=== PATIENT | female | born 1975 | race Caucasian/White ===

== ENCOUNTER → 2017-12-30 10:28 | Outpatient (CLI) | payer BC, SELFPAY ==
[2018-01-03 03:07] LABS: IgG, Quant 887 mg/dL (700-1600); Immunoglobulin G, Subclass 1 533 mg/dL (248-810); Immunoglobulin G, Subclass 2 212 mg/dL (130-555); Immunoglobulin G, Subclass 3 58 mg/dL (15-102)
[2018-01-03 10:37] LABS: Immunoglobulin G, Subclass 4 4 mg/dL (2-96)
== END ==
LOC: LAB 10:29 → LABSPEC 13:43
PROVIDERS: Visit Provider Otolaryngology Otolaryngic Allergy
DX: J30.1 Allergic rhinitis due to pollen (principal)
CPT/HCPCS: 82784; 82787

== ENCOUNTER → 2018-03-23 10:50 | Outpatient (CLI) | payer BC, SELFPAY ==
[2018-03-23 12:12] LABS: T4 Free Direct 0.91 ng/dL (0.76-1.46); Thyroid Stim Hormone (TSH) 2.04 uIU/mL (0.358-3.74)
== END ==
PROVIDERS: Family Provider Internal Medicine; PCP Internal Medicine; Visit Provider Nurse Practitioner Family
DX: E66.9 Obesity, unspecified (principal); E03.9 Hypothyroidism, unspecified
CPT/HCPCS: 36415; 84439; 84443

== ENCOUNTER → 2018-04-21 13:57 | Outpatient (CLI) | payer BC, SELFPAY ==
[2018-04-21 14:25] LABS: Ferritin 111 ng/mL (8-252); Iron 86 ug/dL (50-170); Iron Binding Capacity,Total 383 ug/dL (250-450)
== END ==
PROVIDERS: Family Provider Internal Medicine; PCP Internal Medicine; Visit Provider Psychiatry & Neurology Neurology
DX: E61.1 Iron deficiency (principal); G25.81 Restless legs syndrome
CPT/HCPCS: 36415; 82728; 83540; 83550

== ENCOUNTER → 2018-05-01 17:56 | Outpatient (CLI) | payer BC, SELFPAY ==
[2018-05-08 06:07] LABS: HPV Genotype 16, Aptima Negative (Negative)
[2018-05-08 11:09] LABS: HPV APTIMA, High Risk Positive (Negative); HPV Genotype 18,45 Aptima Negative (Negative)
== END ==
PROVIDERS: Family Provider Internal Medicine; PCP Internal Medicine; Visit Provider Nurse Practitioner Women's Health
DX: Z12.4 Encounter for screening for malignant neoplasm of cervix (principal)
CPT/HCPCS: 88175; G0145

== ENCOUNTER 2018-06-05 13:00 | Outpatient (RCR) | payer BC, SELFPAY | END 2018-06-11 23:59 | LOC: NS 13:00 | PROVIDERS: Family Provider Internal Medicine; PCP Internal Medicine; Visit Provider Nurse Practitioner Family | DX: E66.9 Obesity, unspecified (principal); Z68.30 Body mass index [BMI] 30.0-30.9, adult; Z71.3 Dietary counseling and surveillance | CPT/HCPCS: 97802; 97803 ==

== ENCOUNTER 2018-08-13 20:33 | Emergency (ER) | payer BC, SELFPAY ==
[2018-08-13 20:36] VITALS: BP 162/80; PULSE 92; RESP 18; TEMP 35.9; O2SAT 98; BMI 29.1
--- NOTE | 2018-08-13 21:18 | ED.VISSUMM ---
- ER Visit Summary Date of Service: 08/13/18 Chief Complaint: Rash History of Present Illness: The patient is a 42 F who had right knee surgery on July 31 with [facility] in [place]. She states the put stem cells into a cartilage defect in her knee. She noted a rash-like spots around the knee 3 days ago. It is not overlying the area of the incision. She initially thought she does have bruising with the lesions seem to be spreading. She has not had fever or chills. She has not had significant drainage from the wound. Physical Examination: Vital signs significant for blood pressure 162/80, otherwise unremarkable. Patient sitting upright in bed no acute distress. Right lower extremity examination reveals a clean incision over the anterior right knee. There are a few areas of ecchymosis noted to both the medial and lateral sides of the patella where the brace is rubbing against her skin. There are a few patchy areas of folliculitis along the medial distal aspect of the right knee. This is the area that the patient describes as spreading towards the back of her knee. There is no significant lower extremity edema and only minimal calf tenderness. She has strong distal pulses. Test Results: [] Emergency Department Course and Treatment: Patient does raise concern about possibility of blood clot as she does have a history of lupus and has had prior clot. Ultrasound is unavailable at this time but should be written for an order to come back tomorrow for a venous ultrasound. My clinical suspicion for clot is low she would not be given a dose of anticoagulants at this time. Patient will be started on doxycycline to help cover skin bacteria with her folliculitis. Treatment Plan: [] Disposition: Discharge Impression: Folliculitis This note was generated with [employer] dictation software. It may contain incorrect words, spelling, and punctuation that were not noted in review of the chart prior to signing ED Disposition - Plan for ED Patient: Disposition: Home or Assisted Living Chief Complaint: Rash Instructions: ED Folliculitis, ED Leg Swelling Unilateral Prescriptions: Doxycycline Monohydrate 100 mg PO BID #20 capsule Referrals: Mojgan Cintron MD [Primary Care Provider] - Additional Instructions: Vascular ultrasound will call you tomorrow to set up a time for ultrasound of your leg.
[2018-08-13] MEDS: Doxycycline 100 MG CAPSULE PO (21:25)
--- OUTSIDE RECORDS SUMMARY | 2018-10-07 01:51 | XMS RPT_ITS ---
:1975 Author Organization [employer] Address [address] [place] [id number] Phone Care Team Providers Name Role Phone Junaid Ortiz MD Unavailable Reason for Visit Reason For Visit Description Start Date Postop - 1st visit Preliminary reason for visit data, not yet signed by the author as of right knee post TOMAS procedure - Autologous Chondrocyte Implantation - Medial femoral condyle 1.5 x 2.5 full-thickness condylar defect medial femoral condyle. on 07/31/2018 Preliminary reason for visit data, not yet signed by the author as of Chief Complaint Chief Complaint Description Start Date right knee post TOMAS procedure - Autologous Chondrocyte Implantation - Medial femoral condyle 1.5 x 2.5 full-thickness condylar defect medial femoral condyle. on 07/31/2018 Preliminary chief complaint data, not yet signed by the author as of Instructions Instruction Description Start Date CompletedPatient advised to follow-up with Primary Care Physician for BMI management. Plan of Care Type Date Detail Appointment 11:00 AM Junaid Ortiz MD, [address] [place], [address], Appointment 09:45 AM Junaid Ortiz MD, [address] [place], [address], Medications Medication Instructions Start Stop Generic Name NDC Provider Date Date NORCO 10-325 MG Take 1 tablet HYDROCODONE-ACETAMIN 02394885203 Junaid Adrian TABS by mouth INDRA Ortiz MD 6 hours as needed for pain SYNTHROID 125 1 tablet daily LEVOTHYROXINE SODIUM 57079607975 Junaid J MCG TABS /07 Angel CHRISTINA PLAQUENIL 200 1 tablet twice HYDROXYCHLOROQUINE 14904823997 Junaid J MG TABS daily / SULFATE Angel CHRISTINA MICROGESTIN 1 tablet daily NORETHINDRONE 56126684642 Junaid J 1.5 1.5- ACET-ETHINYL EST Angel CHRISTINA MG-MCG TABS AUVI-Q 0.3 as directed EPINEPHRINE [id number] Junaid J MG/0.3ML SOAJ Angel CHRISTINA LIDOCAINE 5 % apply 2x day LIDOCAINE [id number] Junaid J CREA Angel CHRISTINA PHENERGAN 25MG Take 1 tablet PHENERGAN 25MG Junaid J by mouth Angel CHRISTINA 6 hours as needed for [place] NABUMETONE 500 twice a day NABUMETONE 31870137796 Junaid J MG TABS / Angel CHRISTINA ELETRIPTAN 1 tablet as ELETRIPTAN 47780719324 Nay HYDROBROMIDE 40 needed / HYDROBROMIDE Martell VISITING PROFESSOR MG TABS TRIAMCINOLONE twice daily as TRIAMCINOLONE 00342156291 Nay ACETONIDE 0.025 directed ACETONIDE Martell VISITING PROFESSOR % CREA CETIRIZINE HCL 1 tablet as CETIRIZINE HCL 02928820745 Nay 10 MG TABS needed / Martell VISITING PROFESSOR GABAPENTIN 400 1 capsule 1-2 GABAPENTIN 64258433846 Nay MG CAPS times daily at Martell VISITING PROFESSOR bedtime DELTASONE 20 MG as directed PREDNISONE 59470679826 Nay TABS /07 Martell VISITING PROFESSOR NASACORT daily as TRIAMCINOLONE 17769565293 Nay ALLERGY 24HR 55 directed ACETONIDE Martell VISITING PROFESSOR MCG/ACT AERO VITAMIN D 1 capsule once ERGOCALCIFEROL 99247179322 Nay (ERGOCALCIFEROL per week /07 Martell VISITING PROFESSOR ) [address] UNIT CAPS ZONISAMIDE 100 1 capsule ZONISAMIDE 39627643153 Nay MG CAPS twice daily /07 Martell VISITING PROFESSOR OMEPRAZOLE 20 1 tablet twice OMEPRAZOLE 14722886915 Nay MG TBEC daily Martell VISITING PROFESSOR Conditions or Problems Problem Name Problem Onset Status Entry Provider Comment Standard Annotate Code Date Date Description Patella, 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 lateral (SNOMED CT) 10/14 Herve CHRISTINA lateral meniscus of cartilage knee, AND/OR meniscus current, of knee unspecified laterality, unspecified tear type, initial encounter Closed 970891582 Active Young Shine Closed fracture fracture of (SNOMED CT) 10/14 Herve CHRISTINA of tibial lateral plateau portion of left tibial plateau, with routine healing, subsequent encounter Allergies, Adverse Reactions, Alerts Allergy Name Reaction Start Date Severity Status Provider Description PLANT POLLENS (HAY Critical Active Nay Martell FEVER) VISITING PROFESSOR MOLD Critical Active Nay Martell VISITING PROFESSOR STINGING INSECTS Critical Active Nay Martell VISITING PROFESSOR DUST MITES Critical Active Nay Martell VISITING PROFESSOR ANIMALS Critical Active Nay Martell VISITING PROFESSOR DAIRY Critical Active Nay Martell VISITING PROFESSOR WHEAT Critical Active Nay Martell VISITING PROFESSOR PERCOCET vomiting Critical Active Nay Martell (OXYCODONE-ACETAMIN VISITING PROFESSOR OPHEN TABS) CEPHALOSPORIN Hives Critical Active Leidy Stratton PT FLAGYL Hives Critical Active Leidy (METRONIDAZOLE) Viral PT DILAUDID Blood Pressure Critical Active Leidy (HYDROMORPHONE HCL) Drops Viral PT CODEINE PHOSPHATE Difficulty Critical Active Leidy breathing, hand Viral PT tingling Social History No information available. Vital Signs Date Name Value Unit Description BMI (Body Mass 30.06 kg/m2 Body Mass Index Index) [Ratio] Preliminary vital sign data, not yet signed by the author as of BP Diastolic 87 mm[Hg] blood pressure, diastolic Preliminary vital sign data, not yet signed by the author as of BP Systolic 124 mm[Hg] blood pressure, systolic Preliminary vital sign data, not yet signed by the author as of Heart Rate 102 /min pulse rate E&M Preliminary vital sign data, not yet signed by the author as of Height 65 [in_us] height E&M Preliminary vital sign data, not yet signed by the author as of Height 165 cm height in centimeters E&M Preliminary vital sign data, not yet signed by the author as of Weight Measured 180 [lb_av] weight E&M Preliminary vital sign data, not yet signed by the author as of Weight Measured 82 kg weight in kilograms E&M Preliminary vital sign data, not yet signed by the author as of Results Date Name Value Unit Range Flag Description Office Visit: Postop - 1st visit, Rm: 12 MEDS REVIEW Done Documentation of current medications (procedure) Preliminary observation data, not yet signed by the author as of Preliminary observation data, not yet signed by the author as of Clinical Summary: HMSPatientID FOP account number Procedures Code Procedure Name Date Entry Date G8732 Pain assessment not documented - reason not given G8427 Current medications documented 1036F Tobacco screening was negative - non user G8417 BMI documented as above normal parameters - follow-up documented G8783 Blood pressure within normal parameters - no follow-up required [facility]-[id number] Patient Encounter Medications Administered No information available. Immunizations No information available. Advance Directives There may be information available, but it has not been provided by the sender. Assessments There may be information available, but it has not been provided by the sender. Review of Systems There may be information available, but it has not been provided by the sender. Family History There may be information available, but it has not been provided by the sender. History of Past Illness There may be information available, but it has not been provided by the sender. History of Present Illness There may be information available, but it has not been provided by the sender.
--- OUTSIDE RECORDS SUMMARY | 2018-10-07 01:52 | XMS RPT_ITS ---
:1975 Author Organization [place] Support Name Relationship Address Phone NATANAEL OLMOS Unavailable [address] + [place] [address] WC Unavailable [address] + [place] [address] NATANAEL OLMOS Unavailable [address] + [place] [address] WC Un[address] + [place] [address] NATANAEL OLMOS Unavailable [address] + [place] [address] WC Un[address] + [place] [address] NATANAEL OLMOS Unavailable [address] + [place] [address] WC Un[address] + [place] [address] NATANAEL OLMOS Unavailable [address] + [place] [address] WC Unavailable [address] + [place] [address] NATANAEL OLMOS Unavailable [address] + [place] [address] WC [address] + [place] [address] WC Unavailable [address] + [place] [address] WC Un[address] + [place] [address] WC Un[address] + [place] [address] [facility] Unavailable [address] + [place] [address] [place] DE [place] Unavailable Unavailable + [facility] Unavailable [address] + [place] [address] [place] Unavailable Unavailable + [facility] Unavailable [address] + [place] [address] [facility] Unavailable [address] + [place] [address] [facility] Unavailable [address] + [place] [address] [facility] Unavailable [address] + [place] [address] BARNES, IRAIDA Unavailable [address] + [place] [address] [facility] Unavailable [address] + [place] [address] BARNES, IRAIDA Unavailable [address] + [place] [address] [facility] Unavailable [address] + [place] [address] BARNES, IRAIDA Unavailable [address] + [place] [address] [facility] Unavailable [address] + [place] [address] BARNES, IRAIDA Unavailable Unavailable + WC Unavailable [address] + [place] [address] BARNES, IRAIDA Unavailable Unavailable + WC Unavailable [address] + [place] [address] BARNES, IRAIDA Unavailable Unavailable + WC Unavailable [address] + [place] [address] Care Team Providers Name Role Phone Young Kirkpatrick Attending Unavailable CANDACE SIMPSON Primary Care Unavailable Alex Soares Attending Unavailable Alex Soares Referring Unavailable CANDACE SIMPSON Primary Care Unavailable CANDACE SIMPSON Primary Care Unavailable Farida Champagne Attending Unavailable Juarez Martin Attending Unavailable DOCTOR, OUT OF TOWN Referring Unavailable CANDACE SIMPSON Primary Care Unavailable MISTY ASHBY Attending Unavailable CANDACE SIMPSON Primary Care Unavailable MISTY ASHBY Referring Unavailable Oleghe, Efewongbe Attending Unavailable DOCTOR, OUT OF TOWN Referring Unavailable Oleghe, Efewongbe Attending Unavailable Oleghe, Efewongbe Referring Unavailable CANDACE SIMPSON Primary Care Unavailable Oleghe, Efewongbe Attending Unavailable Oleghe, Efewongbe Referring Unavailable GutierrezKeven VAULT SERVICE MECHANIC-C Attending Unavailable Oleghe, Efewongbe Referring Unavailable CANDACE SIMPSON Primary Care Unavailable GutierrezKeven VAULT SERVICE MECHANIC-C Attending Unavailable Gutierrez, Keven VAULT SERVICE MECHANIC-C Referring Unavailable Oleghe, Efewongbe Primary Care Unavailable Loi Jerez Attending Unavailable Oleghe, Efewongbe Primary Care Unavailable Loi Jerez Referring Unavailable Gutierrez, Keven VAULT SERVICE MECHANIC-C Attending Unavailable Oleghe, Efewongbe Primary Care Unavailable Munford, Molly Attending Unavailable Oleghe, Efewongbe Referring Unavailable Oleghe, Efewongbe Primary Care Unavailable Lida Womack Attending Unavailable Oleghe, Efewongbe Primary Care Unavailable MunfordLida mckeon Referring Unavailable Gutierrez, Keven VAULT SERVICE MECHANIC-C Attending Unavailable Oleghe, Efewongbe Referring Unavailable Oleghe, Efewongbe Primary Care Unavailable Lida Womack Attending Unavailable Vu Lida Referring Unavailable Oleghe, Efewongbe Primary Care Unavailable Gutierrez, Keven VAULT SERVICE MECHANIC-C Attending Unavailable Oleghe, Efewongbe Primary Care Unavailable Amy Judd Attending Unavailable Oleghe, Efewongbe Referring Unavailable Oleghe, Efewongbe Primary Care Unavailable Champagne, Farida Attending Unavailable Champagne, Farida Attending Unavailable Champagne, Farida Referring Unavailable Oleghe, Efewongbe Primary Care Unavailable CHE GAFFNEY D Attending Unavailable JEANMARIE ORTIZ Referring Unavailable MANZOGarrett, CHE D Referring Unavailable THEO MCNEAL Attending Unavailable IMCA Referring Unavailable PROBLEMS PROBLEMS DATE TYPE CONDITION / CODE ATTENDING STATUS SOURCE 05/02/2018 Unknown Z12.4 - Encounter Lida Womack Active [place] for screening for Community malignant neoplasm [facility] / [facility] Z12.4(ICD-10) 05/01/2018 Unknown Z12.31 - Encounter Lida Womack Active [place] for screening Community mammogram for Hospital malignant neoplasm Repository of breast / Z12.31(ICD-10) 04/24/2018 Unknown E61.1 - Iron Loi Jerez Active [place] deficiency / Community E61.1(ICD-10) Hospital Repository 04/24/2018 Unknown G25.81 - Restless Loi Jerez Active [place] legs syndrome / Community G25.81(ICD-10) Hospital Repository 03/23/2018 Unknown E66.9 - Obesity, Keven Gutierrez Active [place] unspecified / VA[employer] SERVICE MECHANIC-C Community E66.9(ICD-10) Hospital Repository 03/23/2018 Unknown E03.9 - Gutierrez, Keven Active [place] Hypothyroidism, VAULT SERVICE MECHANIC-C Community unspecified / Hospital E03.9(ICD-10) Repository 01/31/2018 Unknown G43.909 - Migraine, Oleghe, Active [place] unspecified, not Efewongbe Community intractable, Hospital without status Repository migrainosus / G43.909(ICD-10) 01/31/2018 Unknown N93.9 - Abnormal Oleghe, Active [place] uterine and vaginal [facility] bleeding, Hospital unspecified / Repository N93.9(ICD-10) 12/30/2017 Unknown J30.1 - Allergic MISTY ASHBY Active [place] rhinitis due to Community pollen / Hospital J30.1(ICD-10) Repository 02/23/2016 Active Raynaud's syndrome CHE GAFFNEY Active [facility] without gangrene / [facility] I73.00(ICD-10) Repository 05/10/2013 Active Other organ or CHE GAFFNEY Active [facility] system involvement [facility] [place] in systemic lupus Repository erythematosus / M32.19(ICD-10) 10/17/2017 Active Other alf CHE GAFFNEY Active [facility] (current) drug [facility] [place] therapy / Repository Z79.899(ICD-10) PROCEDURES PROCEDURES No Procedure Records FoundRESULTS RESULTS VENOUS DUPLEX LOWER Observed: 08/18/2018 Status: F Source: [place] EXTREMITY 7:[address] [facility] REPOSITORY [facility] Cardiovascular Services [address] [place] [address] Venous Duplex US, Unilateral 08/14/18 1553 MR#: [id number] Acct: [id number] Name: ALYSON OLMOS Rep #: [id number] : 1975 42 From: Ko Hamilton MD Attending Dr: Farida Champagne MD Status: REG CLI Ordering Dr: Farida Champagne MD Date: 08/14/18 Location: [facility] Sex: F C Admitted: Reason For Study: RLE Pain RIGHT GSV is normal. CFV is compressible, spontaneous, phasic, competent and demonstrates normal augmentation. FV is compressible, spontaneous, phasic, competent and demonstrates normal augmentation. POP V is compressible, spontaneous, phasic, competent and demonstrates normal augmentation. T/P Trunk is compressible. PTV is compressible. RT PerV is compressible. Procedure Exam performed in department. <> Interpretation Summary Deep veins of the right lower extremity are patent and compressible segmentally. There is no evidence of right lower extremity deep vein thrombosis. Valvular competence appears intact within the proximal deep venous system on the right . The right greater saphenous vein appears patent and compressible segmentally. Ordering Physician: Farida Champagne Referring Physician: Junaid Knight ([facility]) Performed By: Fallon Fernandez RVT and Student 08/18/18 0708 Date Ko Hamilton MD CC: Mojgan Cintron MD; Farida Champagne MD Date Dictated: 08/14/18 1553 Date Transcribed: 08/18/18 0708 Lump Machine Operator: Signed EMERGENCY DEPARTMENT Observed: 08/14/2018 Status: F Source: [place] SUMMARY 12:47 AM [facility] REPOSITORY [facility] Medical Records Department [address] [place] [address] Emergency Department Summary 08/13/18 2118 MR#: [id number] Acct: [id number] Name: ALYSON OLMOS Rep #: [id number] : 1975 42 From: Farida Champagne MD PCP: Mojgan Cintron MD Status: DEP ER - ER Visit Summary Date of Service: 08/13/18 Chief Complaint: Rash History of Present Illness: The patient is a 42 F who had right knee surgery on July 31 with [facility] in [place]. She states the put stem cells into a cartilage defect in her knee. She noted a rash-like spots around the knee 3 days ago. It is not overlying the area of the incision. She initially thought she does have bruising with the lesions seem to be spreading. She has not had fever or chills. She has not had significant drainage from the wound. Physical Examination: Vital signs significant for blood pressure 162/80, otherwise unremarkable. Patient sitting upright in bed no acute distress. Right lower extremity examination reveals a clean incision over the anterior right knee. There are a few areas of ecchymosis noted to both the medial and lateral sides of the patella where the brace is rubbing against her skin. There are a few patchy areas of folliculitis along the medial distal aspect of the right knee. This is the area that the patient describes as spreading towards the back of her knee. There is no significant lower extremity edema and only minimal calf tenderness. She has strong distal pulses. Test Results: [] Emergency Department Course and Treatment: Patient does raise concern about possibility of blood clot as she does have a history of lupus and has had prior clot. Ultrasound is unavailable at this time but should be written for an order to come back tomorrow for a venous ultrasound. My clinical suspicion for clot is low she would not be given a dose of anticoagulants at this time. Patient will be started on doxycycline to help cover skin bacteria with her folliculitis. Treatment Plan: [] Disposition: Discharge Impression: Folliculitis This note was generated with As It Is dictation software. It may contain incorrect words, spelling, and punctuation that were not noted in review of the chart prior to signing ED Disposition - Plan for ED Patient: Disposition: Home or Assisted Living Chief Complaint: Rash Instructions: ED Folliculitis, ED Leg Swelling Unilateral Prescriptions: Doxycycline Monohydrate 100 mg PO BID #20 capsule Referrals: Mojgan Cintron MD [Primary Care Provider] - Additional Instructions: Vascular ultrasound will call you tomorrow to set up a time for ultrasound of your leg. What to do if you have Problems For any increased pain, shortness of breath, bleeding, nausea or vomiting, chest pain, or any unexpected problems, contact your Primary Care Provider. Call [facility] ([phone]) or report to the closest Emergency Room. Call 911 if necessary. 08/14/18 0047 <Electronically signed by Farida Champagne MD> Date Farida Champagne MD Cosigner Signature (If Indicated): Date CC: Mojgan Cintron MD DISCHARGE INSTRUCTION Observed: 08/13/2018 Status: F Source: [place] 9:20 PM [facility] Medical Records Department [address] [place] [address] Discharge Instruction 08/13/189 MR#: [id number] Acct: [id number] Name: ALYSON OLMOS Rep #: [id number] : 1975 42 From: Farida Champagne MD PCP: Mojgan Cintron MD Status: PRE ER ED Disposition - Plan for ED Patient: Disposition: Home or Assisted Living Chief Complaint: Rash Instructions: ED Folliculitis, ED Leg Swelling Unilateral Prescriptions: Doxycycline Monohydrate 100 mg PO BID #20 capsule Referrals: Mojgan Cintron MD [Primary Care Provider] - Additional Instructions: Vascular ultrasound will call you tomorrow to set up a time for ultrasound of your leg. What to do if you have Problems For any increased pain, shortness of breath, bleeding, nausea or vomiting, chest pain, or any unexpected problems, contact your Primary Care Provider. Call [facility] ([phone]) or report to the closest Emergency Room. Call 911 if necessary. 08/13/182119 <Electronically signed by Farida Champagne MD> Date Farida Champagne MD Cosigner Signature (If Indicated): Date CC: Mojgan Cintron MD URGENT CARE VISIT Observed: 06/24/2018 Status: F Source: [place] REPORT 12:48 PM [facility] [address] [place] [address] OFFICE VISIT Date of Service: 06/24/18 MR#: [id number] Acct: [id number] Name: ALYSON OLMOS Rep #: [id number] : 1975 Provider: ANDREW Judd Age/Sex: 42/F Location: [facility] Status: Signed Intake Vital Signs06/24/18 Height 5 ft 5.5 in Intake Visit Reasons: INGROWN TOENAIL Chief Complaint: ingrown toenails Allergies Cephalosporins Allergy (Verified 06/24/18 12:12) Shortness of breath codeine Allergy (Verified 06/24/18 12:12) Shortness of breath metronidazole [From Flagyl] Allergy (Verified 06/24/18 12:12) Swelling Medications hydroxychloroquine 200 mg tablet 200 mg PO QDAY 12/06/17 [History Confirmed 06/24/18] omeprazole 20 mg capsule,delayed release 20 mg PO BID #60 cap 05/12/18 [Rx Confirmed 06/24/18] levothyroxine 125 mcg tablet 125 mcg PO DAILY tab 06/24/18 [History] norethindrone acetate-ethinyl estradiol 1.5 mg-30 mcg tablet 1 tab PO DAILY 06/24/18 [History Confirmed 06/24/18] zonisamide 50 mg capsule PO 30 Days #60 cap 06/24/18 [History Confirmed 06/24/18] PFSH Medical History GERD (gastroesophageal reflux disease) (Chronic) High cholesterol (Chronic) Goiter (Chronic) Chronic bronchitis (Chronic) Back problem (Chronic) Blood clot in vein (Chronic) Thyroid disease (Chronic) Asthma (Chronic) Frequent headaches (Chronic) Shortness of breath (Chronic) Knee pain (Chronic) Fatigue (Chronic) Arthritis (Chronic) Lupus (Chronic) Hay fever (Acute) Vocal cord dysfunction (Acute) Surgical History History of (Chronic) History of knee surgery (Chronic) Status post LASIK surgery (Chronic) Family History Father Asthma High cholesterol Mother Hypertension Arthritis Sister Ovarian cancer Other COPD (chronic obstructive pulmonary disease) Diabetes Thyroid disorder Social History Smoking Status: Never smoker alcohol intake: never substance use type: does not use caffeine: Yes frequency: daily seatbelt use: always do you feel safe at home: Yes 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 She states she had a pedicure and when her toe nail was dug out a bunch of pus came out with it. She is concerned because she has stem cell M.A.C.Y surgery scheduled in 4 days at the [facility]. The lft greatt toe got red and is sore to touch. She has no other health issues. no fever or chills. ROS Const Constitutional: No body ache, chills, fatigue, fever(s), night sweats, change in appetite, weakness, frequent falls, headache(s) or excessive sweating Eyes Eyes: No visual disturbances, light sensitivity, eye pain or change in vision ENT ENT: No ear pain, ear discharge, hearing loss, dizziness/vertigo, nasal discharge, difficulty swallowing, sore throat, neck pain or headache(s) Resp Respiratory: No cough, chest congestion, hemoptysis, shortness of breath or wheezing Cardio Cardiology: No shortness of breath, irregular heart rhythm, lightheadedness, chest pain at rest, chest pain with exertion, generalized swelling, orthopnea, palpitations or excessive sweating Gastro GI: No difficulty swallowing, abdominal pain, bloating, change in bowel habits, diarrhea, blood in stool, Black,tarry stools, nausea/dyspepsia or vomiting Genitourinary-Female: No burning urination, urinary frequency, urinary urgency, blood in urine or Vaginal Itching Musc Musculoskeletal: Positive for joint pain (right knee, h/o fracture); no back pain, numbness, tingling or neck pain Skin Skin: Positive for skin swelling and wounds (left ingrown toenail, infected); no lesions, itching or rash Neuro Neurology: No visual disturbances, numbness, tingling, abnormal speech, confusion, unsteady gait/balance, dizziness, weakness, frequent falls, loss of vision or headache(s) Psych Psychiatric: No change in appetite, No confusion, No anxiety, No depression, No panic attacks, No hallucinations Endo Endocrine: No fatigue, cold intolerance, excessive sweating, flushing, heat intolerance or increased thirst/drinking Aller/Imm Allergy/Immunologic: No wheezing, itchy eyes, food intolerance, seasonal allergy symptoms or hives Tolu/Lymp Hematologic/Lymphatic: No easy bruising Exam Const General: cooperative, no acute distress Nutritional Appearance: overweight (moderately) Orientation: alert, oriented x3 HENMT Head: normal to inspection, normocephalic Ears: hearing grossly normal bilaterally, external ears normal Face and sinus: normal facial exam Mouth: oropharynx normal Throat: posterior oropharynx normal Eyes General: appearance normal, both eyes and all related structures Visual Merlos: normal visual merlos by confrontation Eyelids: eyelids normal Conjunctivae: conjunctivae normal Sclera: sclerae normal Pupils: PERRL EOM: EOM intact bilaterally Neck Neck: normal visual inspection, supple, no lymphadenopathy Lymphatic: no lymphadenopathy noted Chest Chest palpation AND inspection: normal inspection of the chest Resp Effort AND Inspection: normal respiratory effort, able to speak in complete sentences, symmetric chest movement, no audible wheezes, no cough, not labored, no respiratory distress Auscultation: Bilateral: Clear to Auscultation Cardio Rate: regular rate Rhythm: regular rhythm Heart Sounds: S1 normal, S2 normal GI Inspection: normal to inspection Auscultation: normal bowel sounds Palpation: soft, no hepatosplenomegaly, no pulsatile masses Skin General: no rashes or lesions noted, erythema (left great toe paronychia with some erythema, no purulence at this time. ), other (tender to touch) Neuro General: alert, oriented x3, moves all extremities Speech: speech normal Gait: normal gait Motor: muscle tone normal throughout Extrem General: normal exam except as noted (left great toe paronychia), normal gait Psych Appearance: grossly normal, well kempt Mental Status: mental status grossly normal Affect: normal affect Speech and Movement: speech and movement normal Attitude: cooperative Thought Process: normal Thought Content: normal Judgment: judgment good Assessment AND Plan Problems 1. Paronychia of great toe, left L03.032 Plan Augmentin 875 mg bid X 10 days Patient has M.A.C.Y. Stem cell surgery scheduled for this coming Tuesday06/28/2018 on ther left knee at [facility]. She is advised to call her surgeon and let him know she has this infection brewing as he may want to see her Tuesday or postpone her surgery until infection is completely gone. She states she understands. Coding Level of Care Code Off vis,est,level 3 Diagnoses Paronychia of great toe, left L03.032 06/24/18 1248 <Electronically signed by Amy MORALES> Date Amy MORALES Cosigner Signature: Date (if applicable) CC: INTERNAL MEDICINE Observed: 05/02/2018 Status: F Source: [place] OFFICE VISIT 4:19 PM [facility] [address] [place] [address] [place] [address] OFFICE VISIT Date of Service: 05/02/18 MR#: [id number] Acct: [id number] Name: ALYSON OLMOS Rep #: [id number] : 1975 Provider: Keven Gutierrez NP Age/Sex: 42/F Location: [facility] Status: Signed Intake Vital Signs05/02/18 Height 5 ft 5 in Intake Visit Reasons: PT STATES NEEDS 6 WK FU Chief Complaint: f/u on poison rosa and weight loss options Is patient in pain?: No Allergies Cephalosporins Allergy (Verified 05/01/18 13:20) Shortness of breath codeine Allergy (Verified 05/01/18 13:20) Shortness of breath metronidazole [From Flagyl] Allergy (Verified 05/01/18 13:20) Swelling Medications Levothyroxine [Synthroid] 125 mcg PO DAILY 07/30/17 [History Confirmed 05/02/18] benzonatate 100 mg capsule 200 mg PO TID PRN #30 cap 12/06/17 [Rx Confirmed 05/02/18] hydroxychloroquine 200 mg tablet 200 mg PO QDAY 12/06/17 [History Confirmed 05/02/18] bimatoprost 0.03 % drops with applicator, eyelash base 1 applic TOPICAL QHS 01/31/18 [History Confirmed 05/02/18] cetirizine 10 mg tablet 10 mg PO QDAY 01/31/18 [History Confirmed 05/02/18] epinephrine 0.3 mg/0.3 mL injection, auto-injector 0.3 mg IM ONCE 01/31/18 [History Confirmed 05/02/18] frovatriptan 2.5 mg tablet 2.5 mg PO ONCE 01/31/18 [History Confirmed 05/02/18] hydrocortisone 2.5 % topical cream 1 applic TOPICAL BID 01/31/18 [History Confirmed 05/02/18] hydroxyzine HCl 25 mg tablet 25 mg PO TID-QID PRN 01/31/18 [History Confirmed 05/02/18] mometasone 50 mcg/actuation nasal spray 2 spray INTRANASAL QDAY 01/31/18 [History Confirmed 05/02/18] nabumetone 500 mg tablet 500 mg PO BID PRN 01/31/18 [History Confirmed 05/02/18] omeprazole 20 mg capsule,delayed release 20 mg PO BID cap 01/31/18 [History Confirmed 05/02/18] tramadol 50 mg tablet 50 mg PO Q6H 01/31/18 [History Confirmed 05/02/18] pro omega PO 03/23/18 [History Confirmed 05/02/18] ergocalciferol (vitamin D2) 50,000 unit capsule 50,000 unit PO QWEEK #12 cap 04/07/18 [Rx Confirmed 05/02/18] fluocinolone 0.01 % topical body oil 1 applic TOPICAL BID 05/02/18 [History Confirmed 05/02/18] prednisone 10 mg tablet See Label Instructions PO QDAY #30 tab 05/02/18 [Rx Confirmed 05/02/18] Is last menstrual period known: Yes [facility] Medical History GERD (gastroesophageal reflux disease) (Chronic) High cholesterol (Chronic) Goiter (Chronic) Chronic bronchitis (Chronic) Back problem (Chronic) Blood clot in vein (Chronic) Thyroid disease (Chronic) Asthma (Chronic) Frequent headaches (Chronic) Shortness of breath (Chronic) Knee pain (Chronic) Fatigue (Chronic) Arthritis (Chronic) Lupus (Chronic) Surgical History History of (Chronic) History of knee surgery (Chronic) Status post LASIK surgery (Chronic) Family History Father Asthma High cholesterol Mother Hypertension Arthritis Sister Ovarian cancer Social History Smoking Status: Never smoker alcohol intake: never substance use type: does not use caffeine: Yes frequency: daily seatbelt use: always do you feel safe at home: Yes 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 Her past medical history includes migraine, GERD, high cholesterol, [place], thyroid disease, asthma, fatigue, lupus, and arthritis. Patient stated she had poison rosa to her left arm, left side, left-sided breast and rib cage, and back x 2 months. She has tried multiple creams from home including hydrocortisone cream and two doses of prednisone total of 20 mg. per patient her poison rosa is spreading and does not cause pain, but itches. She has not noticed any drainage from the areas. She is concerned about weight gain and wanted to discuss weight loss options. She was previously referred to why weight program at [facility] which her appointment is set for May 17. She was inquiring about medications that could be prescribed for her weight loss. She is concerned because she is going to have right knee surgery and is afraid of not being able to exercise on a regular basis. She is keeping track of her calorie intake and her exercise regimen on a daily basis. The patient otherwise denies any fever, chills, nausea, vomiting, shortness of breath, chest pain or pressure, palpitations, orthopnea, lower extremity edema, syncope or presyncopal episodes. ROS Const Constitutional: Positive for headache(s); no weight change, body ache, chills, fatigue, sleep problems, fever(s), change in appetite, snoring, weakness, frequent falls or excessive sweating Eyes Eyes: No change in vision, eye pain, light sensitivity or blurry vision ENT ENT: Positive for headache(s); no abnormal hearing, ear pain, tinnitus, nasal congestion, sore throat or neck pain Resp Respiratory: No snoring, cough, shortness of breath or wheezing Cardio Cardiology: No excessive sweating, chest pain at rest, chest pain with exertion, shortness of breath, dyspnea on exertion, palpitations, orthopnea or lightheadedness Gastro GI: No abdominal pain, change in bowel habits, constipation, diarrhea, vomiting, nausea/dyspepsia or cramping Genitourinary-Female: No burning urination, painful urination, urinary incontinence, urinary frequency, abnormal vaginal bleeding, pelvic pain or other Musc Musculoskeletal: No neck pain, abnormal walking, joint pain, back pain, limited range of motion, numbness, tingling or muscle weakness Skin Skin: Positive for rash (poision rosa on arms, chest, legs) and other (poison rosa ); no redness, dry skin, itching, lesions or wounds Breast Breast: Positive for other (poison rosa ) Neuro Neurology: Positive for headache(s); no weakness, frequent falls, abnormal hearing, abnormal walking, numbness, tingling, abnormal speech, dizziness or memory loss Psych Psychiatric: No change in appetite, No memory loss, No anxiety, No depression, No Thoughts of harming yourself/Others Endo Endocrine: No fatigue, excessive sweating, cold intolerance, increased thirst/drinking, heat intolerance, flushing or increased hunger Aller/Imm Allergy/Immunologic: No wheezing, itchy eyes, hives or seasonal allergy symptoms Tolu/Lymp Hematologic/Lymphatic: No easy bleeding, easy bruising or enlarged lymph nodes Exam Const General: cooperative, comfortable, no acute distress Nutritional Appearance: obese, well nourished Orientation: alert, oriented x3 Limitations: mental status not altered [facility] Head: normal to inspection Ears: hearing grossly normal bilaterally Nose: external nose normal Eyes General: appearance normal, both eyes and all related structures Resp Effort AND Inspection: normal respiratory effort, able to speak in complete sentences, normal respiratory pattern, symmetric chest movement, no audible wheezes, no cough Auscultation: Bilateral: Clear to Auscultation Cardio Palpation: normal PMI Rate: regular rate Heart Sounds: S1 normal, S2 normal, normal S1 and S2, no click, no gallops, no murmurs, no rubs GI Inspection: normal to inspection Auscultation: normal bowel sounds, no hyperactive bowel sounds, no hypoactive bowel sounds Palpation: soft, no hepatosplenomegaly Musc Musculoskeletal: No joint tenderness, decreased ROM or muscle weakness Skin Rashes: rashes noted maculopapular rash left arm: color (erythema ) maculopapular rash abdomen: color (erythema ) maculopapular rash lower back: color (erythema ) left flank: color (erythema) maculopapular rash left upper leg: color (erythema ) Wounds: no wounds Hair: normal Nails: normal Other: diffuse vesicular like clustered rash consistent with poison rosa dermatitis, B/L arms, legs, and torso Neuro General: alert, awake, oriented x3, CN's II-XI intact bilaterally Speech: speech normal Gait: normal gait Motor: muscle tone normal throughout Extrem General: normal to inspection, normal gait, no edema, no pedal edema Psych Appearance: grossly normal Mental Status: mental status grossly normal Affect: normal affect Attitude: cooperative Thought Process: normal Assessment AND Plan 1. Poison rosa dermatitis L23.7 Plan Patient will be started on a prednisone taper for her poison rosa that she has had for the last 2 months. Patient can continue her hydrocortisone cream as needed. Discussed red flag symptoms and when to seek urgent medical attention. Patient to follow-up as previously scheduled. 2. Obesity (BMI 30.0-34.9) E66.9 Plan BMI 30.1. Patient has concerns of weight gain and exercises daily. He keeps a record of her calorie and exercise regimen. She was previously referred to the why wait program at [facility], which her appointment is scheduled for May 17, 2018. Will discuss further weight management after her appointment with the dietitian. Patient to follow-up as previously scheduled. 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 [place] [address] OFFICE VISIT Date of Service: 05/01/18 MR#: [id number] Acct: [id number] Name: SYDNEEWALIALYSON Rep #: [id number] : 1975 Provider: VIVIANE Womack Age/Sex: 42/F Location: 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 Required: No Is patient in pain?: No Allergies Cephalosporins Allergy (Verified 05/01/18 13:20) Shortness of breath codeine Allergy (Verified 05/01/18 13:20) Shortness of breath metronidazole [From Flagyl] Allergy (Verified 05/01/18 13:20) Swelling Medications Levothyroxine [Synthroid] 125 mcg PO DAILY 07/30/17 [History Confirmed 05/01/18] benzonatate 100 mg capsule 200 mg PO TID PRN #30 cap 12/06/17 [Rx Confirmed 05/01/18] hydroxychloroquine 200 mg tablet 200 mg PO QDAY 12/06/17 [History Confirmed 05/01/18] amitriptyline 25 mg tablet 25 mg PO QHS #30 tab 01/31/18 [Rx Confirmed 05/01/18] bimatoprost 0.03 % drops with applicator, eyelash base 1 applic TOPICAL QHS 01/31/18 [History Confirmed 05/01/18] cetirizine 10 mg tablet 10 mg PO QDAY 01/31/18 [History Confirmed 05/01/18] epinephrine 0.3 mg/0.3 mL injection, auto-injector 0.3 mg IM ONCE 01/31/18 [History Confirmed 05/01/18] frovatriptan 2.5 mg tablet 2.5 mg PO ONCE 01/31/18 [History Confirmed 05/01/18] hydrocortisone 2.5 % topical cream 1 applic TOPICAL BID 01/31/18 [History Confirmed 05/01/18] hydroxyzine HCl 25 mg tablet 25 mg PO TID-QID PRN 01/31/18 [History Confirmed 05/01/18] mometasone 50 mcg/actuation nasal spray 2 spray INTRANASAL QDAY 01/31/18 [History Confirmed 05/01/18] nabumetone 500 mg tablet 500 mg PO BID PRN 01/31/18 [History Confirmed 05/01/18] omeprazole 20 mg capsule,delayed release 20 mg PO BID cap 01/31/18 [History Confirmed 05/01/18] tramadol 50 mg tablet 50 mg PO Q6H 01/31/18 [History Confirmed 05/01/18] pro omega PO 03/23/18 [History Confirmed 05/01/18] ergocalciferol (vitamin D2) 50,000 unit capsule 50,000 unit PO QWEEK #12 cap 04/07/18 [Rx Confirmed 05/01/18] norethindrone (contraceptive) 0.35 mg tablet 0.35 mg PO QDAY #84 tab 05/01/18 [Rx Confirmed 05/01/18] Is last menstrual period known: No Post menopausal: No Patient : No PFSH Medical History GERD (gastroesophageal reflux disease) (Chronic) High cholesterol (Chronic) Goiter (Chronic) Chronic bronchitis (Chronic) Back problem (Chronic) Blood clot in vein (Chronic) Thyroid disease (Chronic) Asthma (Chronic) Frequent headaches (Chronic) Shortness of breath (Chronic) Knee pain (Chronic) Fatigue (Chronic) Arthritis (Chronic) Lupus (Chronic) Surgical History History of (Chronic) History of knee surgery (Chronic) Status post LASIK surgery (Chronic) Family History Father Asthma High cholesterol Mother Hypertension Arthritis Sister Ovarian cancer Social History Smoking Status: Never smoker alcohol intake: never substance use type: does not use caffeine: Yes frequency: daily seatbelt use: always do you feel safe at home: Yes 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 DatName GA/WeeksOutcome [facility] LgAnestheMEel LocaProviderFOB e ht en ia tn Unknown 1999 Jac38 live birC-sectio Male Washingt ob and G th - fuln on arrett l term HPI ANNUAL: Details: ALYSON OLMOS is a 42 year old who presents for new patient annual exam. She has complicated health history. She has past history of infertility and IVF with twins. She is single and not sexually active. She is on oral contraceptives for heavy menses and takes continuous from CYTOLOGY TECHNOLOGIST [place]. Does confirm prior history of DVT in left knee. She has significant struggles with lupus which has caused lung function issues. Last PAP: unsure:3-4 years History of abnormal PAP: LEEP Last mammogram: age 38 History of abnormal mammogram: no ROS Const Constitutional: Reports weight gain; denies fatigue or weight loss Cardio Card: Denies chest pain Resp Resp: Denies cough or shortness of breath with activity GI GI: Denies abdominal pain, constipation, change in stools, vomiting or bloating : Reports as per HPI; denies urinary frequency, pelvic pain, urinary urgency, vaginal discharge, vaginal itching, urinary incontinence or difficulty urinating Exam Const General: cooperative, healthy appearing, no acute distress, well developed Orientation: alert, oriented to person, oriented to place [facility] Head: normal to inspection Neck Neck: normal visual inspection Thyroid: thyroid normal Lymphatic: no lymphadenopathy noted Chest Breast inspection: normal inspection of the breasts, normal inspection of the axillae Breast palpation: normal palpation of the breasts, normal palpation of the axillae, no axillary lymphadenopathy Resp Effort AND Inspection: normal respiratory effort GI Palpation: soft, nontender, no masses Rectal Exam: mass, deferred External Female Exam: normal external appearance, normal appearance of the urethra Urethra: normal appearance of the urethra, normal palpation Speculum Exam - Vagina: normal appearance of the vagina, normal vaginal discharge Speculum Exam - Cervix: normal appearance of the cervix (pap collected) Bimanual Exam- Vagina AND Uterus: normal bimanual exam, uterine size normal, uterine shape normal, uterus non-tender Bimanual Exam- Adnexa, other: normal adnexae, no adnexal masses, adnexae non-tender, pelvic support normal Pelvic Support: normal Neuro General: alert, oriented x3 Psych Affect: normal affect Assessment AND Plan Plan Completed breast and pelvic exam Reviewed diet and exercise Pap thin prep pap with HPV Mammogram ordered Contraception not currently sexually active Stop OCP due to history of DVT. Can consider progesterone only OCP but need to confirm no APL antibodies. She states she is not but she will sign records release for me to confirm. Brief discussion that if can not take progesterone, will consider BTO and then ablation of heavy menses. RTO 1 year, prn with problems Lida Womack CIRCLE BEVELER Orders Orders: Medications New: Discontinued: norethindrone ac-eth estradiol 1.5-30 mg-mcg Discontinued Reason: Orde1 tab PO DAILY r Changed Coding Level of Care Code Off vis,new,prev 40-64yrs 05/01/18 3904 <Electronically signed by Lida Womack VAULT SERVICE MECHANIC-C> Date Lida Womack VAULT SERVICE MECHANIC-C Cosigner Signature: Date (if applicable) CC: PAP IG HPV APTIMA Collected: 05/01/2018 Status: F Source: VI 16/18,45 1:20 PM [facility] REPOSITORY Order Comment: CYTOLOGY INFORMATION: - CLINICAL INFORMATION: ANNUAL - DATE LMP/MENOPAUSE: - COLLECTION VIAL: Thin Prep Vial - CYTOLOGY TECHNOLOGIST SOURCE: CERVICAL - COLLECTION TECHNIQUE: BRUSH/SPATULA Specimen Comment: [id number] Specimen Comment: No. of containers..01 ThinPrep Vial TYPE CODE TESTS RESULT OUT OF RANGE REFERENCE UNITS LAB L7400.0800 . Normal DIAGN Comment Result Comment: NEGATIVE FOR INTRAEPITHELIAL LESION AND MALIGNANCY. LAB L7400.0900 . Normal ADEQ Comment Result Comment: Satisfactory for evaluation. Endocervical and/or squamous metaplastic cells (endocervical component) are present. LAB L7400.1400 . Normal PERFORM Comment Result Comment: Fallon Prater, Title I Assistant (ASCP) LAB L7400.2575 . Normal TEST METHOD Comment Result Comment: This liquid based ThinPrep(R) pap test was screened with the use of an image guided system. LAB L7400.2600 . Normal . COMM LAB L7400.2700 . Normal PAPSMR Comment Result Comment: The Pap smear is a screening test designed to aid in the detection of premalignant and malignant conditions of the uterine cervix. It is not a diagnostic procedure and should not be used as the sole means of detecting cervical cancer. Both false-positive and false-negative reports do occur. LAB L7400.2760 Negative High HPV APTIMA, HR Positive Result Comment: This test detects fourteen high-risk HPV types (16/18/31/33/35/39/45/ 51/52/56/58/59/66/68) without differentiation. LAB L7400.2940 Negative Normal HPV Genotype Negative 16 LAB L7400.2945 Negative Normal HPV Kareen 18,45 Negative Result Comment: Performed at: [address] [id number] Power Plant Inspector: Betsy Villanueva MD, Phone: [phone] Performed at: =[facility] [place], [place] [id number] Power Plant Inspector: Betsy Villanueva MD, Phone: [phone] Performed By: #### L7400.0280 #### [facility] (refer to report for specific site) refer to report for address and phone number IRON BINDING Collected: 04/21/2018 Status: F Source: [facility],TOTAL 1:59 PM [facility] REPOSITORY TYPE CODE TESTS RESULT OUT OF RANGE REFERENCE UNITS LAB L503.6075 250-450 ug/dL Normal TIBC 383 Performed By: #### L503.6075, L503.6150, L503.6550 #### [facility] [address] [place], [place], [id number] IRON Collected: 04/21/2018 Status: F Source: [place] 1:59 PM [facility] REPOSITORY TYPE CODE TESTS RESULT OUT OF RANGE REFERENCE UNITS LAB L503.6150 50-170 ug/dL Normal IRON 86 Performed By: #### L503.6075, L503.6150, L503.6550 #### [facility] [address] [place], [place], [address] FERRITIN Collected: 04/21/2018 Status: F Source: [place] 1:59 PM [facility] REPOSITORY TYPE CODE TESTS RESULT OUT OF RANGE REFERENCE UNITS LAB L503.6550 8-252 ng/mL Normal FERRITIN 111 Performed By: #### L503.6075, L503.6150, L503.6550 #### [facility] [address] [place], [place], [id number] OBSOLETE Observed: 04/20/2018 Status: COMPLETED Source: [place] 12:00 AM [facility] OTHER [place] REPOSITORY Refill (INTBMG) ALYSON OLMOS ([id number]) 1975 F Date Time Provider Department 04/20/18 THEO MCNEAL During your visit today, we recorded the following information about you: Maryanne Narayan CMA 04/21/2018 11:14 AM Signed Pharmacy faxed requesting the following refill. Patient's last appointment: with Theo Mcneal MD was 03/21/2017, no upcoming appointments. Pending Prescriptions Disp Refills TOPIRAMATE 50 MG TABLET 180 tablet 1 Sig: take 2 tablets by mouth twice a day MARIA DEL CARMEN: No Patient Phone numbers: [phone] (home) Request is for script(s) to be escript to pharmacy. Maryanne Narayan CMA Allergies As of Date: 04/20/2018 Noted Allergy Reaction INFLUENZA VIRUS VACCINES 02/06/2014 4 - Hives CEPHALOSPORINS 09/03/2010 10 - Anaphylaxis CODEINE 09/03/2010 10 - Anaphylaxis NITRATES 09/03/2016 14 - Other: See Comments Comments: Migraine LAZO and sick to stomach - SULFATES (SULFATE SALT) 09/03/2016 14 - Other: See Comments Comments: Migraine LAZO and feels horrible, sick to stomach Date Reviewed: 10/17/2017 Reviewed by: Joi Bettencourt Ma - Fully Assessed Reason for Visit: Refill Request [94] Order(s):topiramate (TOPAMAX) 50 mg tablettake 2 tablets by mouth twice a dayDisp: 60 tabletRfl: 2 Prescriptions as of 04/20/2018 Sig: TOPIRAMATE 50 MG TABLET take 2 tablets by mouth twice* MICROGESTIN .02/08 (21) 1.5 M* take 1 tablet by mouth once d* OMEPRAZOLE 20 MG CAPSULE,NACHO* take 1 capsule by mouth twice* SYNTHROID 125 MCG TABLET take 1 tablet by mouth once d* MOMETASONE 50 MCG/ACTUATION N* Use 2 Sprays in each nostril * NABUMETONE 500 MG TABLET take 1 to 2 tablets by mouth * ERGOCALCIFEROL (VITAMIN D2) 5* Take 1 capsule by mouth once * HYDROXYCHLOROQUINE 200 MG TAB* Take 1 tablet by mouth twice * HYDROCORTISONE 2.5 % TOPICAL * Apply 1 application to affect* ALBUTEROL SULFATE HFA 90 MCG/* Inhale 2 Puffs as instructed * FROVATRIPTAN 2.5 MG TABLET Take 1 tablet by mouth as nee* FROVATRIPTAN 2.5 MG TABLET Take one tablet at onset of h* PHENTERMINE 37.5 MG CAPSULE LATANOPROST 0.005 % EYE DROPS PREDNISONE 10 MG TABLET Take 1 tablet by mouth once d* EPINEPHRINE 0.3 MG/0.3 ML INJ* Inject 0.3 mL intramuscularly* HYDROXYZINE HCL 25 MG TABLET Take 1 tablet by mouth every * CETIRIZINE 10 MG TABLET Take 1 tablet by mouth once d* FAMOTIDINE 40 MG TABLET Take 1 tablet by mouth once d* TRAMADOL 50 MG TABLET Take 1 tablet by mouth every * BIMATOPROST 0.03 % DROPS WITH* Place one drop on applicator * AMLODIPINE 2.5 MG TABLET Take 1 tablet by mouth once d* FLUCONAZOLE 150 MG TABLET Take one dose as needed, may * BENZONATATE 100 MG CAPSULE Take 2 capsules by mouth thre* Problem List As Of Date 04/20/2018 Noted Resolved Bronchitis [J40] INVALID FOR*10/17/2014 Lupus [L93.0] INVALID FOR* Hypothyroid [E03.9] INVALID FOR* Depression [F32.9] INVALID FOR* Immune deficiency disorder (HCC) [D84.9] More... Raynaud's disease without gangrene [I73.00] INVALID FOR* Prescriptions ordered this encounter Disp Refills Start End TOPIRAMATE 50 MG TABLET 60 t* 2 04/21/2018 Sig: take 2 tablets by mouth twice a day Medications Discontinued During This Encounter topiramate (TOPAMAX) 50 mg tablet 180 * 3 10/24/2017 04/21/2018 Route: ORAL Sig: Take 2 tablets by mouth twice daily. Disc: Reason for discontinue is not on file. Encounter Status:Closed by THEO MCNEAL MD on 04/21/18 INTERNAL MEDICINE Observed: 03/28/2018 Status: F Source: VI OFFICE VISIT 10:04 AM [facility] [place] [address] [place] [address] OFFICE VISIT Date of Service: 03/23/18 MR#: [id number] Acct: [id number] Name: ALYSON OLMOS Rep #: [id number] : 1975 Provider: Keven Gutierrez NP Age/Sex: 42/F Location[facility] Status: Signed Intake Vital Signs03/23/18 Height 5 ft 5 in Intake Visit Reasons: weight loss recommendations Chief Complaint: weight gain Is patient in pain?: Yes (Rt. knee) Allergies Cephalosporins Allergy (Verified 01/31/18 15:19) Shortness of breath codeine Allergy (Verified 01/31/18 15:19) Shortness of breath metronidazole [From Flagyl] Allergy (Verified 01/31/18 15:19) Swelling Medications Levothyroxine [Synthroid] 125 mcg PO DAILY 07/30/17 [History Confirmed 01/31/18] benzonatate 100 mg capsule 200 mg PO TID PRN #30 cap 12/06/17 [Rx Confirmed 01/31/18] hydroxychloroquine 200 mg tablet 200 mg PO QDAY 12/06/17 [History Confirmed 01/31/18] amitriptyline 25 mg tablet 25 mg PO QHS #30 tab 01/31/18 [Rx Confirmed 01/31/18] bimatoprost 0.03 % drops with applicator, eyelash base 1 applic TOPICAL QHS 01/31/18 [History Confirmed 01/31/18] cetirizine 10 mg tablet 10 mg PO QDAY 01/31/18 [History Confirmed 01/31/18] epinephrine 0.3 mg/0.3 mL injection, auto-injector 0.3 mg IM ONCE 01/31/18 [History Confirmed 01/31/18] ergocalciferol (vitamin D2) 50,000 unit capsule 50,000 unit PO QWEEK 01/31/18 [History Confirmed 01/31/18] frovatriptan 2.5 mg tablet 2.5 mg PO ONCE 01/31/18 [History Confirmed 01/31/18] hydrocortisone 2.5 % topical cream 1 applic TOPICAL BID 01/31/18 [History Confirmed 01/31/18] hydroxyzine HCl 25 mg tablet 25 mg PO TID-QID PRN 01/31/18 [History Confirmed 01/31/18] mometasone 50 mcg/actuation nasal spray 2 spray INTRANASAL QDAY 01/31/18 [History Confirmed 01/31/18] nabumetone 500 mg tablet 500 mg PO BID PRN 01/31/18 [History Confirmed 01/31/18] omeprazole 20 mg capsule,delayed release 20 mg PO BID cap 01/31/18 [History Confirmed 01/31/18] topiramate 50 mg tablet 100 mg PO BID tab 01/31/18 [History Confirmed 01/31/18] tramadol 50 mg tablet 50 mg PO Q6H 01/31/18 [History Confirmed 01/31/18] norethindrone acetate-ethinyl estradiol 1.5 mg-30 mcg tablet 1 tab PO DAILY #63 tab 03/17/18 [Rx] pro omega PO 03/23/18 [History Confirmed 03/23/18] Is last menstrual period known: Yes PFSH Medical History GERD (gastroesophageal reflux disease) (Chronic) High cholesterol (Chronic) Goiter (Chronic) Chronic bronchitis (Chronic) Back problem (Chronic) Blood clot in vein (Chronic) Thyroid disease (Chronic) Asthma (Chronic) Frequent headaches (Chronic) Shortness of breath (Chronic) Knee pain (Chronic) Fatigue (Chronic) Arthritis (Chronic) Lupus (Chronic) Surgical History History of (Chronic) History of knee surgery (Chronic) Status post LASIK surgery (Chronic) Family History Father Asthma High cholesterol Mother Hypertension Arthritis Sister Ovarian cancer Social History Smoking Status: Never smoker alcohol intake: never substance use type: does not use HPI HPI Chief Complaint: weight gain Details: ALYSON OLMOS, is a 42 F who presents to the office today for an acute visit of weight gain. She notes that she has gained 30 pounds over the last year. She has a past medical history as listed above. The patient does state she is concerned for a weight gain of 30 pounds in the last year and is concerned because she has an upcoming right knee surgery by Dr. Watters and is not going to be able to be as active and wonders if there is a pharmacologic treatment that is available for her to utilize for weight loss. She has tried Adipex in the past with good outcomes. She does have a history of hypothyroidism and has not had her thyroid studies done recently. She notes that she tries to be healthy and that she bikes 20 miles per day on average. However she is most concerned because with her upcoming knee surgery she will not be able to be as active. She has not tried a food diary at this time and she denies any other acute concerns at this time as well. The patient otherwise denies any fever, chills, nausea, vomiting, shortness of breath, chest pain or pressure, palpitations, orthopnea, lower extremity edema, syncope or presyncopal episodes. ROS Const Constitutional: Positive for weight change (increase) and change in appetite; no body ache, chills, fatigue, sleep problems, fever(s), snoring, weakness, frequent falls, headache(s) or excessive sweating Eyes Eyes: No change in vision, eye pain, light sensitivity or blurry vision ENT ENT: No headache(s), abnormal hearing, ear pain, tinnitus, nasal congestion, sore throat or neck pain Resp Respiratory: No snoring, cough, shortness of breath or wheezing Cardio Cardiology: Positive for generalized swelling (ankles); no excessive sweating, chest pain at rest, chest pain with exertion, shortness of breath, dyspnea on exertion, palpitations, orthopnea or lightheadedness Gastro GI: No abdominal pain, change in bowel habits, constipation, diarrhea, vomiting, nausea/dyspepsia or cramping Genitourinary-Female: No burning urination, painful urination, urinary incontinence, urinary frequency, abnormal vaginal bleeding, pelvic pain or other Musc Musculoskeletal: No neck pain, abnormal walking, joint pain, back pain, limited range of motion, numbness, tingling or muscle weakness Skin Skin: No redness, dry skin, itching, lesions, wounds or rash Neuro Neurology: No weakness, frequent falls, headache(s), abnormal hearing, abnormal walking, numbness, tingling, abnormal speech, dizziness or memory loss Psych Psychiatric: Positive for change in appetite, No memory loss, No anxiety, No depression, No Thoughts of harming yourself/Others Endo Endocrine: No fatigue, excessive sweating, cold intolerance, increased thirst/drinking, heat intolerance, flushing or increased hunger Aller/Imm Allergy/Immunologic: No wheezing, itchy eyes, hives or seasonal allergy symptoms Tolu/Lymp Hematologic/Lymphatic: No easy bleeding, easy bruising or enlarged lymph nodes Exam Const General: cooperative, comfortable, no acute distress Nutritional Appearance: average body habitus, well nourished, obese Orientation: alert, oriented x3 Limitations: mental status not altered Resp Effort AND Inspection: normal respiratory effort, able to speak in complete sentences, normal respiratory pattern, symmetric chest movement, no audible wheezes, no cough Auscultation: Bilateral: Clear to Auscultation Cardio Palpation: normal PMI Rate: regular rate Heart Sounds: S1 normal, S2 normal, normal S1 and S2, no click, no gallops, no murmurs, no rubs Musc Musculoskeletal: No joint tenderness, decreased ROM or muscle weakness Skin General: no rashes or lesions noted, elasticity normal, turgor normal Lesions: no lesions Rashes: no rashes Neuro General: alert, awake, oriented x3, CN's II-XI intact bilaterally Speech: speech normal Gait: normal gait Motor: muscle tone normal throughout Extrem General: normal to inspection, normal gait, no edema, no pedal edema Psych Appearance: grossly normal Mental Status: mental status grossly normal Affect: normal affect Attitude: cooperative Thought Process: normal Assessment AND Plan Problems 1. Obesity (BMI 30.0-34.9) E66.9 2. Weight gain R63.5 3. Hypothyroidism E03.9 Plan The patient does have complaints of 30 pound weight gain over the last year and is concerned because she will not be able to exercise as much with her upcoming surgery. Did discuss with her that Adipex is not an appropriate option at this time. Given her history of hypothyroidism, will recheck a TSH and T4 and make adjustments if necessary. Will refer her to the why wait program. Discussed keeping a food diary and did discuss that there are better long-term pharmacologic treatments that may need to be considered in the future after she has tried conservative therapy at this time. She denies any acute complaints at this time. She will follow-up in 3 months or sooner if needed. Armani disclaimer Orders Orders: Referrals: Plan Detail Follow Up 3 months or sooner if needed Coding Level of Care Code Off vis,est,level 3 Diagnoses Obesity (BMI 30.0-34.9) E66.9 Weight gain R63.5 Hypothyroidism E03.9 03/28/18 1004 <Electronically signed by Keven GIRON> Date Keven GIRON Cosigner Signature: Date (if applicable) CC: THYROID STIM HORMONE Collected: 03/23/2018 Status: F Source: [place] (TSH) 10:53 AM [facility] REPOSITORY TYPE CODE TESTS RESULT OUT OF RANGE REFERENCE UNITS LAB L501.9520 0.358-3.74 uIU/mL Normal TSH 2.04 Performed By: #### L501.9520, L506.0400 #### [facility] [address] [place], [place], [address] T4 FREE DIRECT Collected: 03/23/2018 Status: F Source: VI 10:53 AM [facility] REPOSITORY TYPE CODE TESTS RESULT OUT OF RANGE REFERENCE UNITS LAB L506.0400 0.76-1.46 ng/dL Normal T4 FREE 0.91 DIRECT Performed By: #### L501.9520, L506.0400 #### [facility] [address] [place], [address] OBSOLETE Observed: 03/15/2018 Status: COMPLETED Source: [place] 12:00 AM [facility] REPOSITORY Refill (INTBMG) ALYSON OLMOS ([id number]) 1975 F Date Time Provider Department 03/15/18 THEO MCNEAL During your visit today, we recorded the following information about you: Candace Spence CMA 03/16/2018 11:49 AM Signed Pharmacy faxed requesting the following refill. Patient's last appointment: with Theo Mcneal MD was 12/28/2016 Pending Prescriptions Disp Refills MICROGESTIN 1.5/30 (21) 1.5 MG-30 MCG TABLET 63 tablet 1 Sig: take 1 tablet by mouth once daily MARIA DEL CARMEN: No Patient Phone numbers: [phone] (home) Request is for script(s) to be escript to pharmacy. Candace Spence, [employer] Allergies As of Date: 03/15/2018 Noted Allergy Reaction INFLUENZA VIRUS VACCINES 02/06/2014 4 - Hives CEPHALOSPORINS 09/03/2010 10 - Anaphylaxis CODEINE 09/03/2010 10 - Anaphylaxis NITRATES 09/03/2016 14 - Other: See Comments Comments: Migraine LAZO and sick to stomach - SULFATES (SULFATE SALT) 09/03/2016 14 - Other: See Comments Comments: Migraine LAZO and feels horrible, sick to stomach Date Reviewed: 10/17/2017 Reviewed by: Joi Bettencourt Ma - Fully Assessed Reason for Visit: Refill Request [94] Order(s):MICROGESTIN 1.5/30 1.5-30 mg-mcg tabtake 1 tablet by mouth once dailyDisp: 63 tabletRfl: 1 Prescriptions as of 03/15/2018 Sig: MICROGESTIN 1.5/30 (21) 1.5 M* take 1 tablet by mouth once d* OMEPRAZOLE 20 MG CAPSULE,NACHO* take 1 capsule by mouth twice* SYNTHROID 125 MCG TABLET take 1 tablet by mouth once d* MOMETASONE 50 MCG/ACTUATION N* Use 2 Sprays in each nostril * NABUMETONE 500 MG TABLET take 1 to 2 tablets by mouth * ERGOCALCIFEROL (VITAMIN D2) 5* Take 1 capsule by mouth once * HYDROXYCHLOROQUINE 200 MG TAB* Take 1 tablet by mouth twice * TOPIRAMATE 50 MG TABLET Take 2 tablets by mouth twice* HYDROCORTISONE 2.5 % TOPICAL * Apply 1 application to affect* ALBUTEROL SULFATE HFA 90 MCG/* Inhale 2 Puffs as instructed * FROVATRIPTAN 2.5 MG TABLET Take 1 tablet by mouth as nee* FROVATRIPTAN 2.5 MG TABLET Take one tablet at onset of h* PHENTERMINE 37.5 MG CAPSULE LATANOPROST 0.005 % EYE DROPS PREDNISONE 10 MG TABLET Take 1 tablet by mouth once d* EPINEPHRINE 0.3 MG/0.3 ML INJ* Inject 0.3 mL intramuscularly* HYDROXYZINE HCL 25 MG TABLET Take 1 tablet by mouth every * CETIRIZINE 10 MG TABLET Take 1 tablet by mouth once d* FAMOTIDINE 40 MG TABLET Take 1 tablet by mouth once d* TRAMADOL 50 MG TABLET Take 1 tablet by mouth every * BIMATOPROST 0.03 % DROPS WITH* Place one drop on applicator * AMLODIPINE 2.5 MG TABLET Take 1 tablet by mouth once d* FLUCONAZOLE 150 MG TABLET Take one dose as needed, january * BENZONATATE 100 MG CAPSULE Take 2 capsules by mouth thre* Problem List As Of Date 03/15/2018 Noted Resolved Bronchitis [J40] INVALID FOR*10/17/2014 Lupus [L93.0] INVALID FOR* Hypothyroid [E03.9] INVALID FOR* Depression [F32.9] INVALID FOR* Immune deficiency disorder (HCC) [D84.9] More... Raynaud's disease without gangrene [I73.00] INVALID FOR* Prescriptions ordered this encounter Disp Refills Start End MICROGESTIN 1.5/30 (21) 1.5 MG-30 MC* 63 t* 1 03/16/2018 Route: ORAL Sig: take 1 tablet by mouth once daily Medications Discontinued During This Encounter Norethindrone Acet-Ethinyl Est (NICO* 63 t* 1 11/21/2017 03/16/2018 Route: ORAL Sig: Take 1 tablet by mouth once daily. Disc: Auto DC at discharge. Encounter Status:Closed by THEO MCNEAL MD on 03/16/18 OBSOLETE Observed: 03/13/2018 Status: COMPLETED Source: [place] 12:00 AM [facility] REPOSITORY Refill (INTBMG) ALYSON OLMOS ([id number]) 1975 F Date Time Provider Department 03/13/18 THEO MCNEAL During your visit today, we recorded the following information about you: Candace Spence CMA 03/13/2018 10:36 AM Signed Pharmacy faxed requesting the following refill. Patient's last appointment: with Theo Mcneal MD was 03/21/2017 Pending Prescriptions Disp Refills OMEPRAZOLE 20 MG CAPSULE,DELAYED RELEASE 30 capsule 0 Sig: take 1 capsule by mouth twice a day MARIA DEL CARMEN: No/patient needs an appointment before any more rerills SYNTHROID 125 MCG TABLET 30 tablet 0 Sig: take 1 tablet by mouth once daily MARIA DEL CARMEN: No/ Patient needs an appointment before any more refills. Patient Phone numbers: [phone] (home) Request is for script(s) to be escript to pharmacy. Candace Spence CMA Allergies As of Date: 03/13/2018 Noted Allergy Reaction INFLUENZA VIRUS VACCINES 02/06/2014 4 - Hives CEPHALOSPORINS 09/03/2010 10 - Anaphylaxis CODEINE 09/03/2010 10 - Anaphylaxis NITRATES 09/03/2016 14 - Other: See Comments Comments: Migraine LAZO and sick to stomach - SULFATES (SULFATE SALT) 09/03/2016 14 - Other: See Comments Comments: Migraine LAZO and feels horrible, sick to stomach Date Reviewed: 10/17/2017 Reviewed by: Joi Bettencourt Ma - Fully Assessed Reason for Visit: Refill Request [94] Order(s):omeprazole (PRILOSEC) 20 mg capsuletake 1 capsule by mouth twice a dayDisp: 180 capsuleRfl: 2 SYNTHROID 125 mcg tablettake 1 tablet by mouth once dailyDisp: 90 tabletRfl: 2 Prescriptions as of 03/13/2018 Sig: OMEPRAZOLE 20 MG CAPSULE,NACHO* take 1 capsule by mouth twice* SYNTHROID 125 MCG TABLET take 1 tablet by mouth once d* MOMETASONE 50 MCG/ACTUATION N* Use 2 Sprays in each nostril * NABUMETONE 500 MG TABLET take 1 to 2 tablets by mouth * ERGOCALCIFEROL (VITAMIN D2) 5* Take 1 capsule by mouth once * NORETHINDRONE ACETATE-ETHINYL* Take 1 tablet by mouth once d* HYDROXYCHLOROQUINE 200 MG TAB* Take 1 tablet by mouth twice * TOPIRAMATE 50 MG TABLET Take 2 tablets by mouth twice* HYDROCORTISONE 2.5 % TOPICAL * Apply 1 application to affect* ALBUTEROL SULFATE HFA 90 MCG/* Inhale 2 Puffs as instructed * FROVATRIPTAN 2.5 MG TABLET Take 1 tablet by mouth as nee* FROVATRIPTAN 2.5 MG TABLET Take one tablet at onset of h* PHENTERMINE 37.5 MG CAPSULE LATANOPROST 0.005 % EYE DROPS PREDNISONE 10 MG TABLET Take 1 tablet by mouth once d* EPINEPHRINE 0.3 MG/0.3 ML INJ* Inject 0.3 mL intramuscularly* HYDROXYZINE HCL 25 MG TABLET Take 1 tablet by mouth every * CETIRIZINE 10 MG TABLET Take 1 tablet by mouth once d* FAMOTIDINE 40 MG TABLET Take 1 tablet by mouth once d* TRAMADOL 50 MG TABLET Take 1 tablet by mouth every * BIMATOPROST 0.03 % DROPS WITH* Place one drop on applicator * AMLODIPINE 2.5 MG TABLET Take 1 tablet by mouth once d* FLUCONAZOLE 150 MG TABLET Take one dose as needed, january * BENZONATATE 100 MG CAPSULE Take 2 capsules by mouth thre* Problem List As Of Date 03/13/2018 Noted Resolved Bronchitis [J40] INVALID FOR*10/17/2014 Lupus [L93.0] INVALID FOR* Hypothyroid [E03.9] INVALID FOR* Depression [F32.9] INVALID FOR* Immune deficiency disorder (HCC) [D84.9] More... Raynaud's disease without gangrene [I73.00] INVALID FOR* Prescriptions ordered this encounter Disp Refills Start End OMEPRAZOLE 20 MG CAPSULE,DELAYED REL* 180 * 2 03/13/2018 Sig: take 1 capsule by mouth twice a day SYNTHROID 125 MCG TABLET 90 t* 2 03/13/2018 Route: ORAL Sig: take 1 tablet by mouth once daily Medications Discontinued During This Encounter omeprazole (PRILOSEC) 20 mg capsule 180 * 2 06/14/2017 03/13/2018 Route: ORAL Sig: Take 1 capsule by mouth twice daily. Disc: Reason for discontinue is not on file. SYNTHROID 125 mcg tablet 90 t* 2 06/14/2017 03/13/2018 Route: ORAL Sig: Take 1 tablet by mouth once daily. Disc: Reason for discontinue is not on file. Encounter Status:Closed by THEO MCNEAL MD on 03/13/18 OBSOLETE Observed: 02/06/2018 Status: COMPLETED Source: [place] 12:00 AM [facility] REPOSITORY Refill (INTBMG) APJARRETTALYSON LU ([id number]) 1975 F Date Time Provider Department 02/06/18 THEO MCNEAL During your visit today, we recorded the following information about you: Dilcia Faria 02/07/2018 11:19 AM Signed Patient faxed requesting the following refill. Patient's last appointment: with Theo Mcneal MD was 03-21-2017. Nothing scheduled Pending Prescriptions Disp Refills NABUMETONE 500 MG TABLET 60 tablet 1 Sig: take 1 to 2 tablets by mouth twice a day if needed for pain with food MARIA DEL CARMEN: Yes Patient Phone numbers: [phone] (home) Request is for script(s) to be escript to pharmacy. Dilcia Faria Allergies As of Date: 02/06/2018 Noted Allergy Reaction INFLUENZA VIRUS VACCINES 02/06/2014 4 - Hives CEPHALOSPORINS 09/03/2010 10 - Anaphylaxis CODEINE 09/03/2010 10 - Anaphylaxis NITRATES 09/03/2016 14 - Other: See Comments Comments: Migraine LAZO and sick to stomach - SULFATES (SULFATE SALT) 09/03/2016 14 - Other: See Comments Comments: Migraine LAZO and feels horrible, sick to stomach Date Reviewed: 10/17/2017 Reviewed by: Joi Bettencourt Ma - Fully Assessed Reason for Visit: Refill Request [94] Cmt: relafen Reason For Visit History Recorded Order(s):nabumetone (RELAFEN) 500 mg tablettake 1 to 2 tablets by mouth twice a day if needed for pain with foodDisp: 60 tabletRfl: 1 Prescriptions as of 02/06/2018 Sig: NABUMETONE 500 MG TABLET take 1 to 2 tablets by mouth * ERGOCALCIFEROL (VITAMIN D2) 5* Take 1 capsule by mouth once * NORETHINDRONE ACETATE-ETHINYL* Take 1 tablet by mouth once d* HYDROXYCHLOROQUINE 200 MG TAB* Take 1 tablet by mouth twice * TOPIRAMATE 50 MG TABLET Take 2 tablets by mouth twice* HYDROCORTISONE 2.5 % TOPICAL * Apply 1 application to affect* ALBUTEROL SULFATE HFA 90 MCG/* Inhale 2 Puffs as instructed * FROVATRIPTAN 2.5 MG TABLET Take 1 tablet by mouth as nee* FROVATRIPTAN 2.5 MG TABLET Take one tablet at onset of h* OMEPRAZOLE 20 MG CAPSULE,NACHO* Take 1 capsule by mouth twice* SYNTHROID 125 MCG TABLET Take 1 tablet by mouth once d* PHENTERMINE 37.5 MG CAPSULE LATANOPROST 0.005 % EYE DROPS PREDNISONE 10 MG TABLET Take 1 tablet by mouth once d* MOMETASONE 50 MCG/ACTUATION N* Use 2 Sprays in each nostril * EPINEPHRINE 0.3 MG/0.3 ML INJ* Inject 0.3 mL intramuscularly* HYDROXYZINE HCL 25 MG TABLET Take 1 tablet by mouth every * CETIRIZINE 10 MG TABLET Take 1 tablet by mouth once d* FAMOTIDINE 40 MG TABLET Take 1 tablet by mouth once d* TRAMADOL 50 MG TABLET Take 1 tablet by mouth every * BIMATOPROST 0.03 % DROPS WITH* Place one drop on applicator * AMLODIPINE 2.5 MG TABLET Take 1 tablet by mouth once d* FLUCONAZOLE 150 MG TABLET Take one dose as needed, may * BENZONATATE 100 MG CAPSULE Take 2 capsules by mouth thre* Problem List As Of Date 02/06/2018 Noted Resolved Bronchitis [J40] INVALID FOR*10/17/2014 Lupus [L93.0] INVALID FOR* Hypothyroid [E03.9] INVALID FOR* Depression [F32.9] INVALID FOR* Immune deficiency disorder (HCC) [D84.9] More... Raynaud's disease without gangrene [I73.00] INVALID FOR* Prescriptions ordered this encounter Disp Refills Start End NABUMETONE 500 MG TABLET 60 t* 1 02/07/2018 Sig: take 1 to 2 tablets by mouth twice a day if needed for pain with food Medications Discontinued During This Encounter nabumetone (RELAFEN) 500 mg tablet 60 t* 1 11/28/2017 02/07/2018 Route: ORAL Sig: Take 1-2 tablets by mouth twice daily as needed for Pain. Take with food Disc: Reason for discontinue is not on file. Encounter Status:Closed by THEO MCNEAL MD on 02/07/18 INTERNAL MEDICINE Observed: 01/31/2018 Status: F Source: VI OFFICE VISIT 4:48 PM [facility] [address] [place] [address] OFFICE VISIT Date of Service: 01/31/18 MR#: [id number] Acct: [id number] Name: LAYSON OLMOS Rep #: [id number] : 1975 Provider: Mojgan Cintron MD Age/Sex: 42/F Location: [facility] Status: Signed Intake Vital Signs01/31/18 Height 5 ft 5 in 01/31/18 Weight: 170 lb 01/31/18 Body Mass Index (BMI) 28.3 01/31/18 Blood Pressure 115/76 Intake Visit Reasons: EST PCP Chief Complaint: Est PCP - Is patient in pain?: Yes (Rt knee) Pain scale (1-10): 5 Allergies Cephalosporins Allergy (Verified 01/31/18 15:19) Shortness of breath codeine Allergy (Verified 01/31/18 15:19) Shortness of breath metronidazole [From Flagyl] Allergy (Verified 01/31/18 15:19) Swelling Medications Levothyroxine [Synthroid] 125 mcg PO DAILY 07/30/17 [History Confirmed 01/31/18] Norethindrone AC-Eth Estradiol [Junel 1.5 mg-30 Mcg Tablet] 1 tab PO DAILY 07/30/17 [History Confirmed 01/31/18] benzonatate 100 mg capsule 200 mg PO TID PRN #30 cap 12/06/17 [Rx Confirmed 01/31/18] hydroxychloroquine 200 mg tablet 200 mg PO QDAY 12/06/17 [History Confirmed 01/31/18] albuterol sulfate HFA 90 mcg/actuation aerosol inhaler 2 puff INHALATION Q4H PRN 01/31/18 [History Confirmed 01/31/18] amitriptyline 25 mg tablet 25 mg PO QHS #30 tab 01/31/18 [Rx Confirmed 01/31/18] bimatoprost 0.03 % drops with applicator, eyelash base 1 applic TOPICAL QHS 01/31/18 [History Confirmed 01/31/18] cetirizine 10 mg tablet 10 mg PO QDAY 01/31/18 [History Confirmed 01/31/18] epinephrine 0.3 mg/0.3 mL injection, auto-injector 0.3 mg IM ONCE 01/31/18 [History Confirmed 01/31/18] ergocalciferol (vitamin D2) 50,000 unit capsule 50,000 unit PO QWEEK 01/31/18 [History Confirmed 01/31/18] frovatriptan 2.5 mg tablet 2.5 mg PO ONCE 01/31/18 [History Confirmed 01/31/18] hydrocortisone 2.5 % topical cream 1 applic TOPICAL BID 01/31/18 [History Confirmed 01/31/18] hydroxyzine HCl 25 mg tablet 25 mg PO TID-QID PRN 01/31/18 [History Confirmed 01/31/18] mometasone 50 mcg/actuation nasal spray 2 spray INTRANASAL QDAY 01/31/18 [History Confirmed 01/31/18] nabumetone 500 mg tablet 500 mg PO BID PRN 01/31/18 [History Confirmed 01/31/18] omeprazole 20 mg capsule,delayed release 20 mg PO BID cap 01/31/18 [History Confirmed 01/31/18] topiramate 50 mg tablet 100 mg PO BID tab 01/31/18 [History Confirmed 01/31/18] tramadol 50 mg tablet 50 mg PO Q6H 01/31/18 [History Confirmed 01/31/18] PFSH Medical History GERD (gastroesophageal reflux disease) (Chronic) High cholesterol (Chronic) Goiter (Chronic) Chronic bronchitis (Chronic) Back problem (Chronic) Blood clot in vein (Chronic) Thyroid disease (Chronic) Asthma (Chronic) Frequent headaches (Chronic) Shortness of breath (Chronic) Knee pain (Chronic) Fatigue (Chronic) Arthritis (Chronic) Lupus (Chronic) Surgical History History of (Chronic) History of knee surgery (Chronic) Status post LASIK surgery (Chronic) Family History Father Asthma High cholesterol Mother Hypertension Arthritis Sister Ovarian cancer Social History Smoking Status: Never smoker alcohol intake: never substance use type: does not use HPI HPI Chief Complaint: Est PCP - Details: ALYSON OLMOS, is a 42yo F who presents to the office today to establish care. She has a complex PMH. She however is most concerned about her chronic migraine and states that she has noted some worsening lately with almost daily headaches. She is currently on Topiramate for prophylaxis and takes a triptan as needed. She also reports recent onset of vaginal bleeding after being amenorrheic for 6 years. ROS Const Constitutional: Positive for headache(s); no chills, fatigue, fever(s), frequent falls, malaise, weakness, sleep problems or change in appetite Eyes Eyes: No blurry vision, change in vision, double vision, discharge or visual disturbances ENT ENT: Positive for headache(s); no abnormal hearing, ear pain, ear pressure, tinnitus or dizziness/vertigo Resp Respiratory: No cough, shortness of breath or wheezing Cardio Cardiology: No chest pain at rest, chest pain with exertion, shortness of breath, dyspnea on exertion, generalized swelling, irregular heart rhythm, lightheadedness, orthopnea, fast heart rate or palpitations Gastro GI: No abdominal pain, change in bowel habits, constipation, diarrhea, nausea/dyspepsia or vomiting Genitourinary-Female: Positive for other (Spotting x 3 weeks); no difficulty urinating, burning urination, painful urination, urinary incontinence, urinary frequency, urinary urgency, urinary hesitancy, urinary retention, Frequent nighttime urination/ nocturia, sexual problems, genital lesions, abnormal vaginal bleeding, pelvic pain, vaginal dryness, vaginal odor or Vaginal Itching Musc Musculoskeletal: Positive for joint pain (Rt Knee); no numbness or tingling Skin Skin: No change in skin color, itching, rash or wounds Breast Breast: No breast lump or breast pain Neuro Neurology: Positive for headache(s); no frequent falls, weakness, abnormal hearing, unsteady gait/balance, dizziness, loss of vision, memory loss, numbness, tingling or visual disturbances Psych Psychiatric: No memory loss, No anxiety, No change in appetite, No depression, No Thoughts of harming yourself/Others Endo Endocrine: No fatigue, heat intolerance, increased thirst/drinking, increased hunger or increased urination Aller/Imm Allergy/Immunologic: No wheezing, itchy eyes or seasonal allergy symptoms Tolu/Lymp Hematologic/Lymphatic: No easy bleeding, easy bruising or enlarged lymph nodes Exam Const General: cooperative, no acute distress, well developed Orientation: alert, awake, oriented x3 HENMT Head: atraumatic, normocephalic Ears: hearing grossly normal bilaterally Resp Effort AND Inspection: normal respiratory effort, able to speak in complete sentences Auscultation: Bilateral: Clear to Auscultation Cardio Rate: regular rate Rhythm: regular rhythm Heart Sounds: S1 normal, S2 normal GI Palpation: soft (Non tender), no hepatosplenomegaly Neuro General: alert, awake, oriented x3, moves all extremities, CN's II-XI intact bilaterally Extrem General: no clubbing, cyanosis or edema Psych Appearance: grossly normal Mood: congruent mood Affect: normal affect Assessment AND Plan 1. Migraine G43.909 Plan Chronic and not optimally controlled. She reports an almost daily episode. Will start on Amitriptyline for prophylaxis. Continue topiramate. NSAIDs and only use triptan as absolutely needed. Also referred to Meri Fuentes. Follow up in 1 month. Orders Referrals: 2. Abnormal uterine bleeding N93.9 Plan Acute. Has been amenorrheic for 6 years until recent episode. Otherwise feels well. Referred to gynecology. Orders Referrals: Plan Detail Other Medications New: Follow Up 1 Month Coding Level of Care Code Off vis,new,level 3 Diagnoses Migraine G43.909 Abnormal uterine bleeding N93.9 01/31/18 1648 <Electronically signed by Mojgan Cintron MD> Date Mojgan Cintron MD Cosigner Signature: Date (if applicable) CC: IGG SUBCLASSES Collected: 12/30/2017 Status: F Source: [place] 10:36 AM [facility] REPOSITORY TYPE CODE TESTS RESULT OUT OF RANGE REFERENCE UNITS LAB L3200.0600 700-1600 mg/dL Normal IGG, QUANT 887 LAB L3200.0700 248-810 mg/dL Normal IgG, SUBCLASS 533 1 LAB L3200.0800 130-555 mg/dL Normal IgG, SUBCLASS 212 2 LAB L3200.0900 15-102 mg/dL Normal IgG, SUBCLASS 58 3 LAB L3200.1000 2-96 mg/dL Normal IgG, SUBCLASS 4 4 Result Comment: Performed at: - [facility] [address] [id number] Power Plant Inspector: Kenan Dai PhD, Phone: [phone] Performed at: - [facility] [address] [id number] Power Plant Inspector: Hayes Salcedo MD, Phone: [phone] Performed By: #### L3200.0500 #### [facility] (refer to report for specific site) refer to report for address and phone number URGENT CARE VISIT Observed: 12/06/2017 Status: F Source: [place] REPORT 5:40 PM [facility] [facility] [address] [place] [address] OFFICE VISIT Date of Service: 12/06/17 MR#: [id number] Acct: [id number] Name: ALYSON OLMOS Rep #: [id number] : 1975 Provider: Juarez MORALES Age/Sex: 42/F Location[place] [facility] Status: Signed Intake Vital Signs12/06/17 Height 5 ft 5 in 12/06/17 Weight: 170 lb 12/06/17 Body Mass Index (BMI) 28.3 12/06/17 Blood Pressure 124/82 Intake Visit Reasons: COUGH, HEAD CONGESTION Net Mvc Developer Required: No Is patient in pain?: No Allergies Cephalosporins Allergy (Verified 12/06/17 16:16) Shortness of breath codeine Allergy (Verified 12/06/17 16:16) Shortness of breath metronidazole [From Flagyl] Allergy (Verified 12/06/17 16:16) Swelling Medications Levothyroxine [Synthroid] 125 mcg PO DAILY 07/30/17 [History Confirmed 12/06/17] Norethindrone AC-Eth Estradiol [Junel 1.5 mg-30 Mcg Tablet] 1 tab PO DAILY 07/30/17 [History Confirmed 12/06/17] amoxicillin 875 mg-potassium clavulanate 125 mg tablet 1 tab PO Q12H 10 Days #20 tab 12/06/17 [Rx Confirmed 12/06/17] benzonatate 100 mg capsule 200 mg PO TID PRN #30 cap 12/06/17 [Rx Confirmed 12/06/17] cholecalciferol (vitamin D3) 1,000 unit capsule 1,000 unit PO ONCE 12/06/17 [History Confirmed 12/06/17] hydroxychloroquine 200 mg tablet 200 mg PO QDAY 12/06/17 [History Confirmed 12/06/17] PFSH Medical History Arthritis (Acute) Asthma (Acute) Fatigue (Acute) Frequent headaches (Acute) Knee pain (Acute) Lupus (Acute) Shortness of breath (Acute) Thyroid disease (Acute) Surgical History History of (Acute) History of knee surgery (Acute) Status post LASIK surgery (Acute) Social History Smoking Status: Never smoker alcohol intake: never HPI HPI Details: ALYSON OLMOS, is a 42 F who has a pertinent past medical history of multiple sclerosis presents to the office today for sinus congestion and pressure as well as persistent cough for the past 12 days. Patient states that she started with nasal congestion that began a 12 days which has increased and caused pain and sinus headache. She does report that the headache is made slightly better with ibuprofen. She also reports that the cough has been productive of green/yellow sputum however denies any hemoptysis, shortness of breath or difficulty breathing. She reports feeling as if the cough is mostly productive of nasal drainage. She denies fever, chills, sweats. No nausea, vomiting, diarrhea. No other associated symptoms or alleviating/aggravating factors. ROS Const Constitutional: Positive for headache(s); no fever(s), chills, night sweats or abnormal sleep pattern ENT ENT: Positive for headache(s), nasal congestion, sinus pressure, sinus pain and nasal discharge; no ear pain Resp Respiratory: Positive for cough Cough: Yes productive; no shortness of breath, hemoptysis, wheezing, pain with cough or chest congestion Cardio Cardiology: No shortness of breath, irregular heart rhythm or fast heart rate Neuro Neurology: Positive for headache(s); no confusion Psych Psychiatric: No abnormal sleep pattern, No confusion Aller/Imm Allergy/Immunologic: No wheezing Exam Const General: cooperative, healthy appearing [facility] Head: normal to inspection Ears: hearing grossly normal bilaterally, TM's normal bilaterally, EAC's normal Nose: nasal discharge purulent Face and sinus: sinus tenderness frontal and maxillary Mouth: oral mucosae normal Throat: abnormal tonsil bilaterally, postnasal drainage Resp Effort AND Inspection: normal respiratory effort Auscultation: Bilateral: Clear to Auscultation Cardio Palpation: normal PMI Rate: regular rate Rhythm: regular rhythm Neuro General: alert, CN's II-XI intact bilaterally Psych Appearance: grossly normal Mental Status: mental status grossly normal Assessment AND Plan Problems 1. Acute non-recurrent maxillary sinusitis J01. Status Acute Plan Augmentin as prescribed today. Patient has reported taking Augmentin previously without negative side effects. Encouraged to get plenty of rest, drink lots of clear liquids, and use Tylenol or Ibuprofen (unless contraindicated) for fever and comfort. Patient also educated on other symptomatic management techniques. To be seen in 7-10 days if no improvement; sooner if worsening of symptoms. Patient advised of potential red flags when appropriate report to the ED. Patient verbalized understanding of all the above. This note was generated with THEMAation software. It may contain incorrect words, spelling, and punctuation that were not noted in checking the note before signing. Medications New: amoxicillin-pot clavulanate 875-121 tab PO Q12H 10 days J01.90 ANDREW Garcia 5 mg (Augmentin) benzonatate 200 mg (2 x 100 mg) PO TID PRN cou ANDREW Garcia gh Discontinued: prednisone With food Discontinued Rea40 mg (2 x 20 mg) PO DAILY 7 days Cristy Enriquez son: Pt no longer taking Coding Level of Care Code Off vis,est,level 3 Diagnoses Acute non-recurrent maxillary sinusitis J01. Sinusitis location: maxillary Recurrence: non-recurrent 12/06/17 1740 <Electronically signed by Juarez MORALES> Date Juarez MORALES Cosigner Signature: Date (if applicable) CC: HOSP Observed: 10/23/2017 Status: COMPLETED Source: [place] 12:00 AM [facility]US REPOSITORY REFILL - MYCHART (INTBMG) NICKOLASALYSON ([id number]) 1975 F Date Time Provider Department 10/23/17 THEO MCNEAL During your visit today, we recorded the following information about you: Candace Spence CMA 10/24/2017 9:22 AM Signed Message from [employer]: Original authorizing provider: Theo Mcneal MD Alyson HauserRobyn Olmos would like a refill of the following medications: hydroxychloroquine (PLAQUENIL) 200 mg tablet [Theo Mcneal MD] Preferred pharmacy: [facility] [place] [place] [address] [id number] [facility] [phone] PORTAL TO [facility] SITES Comment: Candace Spence CMA 10/24/2017 9:23 AM Signed Patient faxed requesting the following refill. Patient's last appointment: with Theo Mcneal MD was 03/21/2017 Pending Prescriptions Disp Refills HYDROXYCHLOROQUINE 200 MG TABLET 180 tablet 3 Sig: Take 1 tablet by mouth twice daily. MARIA DEL CARMEN: No Patient Phone numbers: [phone] (home) Request is for script(s) to be escript to pharmacy. ALEJANDRO Pereira MD 10/24/2017 1:04 PM Signed Needs to be filled by her turbine mechanic. June Soler 10/26/2017 11:16 AM Signed Pt notified and verbalized understanding. She will contact her turbine mechanic for refill. June Soler Allergies As of Date: 10/23/2017 Noted Allergy Reaction INFLUENZA VIRUS VACCINES 02/06/2014 4 - Hives CEPHALOSPORINS 09/03/2010 10 - Anaphylaxis CODEINE 09/03/2010 10 - Anaphylaxis NITRATES 09/03/2016 14 - Other: See Comments Comments: Migraine LAZO and sick to stomach - SULFATES (SULFATE SALT) 09/03/2016 14 - Other: See Comments Comments: Migraine LAZO and feels horrible, sick to stomach Date Reviewed: 10/17/2017 Reviewed by: Joi Bettencourt Ma - Fully Assessed Reason for Visit: Refill Request [94] Prescriptions as of 10/23/2017 Sig: HYDROCORTISONE 2.5 % TOPICAL * Apply 1 application to affect* ALBUTEROL SULFATE HFA 90 MCG/* Inhale 2 Puffs as instructed * FROVATRIPTAN 2.5 MG TABLET Take 1 tablet by mouth as nee* FROVATRIPTAN 2.5 MG TABLET Take one tablet at onset of h* NORETHINDRONE ACETATE-ETHINYL* Take 1 tablet by mouth once d* OMEPRAZOLE 20 MG CAPSULE,NACHO* Take 1 capsule by mouth twice* SYNTHROID 125 MCG TABLET Take 1 tablet by mouth once d* ERGOCALCIFEROL (VITAMIN D2) 5* Take 1 capsule by mouth once * NABUMETONE 500 MG TABLET Take 1-2 tablets by mouth twi* X TOPIRAMATE 50 MG TABLET Take 2 tablets by mouth twice* PHENTERMINE 37.5 MG CAPSULE LATANOPROST 0.005 % EYE DROPS X HYDROXYCHLOROQUINE 200 MG TAB* TAKE 1 TABLET TWICE A DAY PREDNISONE 10 MG TABLET Take 1 tablet by mouth once d* MOMETASONE 50 MCG/ACTUATION N* Use 2 Sprays in each nostril * EPINEPHRINE 0.3 MG/0.3 ML INJ* Inject 0.3 mL intramuscularly* HYDROXYZINE HCL 25 MG TABLET Take 1 tablet by mouth every * CETIRIZINE 10 MG TABLET Take 1 tablet by mouth once d* FAMOTIDINE 40 MG TABLET Take 1 tablet by mouth once d* TRAMADOL 50 MG TABLET Take 1 tablet by mouth every * BIMATOPROST 0.03 % DROPS WITH* Place one drop on applicator * AMLODIPINE 2.5 MG TABLET Take 1 tablet by mouth once d* FLUCONAZOLE 150 MG TABLET Take one dose as needed, may * BENZONATATE 100 MG CAPSULE Take 2 capsules by mouth thre* Problem List As Of Date 10/23/2017 Noted Resolved Bronchitis [J40] INVALID FOR*10/17/2014 Lupus [L93.0] INVALID FOR* Hypothyroid [E03.9] INVALID FOR* Depression [F32.9] INVALID FOR* Immune deficiency disorder (HCC) [D84.9] More... Raynaud's disease without gangrene [I73.00] INVALID FOR* Encounter Status:Closed by THEO MCNEAL MD on 10/24/17 CBC AND DIFFERENTIAL Collected: 10/17/2017 Status: F Source: [place] 12:25 PM [facility] REPOSITORY TYPE CODE TESTS RESULT OUT OF REFERENCE UNITS RANGE LAB WBC 3.70-11.00 k/uL Low WBC 3.52 LAB RBC 3.90-5.20 m/uL RBC 4.63 LAB HGB 11.5-15.5 g/dL Hemoglobin 13.9 LAB HCT 36.0-46.0 % Hematocrit 44.0 LAB MCV 80.0-100.0 fL MCV 95.0 LAB MCH 26.0-34.0 pG MCH 30.0 LAB MCHC 30.5-36.0 g/dL MCHC 31.6 LAB RDWCV 11.5-15.0 % RDW-CV 12.9 LAB PLTCT 150-400 k/uL Platelet Count 190 LAB MPV 9.0-12.7 fL MPV High 12.8 LAB ANEUT % Neut% 46.9 LAB AANEUT 1.45-7.50 k/uL Abs Neut 1.64 LAB ALYMP % Lymph% 39.8 LAB AALYMP 1.00-4.00 k/uL Abs Lymph 1.40 LAB AMONO % [place]% 8.5 LAB AAMONO <0.87 k/uL Abs [place] 0.30 LAB AEOS % Eosin% 3.7 LAB AAEOS <0.46 k/uL Abs Eosin 0.13 LAB ABASO % Baso% 1.1 LAB AABASO <0.11 k/uL Abs Baso 0.04 LAB AUNRBC 0 /100 WBC NRBCs 0.0 LAB ABNRBC <0.01 k/uL Absolute nRBC <0.01 LAB DTYP DTYPE Auto Diff Performed By: #### CBCDIF, WSR, C3COMP, C4COMP, CRET1, CRP, DNAAB #### [facility] [address] [place], [place] [address] SED RATE WESTERGREN Collected: 10/17/2017 Status: F Source: [place] 12:25 PM [facility] REPOSITORY TYPE CODE TESTS RESULT OUT OF REFERENCE UNITS RANGE LAB WSR 0-20 mm/hr Sed Rate Westergren 2 Performed By: #### CBCDIF, WSR, C3COMP, C4COMP, CRET1, CRP, DNAAB #### [facility] [employer] [address] [place] [address] C3 COMPLEMENT Collected: 10/17/2017 Status: F Source: [place] 12:25 PM [facility] REPOSITORY TYPE CODE TESTS RESULT OUT OF REFERENCE UNITS RANGE LAB C3COMP 86-166 mg/dL C3 Complement 146 Performed By: #### CBCDIF, WSR, C3COMP, C4COMP, CRET1, CRP, DNAAB #### [facility] [employer] [address] [place] [address] C4 COMPLEMENT Collected: 10/17/2017 Status: F Source: [place] 12:25 PM [facility] REPOSITORY TYPE CODE TESTS RESULT OUT OF REFERENCE UNITS RANGE LAB C4COMP 13-46 mg/dL C4 Complement 19 Performed By: #### CBCDIF, WSR, C3COMP, C4COMP, CRET1, CRP, DNAAB #### [place] [address] CREATININE Collected: 10/17/2017 Status: F Source: [place] 12:25 PM [facility] REPOSITORY TYPE CODE TESTS RESULT OUT OF REFERENCE UNITS RANGE LAB CRET 0.58-0.96 mg/dL Creatinine 0.96 LAB GFRAA eGFR- >60 Amer. LAB GFRNAA . eGFR-All Other Races >60 Result Comment: eGFR (Estimated GFR) Units of measure: mL/min/1.73 meters squared eGFR is derived from the reexpressed MDRD Study equation using the following parameters: serum creatinine, age, gender and race. The creatinine assay has been calibrated to be traceable to IDMS. An eGFR <60 mL/min/1.73m2 for >3 months is consistent with chronic kidney disease. Refer to KDOQI guidelines for clinical interpretation. In patients with unstable renal function, e.g. those with acute kidney injury, the eGFR may not accurately reflect actual GFR. Performed By: #### CBCDIF, WSR, C3COMP, C4COMP, CRET1, CRP, DNAAB #### [facility] [employer] [address] [place] [id number] C-REACTIVE PROTEIN Collected: 10/17/2017 Status: F Source: [place] 12:25 PM [facility] REPOSITORY TYPE CODE TESTS RESULT OUT OF REFERENCE UNITS RANGE LAB CRP <0.9 mg/dL C-Reactive 0.5 Protein Performed By: #### CBCDIF, WSR, C3COMP, C4COMP, CRET1, CRP, DNAAB #### [place] [address] DNA ANTIBODY Collected: 10/17/2017 Status: F Source: [place] 12:25 PM [facility] REPOSITORY TYPE CODE TESTS RESULT OUT OF REFERENCE UNITS RANGE LAB DNAAB1 <30 IU/mL DNA Antibody <12 Result Comment: Negative for ds DNA Antibodies Negative: <30 IU/mL Equivocal: 30-74 IU/mL Positive: >74 IU/mL Performed By: #### CBCDIF, WSR, C3COMP, C4COMP, CRET1, CRP, DNAAB #### [place] [id number] HEMOGLOBIN/BLOOD,UR Collected: Status: F Source: [place] 10/17/2017 12:25 PM [facility] REPOSITORY TYPE CODE TESTS RESULT OUT OF REFERENCE UNITS RANGE LAB UHGB Negative Negative Hemoglobin/B lood,Ur Performed By: #### UHGB #### [place] [address] VITAMIN B12 Collected: 10/17/2017 Status: F Source: [place] 12:25 PM [facility] REPOSITORY TYPE CODE TESTS RESULT OUT OF REFERENCE UNITS RANGE LAB B12 232-1245 pg/mL Vitamin B12 308 Performed By: #### B12 #### [place] [address] PROTEIN/CREATININE RATIO Collected: Status: F Source: [place] 10/17/2017 12:25 PM [facility] REPOSITORY TYPE CODE TESTS RESULT OUT OF REFERENCE UNITS RANGE LAB UTPR 0-20 mg/dL Protein Urine 8 Random LAB UCRR 20-300 mg/dL Creatinine,Ur 159.8 ine,Ran LAB PCRAT <0.2 Protein/Creat 0.1 inine Ratio Performed By: #### LUZ #### [facility] [address] [place], [place] [address] PROGRESS Observed: 10/15/2017 Status: COMPLETED Source: [place] 6:34 AM [facility] REPOSITORY HNO ID: [id number] Author: Che Gaffney Service: (none) Author Type: Physician Type: Progress Notes Filed: 10/17/2017 7:39 PM Note Text: Dx: lupus BRIEF RHEUM HISTORY Developed SOB, diffuse hives, facial and tongue swelling, swelling and numbness of the distal arms after finishing a race January 2009. Given EpiPen injection, IV steroids and monitored in the ED for several hours. Had another episode while running March 2009 that required EpiPen injection, IV steroids and ED visit. Since that time she has been on prednisone 10-20 mg daily. Around the time of her first race she developed rash over right shoulder. No improvement despite oral and topical antifungals and topical hydrocortisone. She saw tablet tester Dr. Esteves and told that her shoulder rash was consistent with a fungal infection. She has skin biopsy of the left lateral thigh that showed findings of superficial and deep perivascular dermatitis with focal spongiosis and inflammatory crust that could be seen with an insect bite or drug reaction. She was told that she has a lupus malar rash. She saw turbine mechanic Dr. Hassan in 2010 and started on hydroxychloroquine. She is not sure if hydroxychloroquine has helped with her symptoms because she improved after several medications were started around the same time as the hydroxychloroquine. She still has allergic reactions when she runs and continues to have sporadic papules that can appear anywhere on her body. She usually has at least one or two spots on her body at all times and she attributes it to her lupus. No improvement in these eruptions with HCQ. Later switched care to turbine mechanic Dr. Valerio. Dr. Valerio referred to urology for abdominal pain, recurrent UTI and history of proteinuria. Repeat uinalysis done in April 2014 negative for proteinuria and hematuria. She saw urologist and workup nondiagnostic. Treated with several rounds of antibiotics. 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 IgG infusions were discussed but she is reluctant to proceed with infusions. She has chronic abdominal pain. Had gynecologic workup including pelvic US and CT. She was told that imaging normal except for ovarian cysts and scar tissue. Has dyspareunia. No diarrhea/constipation Longstanding intermittent sob and cp. She saw veterinarian poultry Dr. Soares in the past for SOB. Told that she had vocal cord dysfunction. Workup including PFTs and sleep study. Dr. Valerio ordered chest CT angiogram, EKG and cardiac enzymes during one of her episodes of SOB and chest pain (May 2013) - no PE, normal enzymes and EKG. Referred to ENT Dr Ashby who performed a laryngoscopy. According to patient, it showed mild evidence of reflux and vocal cords did not open all the way. Dr Ashby suggested referral to speech therapy but did not order a formal consult. She instead did exercises that were shown to her at [place] She also has photosensitive rash, morning stiffness lasting a couple of hours, occasional swelling of the hand knuckles (no swelling elsewhere), chronic back pain, hair thinning, recurrent UTIs and pain in the hands and low back at night. HARIKA 1:640 homogeneous, Thyro. Peroxidase Ab 1530.6. (-)RF/CCP/ds DNA/centromere/ALEXUS panel, normal C3,C4 and crp, normal immunoglobulin levels THERAPIES/MEDICATIONS TRIED NSAIDs: Motrin, Aleve, Celebrex DMARDs: PLQ Others: Tramadol, Flexeril (for back), chiropractic manipulations Oral glucocorticosteroids: prednisone Others: chiropractic treatments, amlodipine (for Raynaud's) Injections in joints?: none Injections in spine?: none For her Raynauds: amlodipine (helps) INTERVAL HISTORY: -MICHELLE 08/2016 -was feeling poorly for 4 months due productive cough (yellow sputum), SOB, fatigue and generalized achiness. [place] like it was the flu. Symptoms persisted despite 2 courses of steroids and antibiotics for sinus infection/brochitis. No improvement with steroids. -was seen in ED twice (last visit 08/2017) d/t acute on chronic cough. She was told that she had restrictive airway disease. Given prednisone 40 mg qd x 10 days in ED. Also given inhaler. Inhaler helped -saw her veterinarian poultry who ordered CT chest and sinus and PFTs. CT negative. Told her sinus CT showed hardening and scarring of the maxillary sinus - veterinarian poultry told her to see ENT. PFT results worse with compared to prior - it will be repeated in 2 months. Treated with Tessalon Pearls. -she feels better now - cough not as bad (no a dry cough) but still with generalized achiness and fatigue Sites of pain: generalized achiness. Most bothersome is her low back. Pain most prominent in the mornings and at night. Swollen joints: none EMS: lasting 30 min Tolerating PLQ without evident toxicities: yes Last eye exam: 2016, no PLQ toxicity according to patient. She was also told that she had dry eyes - she discontinued Reclast b/c it caused her eye to twitch (Dr Constantino in [facility]) REVIEW OF SYSTEMS (Positive symptoms in bold-21 positive responses recorded): CONSTITUTIONAL: Fever, fatigue, unintentional weight loss EYES: Pain (due to dryness), redness, loss of vision, dryness EAR, NOSE, MOUTH, THROAT: nose bleeds, hearing loss, sores in mouth, swallowing problems, dry mouth CARDIOVASCULAR: chest pain, swelling in the feet or legs RESPIRATORY: Shortness of breath (see above), Pain with breathing (denies pleuritic chest pain), Chronic cough (see above), coughing up blood GASTROINTESTINAL: heartburn, nausea, Diarrhea (intermittent), blood in the stool or black stool, Abdominal pain (chronic) GENITOURINARY: blood in urine, pain or burning on urination MUSCULOSKELETAL: joint pain, joint swelling, morning stiffness in joints, muscle weakness (sporadic subjective weakness in elbows, wrists), back pain SKIN: Rashes (intermittently on chest ,face or inner arms - no rash presently), sun sensitive rashes, color changes of hands or feet in the cold, hair loss, nail changes NEUROLOGICAL: Headaches, dizziness, numbness or tingling (intermittently in fingers and toes), memory loss, seizures HEMATOLOGIC/LYMPHATIC: Swollen glands, anemia ALLERGIES/IMMUNOLOGIC: allergies (other than medications), increased susceptibility to infection KNOWN MEDICAL CONDITIONS: Diabetes, thyroid disease, high blood pressure PAST MEDICAL HISTORY Scoliosis Lumbar DDD Migraine Hashmoto's thyroiditis Hyperlipidemia Sinusitis (recurrent ) Pneumonia (recurrent) Asthma Lupus (Hcc) Raynaud's phenomenon Immune Deficiency Disorder (Hcc) (IgG deficency Dr Mandujano) Vocal cord dysfunction Questionable celiac disease (she reports gluten free diet improved headaches and burning discomfort in her mouth). 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 albuterol HFA (PROAIR HFA) 90 mcg/actuation inhaler Inhale 2 Puffs as instructed every 4 hours as needed. frovatriptan (FROVA) 2.5 mg tablet Take 1 tablet by mouth as needed. If headache recurs, may repeat after 2 hours. Max of 3 tablets in 24 hours. frovatriptan (FROVA) 2.5 mg tablet Take one tablet at onset of headache, may repeat in 2 hours Norethindrone Acet-Ethinyl Est (JUNE,) 1.5-30 mg-mcg tab Take 1 tablet by mouth once daily. omeprazole (PRILOSEC) 20 mg capsule Take 1 capsule by mouth twice daily. SYNTHROID 125 mcg tablet Take 1 tablet by mouth once daily. ergocalciferol, vitamin D2, (VITAMIN D) 50,000 unit capsule Take 1 capsule by mouth once each week. nabumetone (RELAFEN) 500 mg tablet Take 1-2 tablets by mouth twice daily as needed for Pain. Take with food topiramate (TOPAMAX) 50 mg tablet Take 2 tablets by mouth twice daily. Phentermine HCl 37.5 mg capsule latanoprost (XALATAN) 0.005 % ophthalmic solution hydroxychloroquine (PLAQUENIL) 200 mg tablet TAKE 1 TABLET TWICE A DAY predniSONE (DELTASONE) 10 mg tablet Take 1 tablet by mouth once daily. mometasone (NASONEX) 50 mcg/actuation nasal spray Use 2 Sprays in each nostril once daily. EPINEPHrine (EPIPEN) 0.3 mg/0.3 mL auto-injector Inject 0.3 mL intramuscularly as needed. hydrOXYzine HCl (ATARAX) 25 mg tablet Take 1 tablet by mouth every 8 hours as needed for Itching/Rash. cetirizine (ALL DAY ALLERGY RELIEF,CETIR,) 10 mg tablet Take 1 tablet by mouth once daily. famotidine (PEPCID) 40 mg tablet Take 1 tablet by mouth once daily. traMADol (ULTRAM) 50 mg tablet Take 1 tablet by mouth every 6 hours as needed. bimatoprost 0.03% (LATISSE) 0.03 % ophthalmic solution Place one drop on applicator and apply evenly along the skin of the upper eyelid at base of eyelashes once daily amLODIPine (NORVASC) 2.5 mg tablet Take 1 tablet by mouth once daily. fluconazole (DIFLUCAN) 150 mg tablet Take one dose as needed, may repeat every 3 days benzonatate 100 mg capsule Take 2 capsules by mouth three times daily as needed. No current facility-administered medications for this visit. PE: BP 111/73 Pulse 82 Temp 36.9 ?C (98.4 ?F) (Oral) Ht 165.1 cm (5' 5) Wt 78 kg (172 lb) BMI 28.62 kg/m2 GEN WD/WN, in nad, AANDOx3, normal gait SKIN no rash HEENT no oral or nasal ulcers , moist mouth, no hair loss/thinning HEART rrr, no mgr LUNGS ctab ABDOM +bs, soft, nontender abdomen, nondistended EXT no e/e/c TENDER POINTS: 2/18 MS Swollen joints: none Tender joints: left wrist, right 1st MTP No synovitis. She has Heberden's and Valdez's nodes bilaterally. She has bony overgrowth of both 1st MTPJ. No subcutaneous nodules. +tenderness to palpation of the trapezius bilaterally No tenderness to palpation of the chest wall or lateral hips No tenderness to palpation the muscles of the extremities EXCEPT distal arms bilaterally (which she attributes to recent mountain biking) No tenderness to percussion of the lumbar spine IMAGING (per Dr. Valerio's notes) 06/23 LEFT HIP XRAYS tiny osteophyte off superior acetabulum, otherwise normal 06/23 LUMBAR SPINE XRAYS transitional vertebral body with partially lumbarized S1, otherwise normal PRIOR EVALUATION (see scanned documents) Abnormal/Positive: [facility] 02/2010 HARIKA 1:640 homogeneous, Thyro. Peroxidase Ab 1530.6, thyroglobulin Ab 137.5, Per Dr. Valerio's note 05/24 left lateral thigh skin biopsy: superficial and deep perivascular dermatitis with focal spongiosis and inflammatory crust. DDx: insect bite, drug reaction (no DIF reported) Normal/Negative: [facility] 05/2010 Christy-1, Scl-70, SSA, SSB, Sm/GROUND [address], sedimentation rate, Ig E, Per Dr. Valerio's notes: negative RF/CCP/ds DNA/centromere, neg Hep BsAg/Hep C (HBs Ab+), normal C3,C4 and crp, normal immunoglobulin levels [facility] on July 25, 2014 (see scanned document in EMR): complete blood count, urine tests, complement levels, chemistry profile, liver panel, kidney function and markers of inflammation are all normal or within acceptable range. RECENT LABS Component Latest Ref Rng AND Units 01/16/2015 07/21/2015 02/23/2016 08/19/2016 C4 12 - 46 mg/dL 20 26 DNA Antibody <30 IU/mL <12 <12 Sed Rate, Westergren 0 - 20 mm/hr 3 C3 68 - 260 mg/dL 141 139 CRP <0.9 mg/dL <0.29 0.1 0.3 0.3 WSR 0 - 20 mm/hr 4 5 2 Component Latest Ref Rng AND Units 07/21/2015 08/19/2016 Protein, Urine Random 0 - 20 mg/dL 9 10 Creatinine, Ur Random (UCRR) 20 - 300 mg/dL 191.6 184.4 Protein/Creat Ratio <0.2 0.0 0.1 Hemoglobin/Blood,Ur Negative Negative Negative Component Latest Ref Rng AND Units 03/21/2017 WBC 3.98 - 10.04 thou/cmm 7.54 RBC 3.93 - 5.22 mil/cmm 4.26 HGB 11.2 - 15.7 g/dL 13.1 Hematocrit 34.1 - 44.9 % 38.7 MCV 79.4 - 94.8 fl 90.8 MCH 25.6 - 32.2 pg 30.8 MCHC 31.6 - 34.8 % 33.9 RDW 11.7 - 14.4 % 12.7 RDW-SD 36.4 - 46.3 fl 41.3 Platelet Count 182 - 369 thou/cmm 204 MPV 9.4 - 12.3 fl 12.5 (H) Seg Neutrophil % 53.2 Immature Grans % 0.40 Lymphocyte % 32.9 Monocyte % 10.7 Eosinophil % 1.9 Basophil % 0.9 Seg. Neut. # 1.56 - 6.13 thou/cmm 4.01 Immature Grans # 0.00 - 0.05 thou/cmm 0.03 Lymphocyte # 1.18 - 3.74 thou/cmm 2.48 Monocyte # 0.27 - 0.70 thou/cmm 0.81 (H) Eosinophil # 0.00 - 0.31 thou/cmm 0.14 Basophil # 0.01 - 0.08 thou/cmm 0.07 Component Latest Ref Rng AND Units 08/19/2016 Creatinine 0.58 - 0.96 mg/dL 0.93 eGFR- >60 eGFR-All Other Races . >60 RAPID 3: DISEASE ACTIVITY: Weighed Score Levels: 0 - 1: Near Remission 1.3 - 2.0: Low Severity 2.3 - 4.0: Moderate Severity 4.3 - 10.0: High Severity RAPID-3 Weighed Score 10/17/2017 RAPID 3 Weighed Score 4.1 ASSESSMENT: Lupus. Other PMH: migraine, Olu's thyroiditis, lumbar DDD and asthma. Currently on hydroxychloroquine 200 mg BID +prednisone 10 mg prn. 1. LUPUS ? Involvement: cutaneous, joints, Raynaud's. No visceral involvement. -no objective findings of active autoimmune process -continue PLQ at present dose. -request for 2017 PLQ eye exam result sent to her provider. -reminded to schedule an eye exam this year to monitor for Plaquenil toxicity -check following today and a few days prior to next visit: -CBC + DIFF -C-REACTIVE PROTEIN (CRP) -CREATININE BLD -SED RATE WESTERGREN -DNA ANTIBODY DS BLD -HEMOGLOBIN/BLOOD UR -PROTEIN CREATININE RATIO -C4 COMPLEMENT BLD -C3 COMPLEMENT BLD 2. RAYNAUD'S -stable -no digital ulcers -continue amlodipine 3. VOCAL CORD DYSKINESIA ? 01/28/15 clinic note: Dr. Soares noted: lungs clear so lupus pneumonitis is less likely... some of this dyspnea may be vocal cord dyskinesia. This patient has had VCD in the past and describes inspiratory stridor with heavy exertion while cycling. This may also be the cause for the chest pain as well... Plan: reviewed metered breathing technique. ? 08/27/11 PFTS: normal, no evidence to support exercise induced bronchospasm, FEF/FIF50> 1.00 suggestive of VCD ? 07/12/2013 clinic note from ENT Dr. Misty Ashby: laryngoscopy normal except for slight adduction of true vocal folds with deep breath. Per Dr. Ashby's note: Alyson looks OK except for some sign of GERD/LPR [laryngopharyngeal reflux]. She may have developed some paradoxical movement with her cords and speech therapy may be worthwhile. 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 -f/u with ENT as needed 4. CHRONIC ABDOMINAL PAIN OF UNDETERMINED ETIOLOGY ? had gynecologic evaluation. ? She had pelvic US and CT done - reportedly normal except for ovarian cysts and scar tissue. ? she has not noticed any improvement in her abdominal pain despite taking prednisone 20 mg daily back in Jun 2014. I am hard pressed to attribute her abdominal pain to active lupus without more convincing evidence. ? Referral to a supply cataloguer was recommended but she declined -stable 6. GENERAL HEALTH MAINTENANCE -she will follow up with her PCP for her general health issues RTC in 7 months or sooner if needed SINUS/FACIAL BONE Observed: 09/27/2017 Status: F Source: [place] 4:18 PM [facility] REPOSITORY [facility] Imaging Services [address] [place] [address] Sinus/Facial Bone MR#: [id number] Acct: [id number] Name: ALYSON OLMOS Rep #: [id number] : 1975 F 42 From: Bruce Giang MD PCP: OUT OF TOWN DOCTOR Status: REG CLI Study: Sinus/Facial Bone Date of Exam: 09/27/17 Exam# [id number] Ordering Dr: Alex Soares MD STUDY: CT MAXILLOFACIAL SINUSES REASON FOR EXAM: Female, 42 years old. Maxillary pain for months. RADIATION DOSAGE (If Supplied By Facility): CTDIvol = ( 29.38 ) mGy, DLP = ( 466.65 ) mGycm TECHNIQUE: The patient was scanned in a multi detector CT scanner. High resolution axial imaging was performed without the administration of intravenous contrast material. Sagittal and coronal images were reconstructed. Individualized dose optimization techniques were used for this CT. COMPARISON: None. FINDINGS: FRONTAL SINUSES: Normal aeration, without mucosal inflammatory disease. ETHMOIDAL SINUSES: There is minimal mucosal thickening of the ethmoid sinuses. MAXILLARY SINUSES: There is mild mucosal thickening of the maxillary sinuses bilaterally worse on the right side. SPHENOIDAL SINUSES: Normal aeration, without mucosal inflammatory disease. There is patency of the bilateral maxillary infundibuli with normal uncinate processes, ethmoid bullae, and hiatus semilunaris. Normal bilateral middle turbinates. Normal bilateral inferior turbinates. Normal midline nasal septum. There is patency of the bilateral nasal airways. The visualized osseous structures are normal. The visualized bilateral orbital contents are normal. Small pocket of air are seen anterior to the globes likely representing trapped air. CT/Sinus/Facial Bone IMPRESSION: Mucosal thickening of the maxillary and to a lesser extent ethmoid sinuses consistent with chronic sinusitis. No air-fluid levels are seen. Electronically Signed: Bruce Giang MD at 23:59 EST Tel , Service support , CC: OUT OF TOWN DOCTOR; Alex Soares MD Lump Machine Operator: Signed CHEST WITHOUT Observed: 09/27/2017 Status: F Source: [place] CONTRAST 4:18 PM [facility] REPOSITORY [facility] Imaging Services [address] [place] [address] Chest without Contrast MR#: [id number] Acct: [id number] Name: ALYSON OLMOS Rep #: [id number] : 1975 F 42 From: Bruce Giang MD PCP: OUT OF TOWN DOCTOR Status: REG CLI Study: Chest without Contrast Date of Exam: 09/27/17 Exam# [id number] Ordering Dr: Alex Soares MD STUDY: CT CHEST WITHOUT CONTRAST REASON FOR EXAM: Female, 42 years old. Dyspnea and cough. RADIATION DOSAGE (If Supplied By Facility): CTDIvol = ( 14.37 ) mGy, DLP = ( 490.27 ) mGycm TECHNIQUE: Transaxial imaging was performed without the administration of intravenous contrast material. Individualized dose optimization techniques were used for this CT. COMPARISON: None. FINDINGS: The lungs are normal. There is no demonstrated pleural abnormality. Normal heart and pericardium. There are few small normal sized mediastinal nodes in the aortopulmonic window. There is no evidence of adenopathy. Few small normal sized axillary lymph nodes are seen. Normal hilar regions. Normal unenhanced pulmonary arteries. Normal aorta arch and descending thoracic aorta. There is mild increased kyphosis of the thoracic spine. The visualized portions of the upper abdomen demonstrate fatty infiltration of the liver. The liver may be prominent in size. CT/Chest without Contrast IMPRESSION: No infiltrate is seen. No evidence of pleural effusions. Fatty infiltration of the liver. Electronically Signed: Bruce Giang MD at 0:02 EST Tel , Service support , CC: OUT OF TOWN DOCTOR; Alex Soares MD Lump Machine Operator: Signed EMERGENCY DEPARTMENT Observed: 09/24/2017 Status: F Source: [place] SUMMARY 5:24 PM [facility] REPOSITORY [facility] Medical Records Department [address] [place] [address] Emergency Department Summary 09/24/17 1242 MR#: [id number] Acct: [id number] Name: ALYSON OLMOS Rep #: [id number] : 1975 42 From: Farida Champagne MD PCP: OUT OF [facility] DOCTOR Status: DEP ER - ER Visit Summary Date of Service: 09/24/17 Chief Complaint: Shortness of breath and chronic cough History of Present Illness: The patient is a 42 F who reports several week history of dry, hacking cough. She had recent nausea vomiting and diarrhea that is now improving. 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 Hospital noted some discoloration to her urine a couple days ago. She noted bilirubin when it was checked. She was sent in by her lupus doctor at this [facility] Patient does complain of mild right upper quadrant epigastric tenderness. No fever has been noted. Patient is currently undergoing pulmonary workup with Dr. Soares and is scheduled to have CT scans performed in the next couple days. Physical Examination: Vital signs are unremarkable. Patient is in no acute distress and nontoxic appearing. Head and neck examination is normal. Heart is regular rate and rhythm. Lung sounds are clear with good air movement throughout. Abdomen is soft with mild epigastric and right upper quadrant tenderness. There is no guarding or rebound. Hypoactive bowel sounds are noted throughout. Test Results: CBC significant only for a white count of 3.9. Chemistry studies normal. LFTs are significant only for an AST of 38, otherwise all values are normal. Lipase is normal. Urinalysis today is normal with no bilirubin noted in the urine. Two-view chest x-ray is normal. Emergency Department Course and Treatment: Patient was given IV fluids and Zofran here. On repeat evaluation she is resting comfortably. She is reassured that her labs have normalized. She will follow-up with her lupus specialist at [facility] Treatment Plan: [] Disposition: Discharge Impression: Right upper quadrant pain This note was generated with As It Is dictation software. It may contain incorrect words, spelling, and punctuation that were not noted in review of the chart prior to signing ED Disposition - Plan for ED Patient: Chief Complaint: Shortness of Breath Referrals: [facility] Doctor,Out of [Primary Care Provider] - What to do if you have Problems For any increased pain, shortness of breath, bleeding, nausea or vomiting, chest pain, or any unexpected problems, contact your Primary Care Provider. Call [facility] ([phone]) or report to the closest Emergency Room. Call 911 if necessary. 09/24/17 1724 <Electronically signed by Farida Champagne MD> Date Farida Champagne MD Cosigner Signature (If Indicated): Date CC: OUT OF TOWN DOCTOR DISCHARGE INSTRUCTION Observed: 09/24/2017 Status: F Source: [place] 12:45 PM [facility] REPOSITORY [facility] Medical Records Department [address] [place] [address] Discharge Instruction 09/24/17 1244 MR#: [id number] Acct: [id number] Name: MYKEAnalisaALYSON Rep #: [id number] : 1975 42 From: Farida Champagne MD PCP: OUT OF TOWN DOCTOR Status: REG ER ED Disposition - Plan for ED Patient: Disposition: Home or Assisted Living Chief Complaint: Shortness of Breath Instructions: ED Abdominal Pain Unkn Cause Referrals: [facility] Doctor,Out of [Primary Care Provider] - Additional Instructions: Follow-up with your lupus specialist as discussed. What to do if you have Problems For any increased pain, shortness of breath, bleeding, nausea or vomiting, chest pain, or any unexpected problems, contact your Primary Care Provider. Call [facility] ([phone]) or report to the closest Emergency Room. Call 911 if necessary. 09/24/17 1245 <Electronically signed by Farida Champagne MD> Date Farida Champagne MD Cosigner Signature (If Indicated): Date CC: OUT OF TOWN DOCTOR CBC W/DIFF, AUTOMATED Collected: 09/24/2017 Status: F Source: [place] 11:45 AM [facility] REPOSITORY TYPE CODE TESTS RESULT OUT OF RANGE REFERENCE UNITS LAB L100.1000 4.4-11.0 K/mm3 Low WBC 3.9 LAB L100.1200 4.2-5.4 M/mm3 Normal RBC 4.48 LAB L100.1300 12.0-15.0 g/dl Normal HGB 13.5 LAB L100.1400 37-47 % Normal HCT 39.7 LAB L100.1500 81-99 fL Normal MCV 88.6 LAB L100.1600 27.0-32.0 pg Normal MCH 30.1 LAB L100.1700 32-36 g/gl Normal MCHC 34.0 LAB L100.1810 11.6-14.6 % Normal RDW CV 12.3 LAB L100.1820 35.1-43.9 fl Normal RDW SD 39.6 LAB L100.1900 150-450 K/mm3 Normal PLT 165 LAB L100.2000 6.2-12.0 fl Normal MPV 10.8 LAB L100.2100 47-70 % Normal NEUT% 48.7 LAB L100.2200 19-41 % Normal LY% 33.2 LAB L100.2300 0-10 % High MONO% 13.4 LAB L100.2400 0-5 % Normal EO% 3.6 LAB L100.2500 0-1 % Normal BASO% 0.8 LAB L100.2550 0.0-0.9 % Normal IM GRAN % 0.300 Result Comment: IG% - Immature Granulocytes (promyelocytes, myelocytes and metamyelocytes) > 1% indicates that a LEFT SHIFT is Present. LAB L100.2620 2.0-7.7 X10 3/uL Low Absolute Neut 1.9 LAB L100.2720 0.83-4.51 X10 3/ul Normal Absolute Lymph 1.29 Performed By: #### L100.0100 #### [facility] [place], [address] BASIC METABOLIC Collected: 09/24/2017 Status: F Source: [place] PROFILE (BMP) 11:45 AM [facility] REPOSITORY TYPE CODE TESTS RESULT OUT OF RANGE REFERENCE UNITS LAB L501.0100 70-110 mg/dL Normal GLU 91 LAB L501.1000 7-18 mg/dL Normal BUN 9 LAB L501.1100 0.55-1.02 mg/dL Normal 0.84 CREAT,SERUM Result Comment: The validity of the calculated GFR AND GFRAA in patients over 70 years has not been determined. Clinical correlation is essential. LAB L501.1110 >60 mL/min Normal EST GFR 78 Result Comment: Non- GFR Calc LAB L501.1115 >60 mL/min Normal EST GFR - AA 94 Result Comment: GFR Calc LAB L501.1255 ml/min Normal Estimated CRCL 73.80 LAB L501.1300 10-20 RATIO Normal BUN/CRE 10.7 LAB L501.2200 8.5-10 mg/dL Low .1 CA 8.1 LAB L501.5300 136-14 mmol/L Normal 5 NA 141 LAB L501.5600 3.5-5. mmol/L Normal 1 K 3.6 LAB L501.5900 98-107 mmol/L High CL 108 LAB L501.6100 21.0-3 mmol/L Normal 2.0 CO2 24.0 LAB L501.6200 5-15 Normal GAP 9 Performed By: #### L500.2500, L500.3400, L501.2450 #### [facility] [address] [place], [address] LIVER PROFILE Collected: 09/24/2017 Status: F Source: VI 11:45 AM [facility] REPOSITORY TYPE CODE TESTS RESULT OUT OF RANGE REFERENCE UNITS LAB L501.1500 6.4-8.2 g/dL Normal T PROT 6.7 LAB L501.1800 3.4-5.0 g/dL Normal ALB 3.4 Result Comment: Please note revised Albumin AND Globulin reference range effective 2017. LAB L501.1950 2.2-4.2 g/dL Normal GLOB 3.3 LAB L501.4100 15-37 U/L High AST 38 LAB L501.4305 45-117 U/L Normal ALK P 49 LAB L501.4405 12-78 U/L Normal ALT 62 LAB L501.4600 0.20-1.00 mg/dL Normal T BILI 0.40 LAB L501.4700 0.00-0.30 mg/dL Normal D BILI 0.13 Performed By: #### L500.2500, L500.3400, L501.2450 #### [facility] [address] [place], [address] LIPASE Collected: 09/24/2017 Status: F Source: [place] 11:45 AM [facility] REPOSITORY TYPE CODE TESTS RESULT OUT OF RANGE REFERENCE UNITS LAB L501.2450 73-393 U/L Normal LIPASE 146 Performed By: #### L500.2500, L500.3400, L501.2450 #### [facility] [address] [facility] [place], [address] URINALYSIS, COMPLETE Collected: 09/24/2017 Status: F Source: [place] 11:40 AM [facility] REPOSITORY Order Comment: Order Date: 09/24/17 Has pt arrived? Y How was Urine Obtained? CLEAN CATCH TYPE CODE TESTS RESULT OUT OF RANGE REFERENCE UNITS LAB L400.3000 Yellow COLOR Normal Straw LAB L400.3050 Clear Normal CLARITY Clear LAB L400.3200 Normal mg/dl Normal GLUCOSE, UR Normal LAB L400.3300 Negative mg/dL Normal BILIRUBIN URINE Negative LAB L400.3400 Negative mg/dl Normal KETONE UR Negative LAB L400.3465 1.002-1.030 Normal SP.GR. DIPSTX 1.010 LAB L400.3550 5.0 - 8.0 pH UR Normal 7.0 LAB L400.3600 Negative mg/dl PROT Normal DIPSTX Negative LAB L400.3700 Normal mg/dl Normal UROBILI Normal LAB L400.3750 Negative Normal NITRITE UR Negative LAB L400.3780 Negative /ul Normal OCCULT BLOOD-UR Negative LAB L400.3800 Negative /ul LEUK Normal ESTERASE Negative LAB L400.4050 0-5 /hpf WBC 0 Normal SEEN LAB L400.4100 0-5 /hpf 0 Normal RBC-UA SEEN LAB L400.4150 5-10 /hpf SQUAM Normal EPI 0-5 SEEN LAB L400.4300 None Seen /hpf Normal BACTERIA RARE LAB L400.4350 <or=2+ /hpf 0 Normal MUCUS, URINE SEEN Performed By: #### L400.0001 #### [facility] [address] [place], [address] CHEST PA AND LATERAL Observed: 09/24/2017 Status: F Source: [place] 11:27 AM [facility] REPOSITORY [facility] Imaging Services [address] [place] [address] Chest PA and Lateral MR#: [id number] Acct: [id number] Name: ALYSON OLMOS Rep #: [id number] : 1975 F 42 From: Michel Davidson MD PCP: OUT OF TOWN DOCTOR Status: REG ER Study: Chest PA and Lateral Date of Exam: 09/24/17 Exam# [id number] Ordering Dr: Farida Champagne MD STUDY: X-RAY CHEST REASON FOR EXAM: Female, 42 years old. Cough for 4 months TECHNIQUE: PA and lateral views of the chest. COMPARISON: Chest x-rays on July 30, 2017. FINDINGS: The lungs are clear and expanded. There is no demonstrated pleural abnormality. Normal size heart. Normal mediastinum and meghan. Normal visualized pulmonary arteries. Normal visualized aortic arch and descending thoracic aorta. Normal visualized thoracic spine. Normal visualized ribs, clavicles, and shoulders. There is no demonstrated abnormality of the visualized soft tissue structures of the upper abdomen. RAD/Chest PA and Lateral IMPRESSION: Normal x-ray examination of the chest. Stable since the prior examination Electronically Signed: Michel Davidson MD, FACR at 12:30 EST , Service support , CC: Farida Champagne MD; OUT OF TOWN DOCTOR Lump Machine Operator: Signed OBSOLETE Observed: 09/19/2017 Status: COMPLETED Source: [place] 12:00 AM [facility] REPOSITORY Refill ([facility]) SAVANNAALYSON LU ([id number]) 1975 F Date Time Provider Department 09/19/17 THEO MCNEAL [facility] During your visit today, we recorded the following information about you: Allergies As of Date: 09/19/2017 Noted Allergy Reaction INFLUENZA VIRUS VACCINES 02/06/2014 4 - Hives CEPHALOSPORINS 09/03/2010 10 - Anaphylaxis CODEINE 09/03/2010 10 - Anaphylaxis NITRATES 09/03/2016 14 - Other: See Comments Comments: Migraine LAZO and sick to stomach - SULFATES (SULFATE SALT) 09/03/2016 14 - Other: See Comments Comments: Migraine LAZO and feels horrible, sick to stomach Date Reviewed: 03/21/2017 Reviewed by: Theo Mcneal - Fully Assessed Reason for Visit: Refill Request [94] Prescriptions as of 09/19/2017 Sig: PHENTERMINE 37.5 MG TABLET take 1 tablet by mouth once d* HYDROCORTISONE 2.5 % TOPICAL * Apply 1 application to affect* ALBUTEROL SULFATE HFA 90 MCG/* Inhale 2 Puffs as instructed * FROVATRIPTAN 2.5 MG TABLET Take 1 tablet by mouth as nee* FROVATRIPTAN 2.5 MG TABLET Take one tablet at onset of h* NORETHINDRONE ACETATE-ETHINYL* Take 1 tablet by mouth once d* OMEPRAZOLE 20 MG CAPSULE,NACHO* Take 1 capsule by mouth twice* SYNTHROID 125 MCG TABLET Take 1 tablet by mouth once d* ERGOCALCIFEROL (VITAMIN D2) 5* Take 1 capsule by mouth once * NABUMETONE 500 MG TABLET Take 1-2 tablets by mouth twi* TOPIRAMATE 50 MG TABLET Take 2 tablets by mouth twice* PHENTERMINE 37.5 MG CAPSULE LATANOPROST 0.005 % EYE DROPS HYDROXYCHLOROQUINE 200 MG TAB* TAKE 1 TABLET TWICE A DAY PREDNISONE 10 MG TABLET Take 1 tablet by mouth once d* MOMETASONE 50 MCG/ACTUATION N* Use 2 Sprays in each nostril * EPINEPHRINE 0.3 MG/0.3 ML INJ* Inject 0.3 mL intramuscularly* HYDROXYZINE HCL 25 MG TABLET Take 1 tablet by mouth every * CETIRIZINE 10 MG TABLET Take 1 tablet by mouth once d* FAMOTIDINE 40 MG TABLET Take 1 tablet by mouth once d* TRAMADOL 50 MG TABLET Take 1 tablet by mouth every * BIMATOPROST 0.03 % DROPS WITH* Place one drop on applicator * AMLODIPINE 2.5 MG TABLET Take 1 tablet by mouth once d* FLUCONAZOLE 150 MG TABLET Take one dose as needed, january * BENZONATATE 100 MG CAPSULE Take 2 capsules by mouth thre* Problem List As Of Date 09/19/2017 Noted Resolved Bronchitis [J40] INVALID FOR*10/17/2014 Lupus [L93.0] INVALID FOR* Hypothyroid [E03.9] INVALID FOR* Depression [F32.9] INVALID FOR* Immune deficiency disorder (HCC) [D84.9] More... Raynaud's disease without gangrene [I73.00] INVALID FOR* Encounter Status:Closed by CLAUDINE GONZALEZ on 09/19/17 OBSOLETE Observed: 09/16/2017 Status: COMPLETED Source: [place] 12:00 AM [facility] REPOSITORY Refill ([facility]) ALYSON OLMOS ([id number]) 1975 F Date Time Provider Department 09/16/17 THEO MCNEAL During your visit today, we recorded the following information about you: Candace Spence CMA 09/16/2017 3:58 PM Signed Pharmacy faxed requesting the following refill. Patient's last appointment: with Theo Mcneal MD was 09/08/2017 Patient's last appointment in the department was: 09/08/2017 Please print so we can fax the medication in. Pending Prescriptions Disp Refills PHENTERMINE 37.5 MG TABLET 30 tablet 0 Sig: take 1 tablet by mouth once daily HARIKA Class: C-IV MARIA DEL CARMEN: No Patient Phone numbers: [phone] (home) [phone] (work) Request is for script(s) to be escript to pharmacy. Candace Spence CMA Claudine Kory 09/19/2017 5:30 PM Signed RX was called in to [facility]. Allergies As of Date: 09/16/2017 Noted Allergy Reaction INFLUENZA VIRUS VACCINES 02/06/2014 4 - Hives CEPHALOSPORINS 09/03/2010 10 - Anaphylaxis CODEINE 09/03/2010 10 - Anaphylaxis NITRATES 09/03/2016 14 - Other: See Comments Comments: Migraine LAZO and sick to stomach - SULFATES (SULFATE SALT) 09/03/2016 14 - Other: See Comments Comments: Migraine LAZO and feels horrible, sick to stomach Date Reviewed: 03/21/2017 Reviewed by: Theo Mcneal - Fully Assessed Reason for Visit: Refill Request [94] Primary Visit Diagnosis:Migraine without aura, intractable, without status migrainosus [G43.019] Order(s):Phentermine HCl 37.5 mg tablettake 1 tablet by mouth once dailyDisp: 30 tabletRfl: 0 Prescriptions as of 09/16/2017 Sig: PHENTERMINE 37.5 MG TABLET take 1 tablet by mouth once d* HYDROCORTISONE 2.5 % TOPICAL * Apply 1 application to affect* ALBUTEROL SULFATE HFA 90 MCG/* Inhale 2 Puffs as instructed * FROVATRIPTAN 2.5 MG TABLET Take 1 tablet by mouth as nee* FROVATRIPTAN 2.5 MG TABLET Take one tablet at onset of h* NORETHINDRONE ACETATE-ETHINYL* Take 1 tablet by mouth once d* OMEPRAZOLE 20 MG CAPSULE,NACHO* Take 1 capsule by mouth twice* SYNTHROID 125 MCG TABLET Take 1 tablet by mouth once d* ERGOCALCIFEROL (VITAMIN D2) 5* Take 1 capsule by mouth once * NABUMETONE 500 MG TABLET Take 1-2 tablets by mouth twi* TOPIRAMATE 50 MG TABLET Take 2 tablets by mouth twice* PHENTERMINE 37.5 MG CAPSULE LATANOPROST 0.005 % EYE DROPS HYDROXYCHLOROQUINE 200 MG TAB* TAKE 1 TABLET TWICE A DAY PREDNISONE 10 MG TABLET Take 1 tablet by mouth once d* MOMETASONE 50 MCG/ACTUATION N* Use 2 Sprays in each nostril * EPINEPHRINE 0.3 MG/0.3 ML INJ* Inject 0.3 mL intramuscularly* HYDROXYZINE HCL 25 MG TABLET Take 1 tablet by mouth every * CETIRIZINE 10 MG TABLET Take 1 tablet by mouth once d* FAMOTIDINE 40 MG TABLET Take 1 tablet by mouth once d* TRAMADOL 50 MG TABLET Take 1 tablet by mouth every * BIMATOPROST 0.03 % DROPS WITH* Place one drop on applicator * AMLODIPINE 2.5 MG TABLET Take 1 tablet by mouth once d* FLUCONAZOLE 150 MG TABLET Take one dose as needed, january * BENZONATATE 100 MG CAPSULE Take 2 capsules by mouth thre* Problem List As Of Date 09/16/2017 Noted Resolved Bronchitis [J40] INVALID FOR*10/17/2014 Lupus [L93.0] INVALID FOR* Hypothyroid [E03.9] INVALID FOR* Depression [F32.9] INVALID FOR* Immune deficiency disorder (HCC) [D84.9] More... Raynaud's disease without gangrene [I73.00] INVALID FOR* Prescriptions ordered this encounter Disp Refills Start End PHENTERMINE 37.5 MG TABLET 30 t* 0 09/16/2017 10/16/2017 Class: Print RX Sig: take 1 tablet by mouth once daily Medications Discontinued During This Encounter Phentermine HCl 37.5 mg tablet 30 t* 1 09/01/2017 09/16/2017 Class: Call Rx Route: ORAL Sig: Take 1 tablet by mouth once daily for 90 days. Disc: Reason for discontinue is not on file. Encounter Status:Closed by CLAUDINE GONZALEZ on 09/19/17 EMERGENCY DEPARTMENT Observed: 09/07/2017 Status: F Source: [place] SUMMARY 12:14 AM [facility] REPOSITORY [facility] Medical Records Department [address] [place] [address] Emergency Department Summary 09/06/17 2317 MR#: [id number] Acct: [id number] Name: ALYSON OLMOSNA Rep #: [id number] : 1975 41 From: Young Kirkpatrick MD PCP: OUT OF TOWN DOCTOR Status: [facility] ER - ER Visit Summary Date of Service: 09/06/17 Chief Complaint: Acute on chronic cough History of Present Illness: The patient is a 41 F past medical history of lupus and prior lupus pneumonitis. Also hypothyroidism. Patient states she has had a chronic cough for approximately 2 months. She was initially treated with steroids and Zithromax 2 different prescriptions. Initially was somewhat better now is gotten worse again. Especially in the last 2 weeks. She denies any hemoptysis. She has had some loose stools from antibiotic. She denies any chest pain. No hemoptysis. Physical Examination: Well-appearing middle-age female. No acute distress. Vital signs are stable afebrile. Pulse ox is 9 9% room air no signs of hypoxia. HEENT exam is unremarkable. Neck nontender no JVD no lymphadenopathy. Lungs clear to auscultation bilaterally. With dry hacking cough. Heart regular rate and rhythm no murmur. Abdomen soft nontender. She is moving all 4 extremities. Calves are nontender without edema. Back exam normal. Skin exam normal. Neurologic exam normal Test Results: The patient's nature of her chronic cough I did send a pertussis culture. This will not return tonight. Emergency Department Course and Treatment: Due to the history of lupus and lupus pneumonitis. She placed on prednisone 40 mg a day for 10 days. 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 Also on emergency department the patient developed a headache behind her left eye typical to her migraines. Was treated with IV fluids, Toradol and Zofran. Treatment Plan: Patient's veterinarian poultry to follow-up the pertussis culture. Placed on prednisone 40 mg a day for 1 week. Disposition: Discharged Impression: Acute on chronic cough of uncertain etiology. Rule out pertussis versus lupus pneumonitis Acute cephalgia with a history of migraines This note was generated with As It Is dictation software. It may contain incorrect words, spelling, and punctuation that were not noted in review of the chart prior to signing ED Disposition - Plan for ED Patient: Chief Complaint: Cough Referrals: [facility] Doctor,Out of [Primary Care Provider] - What to do if you have Problems For any increased pain, shortness of breath, bleeding, nausea or vomiting, chest pain, or any unexpected problems, contact your Primary Care Provider. Call [facility] ([phone]) or report to the closest Emergency Room. Call 911 if necessary. 09/07/1713 <Electronically signed by Young Kirkpatrick MD> Date Young Kirkpatrick MD Cosigner Signature (If Indicated): Date CC: OUT OF TOWN DOCTOR DISCHARGE INSTRUCTION Observed: 09/07/2017 Status: F Source: VI 12:14 AM [facility] REPOSITORY [facility] Medical Records Department [address] [place] [address] Discharge Instruction 09/06/17 232 MR#: [id number] Acct: [id number] Name: NICKOLASANGELITO Rep #: [id number] : 1975 41 From: Young Kirkpatrick MD PCP: OUT OF TOWN DOCTOR Status: DEP ER ED Disposition - Plan for ED Patient: Disposition: Home or Assisted Living Chief Complaint: Cough Prescriptions: Prednisone [Deltasone] 40 mg PO DAILY 7 Days tab Referrals: Alex Soares MD [STAFF PHYSICIAN] - As soon as possible Additional Instructions: Prednisone 40 mg a day for 1 week. Call follow-up with Dr. Soares. He can follow-up your pertussis culture. What to do if you have Problems For any increased pain, shortness of breath, bleeding, nausea or vomiting, chest pain, or any unexpected problems, contact your Primary Care Provider. Call [facility] ([phone]) or report to the closest Emergency Room. Call 911 if necessary. 09/07/1713 <Electronically signed by Young Kirkpatrick MD> Date Young Kirkpatrick MD Cosigner Signature (If Indicated): Date CC: OUT OF TOWN DOCTOR Observed: 09/06/2017 Status: F Source: VI BORDATELLA PANEL 9:30 PM [facility] MOLECULAR REPOSITORY BORDATELL PANEL B PERTUSSIS Not Detected B PARAPERTUSSIS BRONCHISE Not Detected B HOLMESII Not Detected NAAT METHOD Testing was performed using nucleic acid amplification Performed By: #### M100.629 #### [facility] [address] [place], [address] ALLERGIES ALLERGIES DATE TYPE / NAME / CODE REACTION SEVERITY SOURCE CODE 08/13/2018 Drug Cephalosporins/F0010 Shortness of Unknown Vi Allergy/41 08394(RXNORM) breath Community 8845702([facility]) Repository 08/13/2018 Drug codeine/[id number](R Shortness of Unknown [place] Allergy/41 XNORM) breath Community 6370742([facility]) Repository 08/13/2018 Drug metronidazole/M71666 Swelling Unknown Vi Allergy/41 2958(RXNORM) Community 3153106([facility]) Repository 08/13/2018 Drug fentanyl/S091388255( Other Unknown Vi Allergy/41 RXNORM) Community 1128645([facility]) Repository 09/03/2016 Food/19780 NITRATES OTHER: SEE C Henning 1000([facility] Main D CT) [place] Repository 09/03/2016 DRUG SULFATE SALT OTHER: SEE C Henning INGREDI/41 Clinic Main 6680609([facility] OMED CT) Repository 02/06/2014 Drug INFLUENZA VIRUS HIVES High [place] Class/4195 VACCINES Clinic Main 76891([facility] [place] ED CT) Repository 09/03/2010 Drug CEPHALOSPORINS ANAPHYLAXIS [place] Class/4195 Clinic Main 99966([facility] [place] [facility]) Repository 09/03/2010 DRUG CODEINE ANAPHYLAXIS [place] INGREDI/41 Clinic Main 6444533([facility] CT) Repository NG/0365107 INFLUENZA VIRUS [facility] Repository NG/0320100 CEPHALOSPORINS [facility] 06[facility] [employer] System CT) Repository NG/0429857 CODEINE [facility] 06([employer] [facility] CT) Repository NG/2245406 NITRATES [facility] 06([employer] [facility] CT) Repository NG/0448785 SULFATE SALT [facility] 06([employer] [facility] CT) Repository ENCOUNTERS ENCOUNTERS ADMIT/DISCHARGE ACCOUNT NUMBER ADMITTING ENCOUNTER LOCATION SOURCE CLASS 08/22/2018 [id number] Ambulatory [facility] ding:NS Repository 08/14/2018 [id number] Ambulatory [facility] ding:[facility] Repository 08/13/2018/08/13/20 [id number] Emergency [address] ding:ED Repository 06/24/2018/06/24/20 [id number] Ambulatory BMSBuilding: [place] 18 BMS.[facility] Repository 06/05/2018/06/11/20 [id number] Ambulatory [address] ding:NS Repository 05/22/2018 [id number] Ambulatory [facility] ding:OPBI Repository 05/02/2018/05/02/20 [id number] Ambulatory BMSBuilding: [place] 18 BMS.[facility] Repository 05/01/2018 [id number] Ambulatory [facility] ding:LABSPEC Repository 05/01/2018/05/01/20 [id number] Ambulatory BMSBuilding: [place] 18 BMS.[facility] Repository 04/21/2018 [id number] Ambulatory [facility] ding:LABSPEC Repository 03/23/2018 [id number] Ambulatory [facility] ding:LAB Repository 03/23/2018/03/23/20 [id number] Ambulatory BMSBuilding: [place] 18 BMS.[facility] Repository 02/27/2018 [id number] Ambulatory BMSBuilding: [place] BMS.[facility] Repository 01/31/2018/02/01/20 [id number] Ambulatory BMSBuilding: [place] 18 BMS.[facility] Repository 01/27/2018 [id number] Ambulatory BMSBuilding: [place] BMS.[facility] Repository 12/30/2017 [id number] Ambulatory [facility] ding:LABSPEC Repository 12/06/2017/12/07/19 [id number] Ambulatory BMSBuilding: [place] 18 [facility] Repository 10/17/2017 [id number] Ambulatory [facility] Repository 10/17/2017/10/17/19 [id number] Ambulatory [address] Repository 09/27/2017 [id number] Ambulatory [facility] ding:CT Repository 09/24/2017/09/24/19 [id number] Emergency [place] [address] ding:ED Repository 09/09/[id number] [facility] MEDICAL Repository CENTERBuildi ng:IBMG 09/06/2017/09/06/20 [id number] Emergency [place] ding:ED Repository PAYERS PAYERS ENCOUNTER GUARANTOR PAYER SUBSCRIBER SOURCE 08/22/2018 GWEN Primary ALYSON Kemposter [id number] [address] Insurance:ANTHEMPolic [place]LAKESSLE[place]OB: [place] Number: [id number] Hospital 65996Hvv: ([phone]) [id number] Repository [phone] () Date:1944-70-23DN [address] [place] [address] 19811DR: 08/22/2018 Secondary NOT GIVENUNK [place] Insurance:SELF PAY [facility] Number: Effective Repository Date:2018-06-12 08/14/2018 GWEN Primary ALYSON [address] [id number] [address] Insurance:ANTHEMPolic BLAKESSLEEDOB: [place] Number: [id number] Hospital 36655Zoo: ([phone]) [id number] Repository [phone] () Date:6668-12-27RU [address] [place] [address] 69758SN: 08/14/2018 Secondary NOT GIVENUNK [place] Insurance:SELF PAY [facility] Number: Effective Repository Date:2018-08-14 08/13/2018 GWEN Primary ALYSON Kemposter [id number] [address] Insurance:ANTHEMPolic BLAKESSLEEDOB: [place] [address] Number: [id number] Hospital 17551Hwn: ([phone]) [id number] Repository [phone] () Date:2269-98-16YO [address] [place] [address] 69892QH: 08/13/2018 Secondary NOT GIVENUNK [place] Insurance:SELF PAY [facility] Number: Effective Repository Date:2018-08-13 06/24/2018 GWEN Primary ALYSON Kemposter [id number] [address] Insurance:ANTHEMPolic [place]LAKESSLEEDOB: [place] [address] Number: [id number] Hospital 90033Eyl: [phone]) [id number] Repository [phone] () Date:6246-46-44WA [address] [place] [address] 55190LE: 06/24/2018 Secondary NOT GIVENUNK Vi Insurance:SELF PAY [facility] Number: Effective Repository Date:2018-06-24 06/05/2018 GWEN Primary ALYSON Kemposter [id number] [address] Insurance:ANTHEMPolic [place]LAKESSLEEDOB: [place] [address] Number: [id number] Hospital 49254Yhb: (419) [id number] Repository [phone] () Date:8958-68-03NP [address] [place] [address] 25549EW: 06/05/2018 Secondary NOT GIVENUNK Vi Insurance:SELF PAY [facility] Number: Effective Repository Date:2018-04-24 05/22/2018 GWEN Primary ALYSON Kemposter [id number] [address] Insurance:ANTHEMPolic BLAKESSLEEDOB: [place] [address] Number: [id number] Hospital 71899Gby: ([phone]) [id number] Repository [phone] () Date:9833-07-39MG [address] [place] [address] 34389EA: 05/22/2018 Secondary NOT GIVENUNK Vi Insurance:SELF PAY Community [facility] Number: Effective Repository Date:2018-05-02 05/02/2018 GWEN Primary ALYSON Hauser [place] [id number] [address] Insurance:ANTHEMPolic BLAKESSLEEDOB: [place] [address] Number: [id number] Hospital 64228Wis: [phone]) [id number] Repository [phone] () Date:4003-88-54CP [address], [place] [address]IX: 05/02/2018 Secondary NOT GIVENUNK [place] Insurance:SELF PAY [facility] Number: Effective Repository Date:2018-05-02 05/01/2018 GWEN Primary GWEN Vi [id number] [address] Insurance:ANTHEMPolic BLAKESSLEEDOB: [place] [address] Number: [id number] Hospital 19571Bln: ([phone]) [id number] Repository [phone] () Date:2595-03-89QZ [address], [place] [address]NC: 05/01/2018 Secondary NOT GIVENUNK Vi Insurance:SELF PAY [facility] Number: Effective Repository Date:2018-05-01 05/01/2018 GWEN Primary GWEN Vi [id number] [address] Insurance:ANTHEMPolic BLAKESSLEEDOB: [place] [address] Number: [id number] Hospital 78846Yco: (419) [id number] Repository [phone] () Date:7085-35-19KP [address]YBD[address], [place] [address]CH: 05/01/2018 Secondary NOT GIVENUNK Vi Insurance:SELF PAY [facility] Number: Effective Repository Date:2018-05-01 04/21/2018 GWEN Primary ALYSON Hauser Vi [id number] [address] Insurance:ANTHEMPolic BLAKESSLEEDOB: [place] [address] Number: [id number] Hospital 23801Zaq: ([phone]) [id number] Repository [phone] () Date:4107-09-53MO [address]FLNJ[address], [place] [address]LO: 04/21/2018 Secondary NOT GIVENUNK [place] Insurance:SELF PAY [facility] Number: Effective Repository Date:2018-04-21 03/23/2018 GWEN Primary ALYSON Hauser [place] [id number] CR Insurance:ANTHEMPolic [place]LAKESSLEEDOB: [place] [address] Number: [id number] Hospital 44191Itt: [phone]) [id number] Repository [phone] () Date:0144-15-74BL [address] [place] [address] 764[address]WU: 03/23/2018 Secondary NOT GIVENUNK [place] Insurance:SELF PAY [facility] Number: Effective Repository Date:2018-03-23 03/23/2018 GWEN Primary GWEN [place] [id number] CR Insurance:ANTHEMPolic BLAKESSLEEDOB: [place] [address] Number: [id number] Hospital 36131Wxy: (002) [id number] Repository [phone] () Date:3726-70-80IR[address] [address]OY: 03/23/2018 Secondary NOT GIVENUNK Vi Insurance:SELF PAY [facility] Number: Effective Repository Date:2018-03-23 02/27/2018 GWEN Primary ALYSON [address] [id number] [address] Insurance:ANTHEMPolic [place]LAKESSLE[place]OB: [place] [address] Number: [id number] Hospital 94971Itk: ([phone]) [id number] Repository [phone] () Date:1450-40-02PI [address] [place] [address] 083[address]FX: 02/27/2018 Secondary NOT GIVENUNK Vi Insurance:SELF PAY [facility] Number: Effective Repository Date:2018-01-31 01/31/2018 GWEN Primary GWEN [place] [id number] CR Insurance:ANTHEMPolic BLAKESSLEEDOB: [place] [address] Number: [id number] Hospital 40836Wqs: ([phone]) [id number] Repository [phone] (HP) Date:7515-71-05BV [address]ESGQIZJ, [place] [address]ZM: 01/31/2018 Secondary NOT GIVENUNK Vi Insurance:SELF PAY [facility] Number: Effective Repository Date:2018-01-24 01/27/2018 ALYSON [address]bron [id number] [address] Insurance:ANTHEMPolic [place]LAKESSLE[place]OB: [place] [address] Number: [id number] Hospital 15982Daq: ([phone]) [id number] Repository [phone] () Date:7451-33-23CZ [address]MSBSZ[address], [place] [address]GA: 01/27/2018 Secondary NOT GIVENUNK [place] Insurance:SELF PAY [facility] Number: Effective Repository Date:2017-12-23 12/30/2017 ALYSON [address] [id number] [address] Insurance:ANTHEMPolic [place]LAKESSLE[place]OB: [place] [address] Number: [id number] Hospital 812[address]Gir: ([phone]) [id number] Repository [phone] () Date:1410-58-22XH [address]KDPCLGC, [place] [address]UC: 12/30/2017 Secondary NOT GIVENUNK [place] Insurance:SELF PAY [facility] Number: Effective Repository Date:2017-12-30 12/06/2017 ALYSON [address] [id number] [address] Insurance:ANTHEMPolic [place]LAKESSLE[place]OB: [place] [address] Number: [id number] Hospital 47287Kgv: ([phone]) [id number] Repository [phone] () Date:3708-70-15GK [address] [address]JG: 12/06/2017 Secondary NOT GIVENUNK [place] Insurance:SELF PAY [facility] Number: Effective Repository Date:2017-12-06 09/27/2017 Alyson [address]bron [id number] [address] Insurance:ANTHEMPolic [place]akessleeDOB: [place] [address] Number: [id number] Hospital 14020Xer: (692) [id number] Repository [phone] (HP) Date:0299-53-40LW [address]VQAXHGZ, [place] [address]IP: 09/27/2017 Secondary NOT GIVENUNK [place] Insurance:SELF PAY [facility] Number: Effective Repository Date:2017-09-19 09/24/2017 Alyson Hernandez Primary Alyson [address] [id number] [address] Insurance:ANTHEMPolic [place]akessleeDOB: [place] [address] Number: [id number] Hospital 882[address]Fxr: ([phone]) [id number] Repository [phone] (HP) Date:0034-56-87ZX [address]NZFQPHP [place] [address]WB: 09/24/2017 Secondary NOT GIVENUNK Vi Insurance:SELF PAY [facility] Number: Effective Repository Date:2017-09-24 09/09/2017 GWEN Primary ALYSON [employer] BLAKESSLEEDOB: Insurance:ANTHEM [place] [facility]LAKESS[facility]EDOB: [facility] Number: [id number] Repository [facility] [address] [id number] [address] Date: [address]Zgn: (HP) 09/06/2017 Alyson Hernandez Primary Alyson [address] [id number] [address] Insurance:ANTHEMPolic [place]akessleeDOB: [place] [address] Number: [id number] [facility] [address]Skf: ([id number]) [id number] Repository [phone] (HP) Date:5516-74-79QE [address]DEPWYL, [place] [address]FW: 09/06/2017 Secondary NOT GIVENUNK [place] Insurance:SELF PAY [facility] Number: Effective Repository Date:2017-09-06
== END 2018-08-13 21:32 | disposition home or self-care (01) ==
PROVIDERS: Emergency Provider Emergency Medicine; Family Provider Internal Medicine; PCP Internal Medicine
DX: L73.9 Follicular disorder, unspecified (principal); E78.00 Pure hypercholesterolemia, unspecified; J45.909 Unspecified asthma, uncomplicated; K21.9 Gastro-esophageal reflux disease without esophagitis
CPT/HCPCS: 99283

== ENCOUNTER → 2018-08-14 15:44 | Outpatient (CLI) | payer BC, SELFPAY ==
[2018-08-13 20:36] VITALS: BMI 29.1
--- NOTE | 2018-08-14 15:49 | VDLE_ITS ---
Reason For Study: RLE Pain RIGHT GSV is normal. CFV is compressible, spontaneous, phasic, competent and demonstrates normal augmentation. FV is compressible, spontaneous, phasic, competent and demonstrates normal augmentation. POP V is compressible, spontaneous, phasic, competent and demonstrates normal augmentation. T/P Trunk is compressible. PTV is compressible. RT PerV is compressible. Procedure Exam performed in department. <> Interpretation Summary Deep veins of the right lower extremity are patent and compressible segmentally. There is no evidence of right lower extremity deep vein thrombosis. Valvular competence appears intact within the proximal deep venous system on the right . The right greater saphenous vein appears patent and compressible segmentally. Ordering Physician: Farida Champagne Referring Physician: Junaid Knight ([facility]) Performed By: Fallon Fernandez RVT and Student
== END ==
PROVIDERS: Family Provider Internal Medicine; PCP Internal Medicine; Referring Provider Emergency Medicine; Visit Provider Emergency Medicine
DX: M79.604 Pain in right leg (principal)
CPT/HCPCS: 93971

== ENCOUNTER 2018-11-28 10:37 | Outpatient (RCR) | payer BC, SELFPAY | END 2018-12-10 23:59 | LOC: NS 10:37 | PROVIDERS: Family Provider Internal Medicine; PCP Internal Medicine; Visit Provider Nurse Practitioner Family | DX: E66.9 Obesity, unspecified (principal); Z68.30 Body mass index [BMI] 30.0-30.9, adult; Z71.3 Dietary counseling and surveillance | CPT/HCPCS: 97803 ==

== ENCOUNTER 2018-11-29 11:30 | Outpatient (RCR) | payer BC, SELFPAY ==
--- NOTE | 2018-09-20 06:30 | HP.PTEVAL ---
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 Date of Evaluation: 09/18/18 Physical Therapist: Zafar Keita DPT - Visit Plan Frequency: 2x /Week Duration: 8-10 weeks Plan: Start with x2 per week, 1 day in aquatics and 1day on land focus on ROM and strenght. Progress per protocol. - Subjective Findings: Pt. is here today for her initial evaluation S/P TOMAS stem cell cartiladge rectonstruction of tibial femoral joint or R knee. Pt. is S/P surgery 7 weeks prior. Pt. reports being in TROM brace locked in ext since. Pt. reprots having progressed to a cane 2 weeks ago, but continues to have increased pain with walking and sensitivity to touch. She has trialed riding a stationary bike, but reports increasd pain. Pt. has been doing exercises per her prescribed protocol, working on ROM and using her CPM. Pt. has had 4 previous knee surgeries on this same knee. Pt. is hopeful to reduce pain and get back to all recreational activities without limitations. - Pain R knee Pain Intensity (Out of 10): 4 Pain Intensity Range: 2, 7 - Objective POSTURE: Pt. has normal posture in stance with slight L lateral wt.shift off R knee. Pt. has normal iliac crest heights. Lacks TKE in stance on RLE. PALPATION: PT. has well healed incision, no signs of infection. Pt. has negative homans sign. Pt. does have increased tightness of incision during knee flexion (band like). NEURO: Pt. has normal reflexes, she does have hyper sensitivity of R knee near incision to light and moderate touch. No pitting edema. ROM: R knee 0-6-118deg. Pain with slight over pressure. Pt. has tight R HS and calf. MMT: RLE- ankle 5/5 throughout; knee- ext SLR with minimal qiad lag, flexion- 4/5; hip- flexion 4/5, abd 4/5, ext 4/5. GAIT: Pt. ambulates with TROM brace with increased L lateral lean with use of crutch. Pt. has increased pain during WBing phase of gait. - Goals Goal 1:: Pt. to be I with HEP. Goal Time Frame: 4-6 Weeks Goal 2:: Pt. to have have full ROM knee ROM. Goal Time Frame: 4-6 Weeks Goal 3:: Pt. to ambulate without AD with normal gait pattern without increase in symptoms. Goal Time Frame: 6-8 Weeks Goal 4:: Pt. to have increased strength of RLE by 1/2 grade of all effected musculature. Goal Time Frame: 4-6 Weeks Goal 5:: Pt. to sleep throughout the night wihtout increase in symptoms. Goal Time Frame: 4-6 Weeks - Rehabilitation Potential Physical Therapy Diagnosis: Pt. has signs and symptoms consistent with TOMAS stem cell replacement of R tibial femoral cartiledge. Pt. has subsequent hypombility and weakness resulting in difficulty with walking. Pt. would benefit from on both land an aquatics to increase ROM, strength and proress ambulation in order to get back to all recreational and work activities without limitations. Rehabilitation Potential: Good - Anticipated Interventions Patient/Client Instruction: Educate patient on: Condition, Plan of Care, Risk Factors, Benefits of Fitness Program For the Purpose of:: To facilitate caregiver knowledge, To improve self management, To prevent re-injury, To improve ability to perform tasks related to life management, To improve tolerance to ADL's Therapeutic Exercise to Include: Strength training, Power training, Balance training, Coordination, Agility training, Body mechanics, Postural training, Flexibilty training, Gait and locomotor training, In an aquatic setting, Passive ROM, Active ROM, Dynamic Lumbar Stabilization For the Purpose of:: To decrease pain, To increase ROM, To improve nutrient delivery to tissue, To increase oxygenation perfusion, To improve muscle performance and motor function, To improve ability to perform ADL's, To increase tolerance to activity/condition/position, To improve performance and independence with ADL's, To improve gait and locomotor functions, To improve health of tissue, To decrease soft tissue restriction, To increase flexibility/ROM, To improve endurance, To improve balance, To improve safety with gait IF ES: Yes Cryotherapy (ice pack, ice massage): Yes Vasopneumatic device: Yes For the Purpose of:: To decrease pain, To decrease swelling/inflammation, To increase ROM Thank you for the opportunity to evaluate your patient. For Medicare and Medicare HMO plans, please review the plan of care and approve it. It will need to be FAXED BACK to us at [phone] for Medicare purposes. For Medicare only, by signing this I certify the plan of care. Please let me know if there are questions or concerns regarding this plan of care. Physician Signature: Date:
--- NOTE | 2019-01-10 12:27 | HP.PT.NRP ---
HP - Discharge Summary (1) - Patient Information SUSHIL OLMOS was seen in my office for initial evaluation on 09/18/18. The following Plan of Care was established for this patient: Initial Frequency: 2x /Week Initial Duration: 8-10 weeks - Anticipated Interventions Patient/Client Instruction: Educate patient on: Condition, Plan of Care, Risk Factors, Benefits of Fitness Program For the Purpose of:: To facilitate caregiver knowledge, To improve self management, To prevent re-injury, To improve ability to perform tasks related to life management, To improve tolerance to ADL's Therapeutic Exercise to Include: Strength training, Power training, Balance training, Coordination, Agility training, Body mechanics, Postural training, Flexibilty training, Gait and locomotor training, In an aquatic setting, Passive ROM, Active ROM, Dynamic Lumbar Stabilization For the Purpose of:: To decrease pain, To increase ROM, To improve nutrient delivery to tissue, To increase oxygenation perfusion, To improve muscle performance and motor function, To improve ability to perform ADL's, To increase tolerance to activity/condition/position, To improve performance and independence with ADL's, To improve gait and locomotor functions, To improve health of tissue, To decrease soft tissue restriction, To increase flexibility/ROM, To improve endurance, To improve balance, To improve safety with gait IF ES: Yes Cryotherapy (ice pack, ice massage): Yes Vasopneumatic device: Yes For the Purpose of:: To decrease pain, To decrease swelling/inflammation, To increase ROM This patient was last seen in our office 11/29/18. Pertinent comments regarding their Physical therapy will appear below: Pt. was seen her her TOMAS procedure with land and aquatic exercises. Pt. was progress as expected, but was having some difficulty with walking. Pt. was back to work. Pt. has not been seen in 6 weeks and will be DC from PT at this point in time. At this point I will be discontinuing this patient from physical therapy. I would be happy to see this patient again in the future if found appropriate by the physician. Thank you! Zafar Keita, ANAID
== END 2018-11-29 19:00 | disposition home or self-care (01) ==
LOC: PT 11:30
PROVIDERS: Family Provider Internal Medicine; PCP Internal Medicine
DX: M22.41 Chondromalacia patellae, right knee (principal)
CPT/HCPCS: 97016; 97110; 97113; 97162

== ENCOUNTER → 2018-12-13 07:45 | Outpatient (CLI) | payer BC, SELFPAY ==
--- NOTE | 2018-12-13 07:47 | BI_ITS ---
MAMMOGRAPHY - BILATERAL SCREENING REASON FOR EXAM: Female, 43 years old. Routine annual screening examination. PERTINENT HISTORY: Non-contributory. TECHNIQUE: Digital bilateral breast jared (3D mammographic acquisition) in the CC and MLO projections. 2-D mediolateral oblique (MLO) and craniocaudad (CC) views of both breasts were obtained. CAD: Full Field Digital Mammography with Computer Added Detection was performed. COMPARISON: Comparison is made with prior examination dated October 02, 2013. FINDINGS: Breast Composition: There are scattered areas of fibroglandular density. There are no dominant masses or suspicious calcifications. No other significant abnormalities are identified. There has been no significant change since the prior study. BI/SCREENING MAMM (CAD), BILAT IMPRESSION: Stable bilateral screening mammogram. Yearly follow-up mammogram recommended. (A) ASSESSMENT CATEGORY: BIRADS Category 1: Negative. A letter regarding these results will be sent to the patient by the facility within 30 days. Approximately 10% of breast cancers are not detected by mammography. A normal mammogram should not delay biopsy of a clinically suspicious abnormality. [id number] Electronically Signed: Tito Sanchez, at 13:44 EDT , Service support ,
== END ==
PROVIDERS: Family Provider Internal Medicine; PCP Internal Medicine; Referring Provider Obstetrics & Gynecology; Visit Provider Obstetrics & Gynecology
DX: Z12.31 Encounter for screening mammogram for malignant neoplasm of breast (principal)
CPT/HCPCS: 77063; 77067

== ENCOUNTER 2019-01-19 09:03 | Outpatient (RCR) | payer BC, SELFPAY | END 2019-02-09 23:59 | LOC: NS 09:03 | PROVIDERS: Family Provider Internal Medicine; PCP Internal Medicine; Visit Provider Nurse Practitioner Family | DX: E66.9 Obesity, unspecified (principal); Z68.30 Body mass index [BMI] 30.0-30.9, adult; Z71.3 Dietary counseling and surveillance | CPT/HCPCS: 97803 ==

== ENCOUNTER → 2019-01-24 13:48 | Outpatient (CLI) | payer BC, SELFPAY ==
--- NOTE | 2019-01-24 14:00 | MRI_ITS ---
STUDY: MRI BRAIN WITHOUT CONTRAST REASON FOR EXAM: Female, 43 years old. Memory loss and left frontal migraine TECHNIQUE: Standardized multiplanar fat and water weighted pulse sequences were obtained. COMPARISON: CT of paranasal sinuses on September 27, 2017 FINDINGS: Normal size of the ventricles and extra-axial spaces for the patient's age. Normal white matter tracts of the supratentorial brain. Normal bilateral basal ganglia. Normal thalami. There is no extra-axial fluid accumulation. Normal flow voids within the major intracranial circulation suggesting patency by spin echo criteria. Normal sella turcica, pituitary gland, infundibular stalk, optic chiasm and hypothalamus. Normal tectal plate and pineal gland. Normal midbrain, heidy and medulla. Normal cerebellum. Normal basal cisterns. Normal bilateral temporal bones. Normal bilateral internal auditory canals. No demonstrated orbital abnormality, within the constraints of a routine brain study. Mild polypoid mucosal thickening of the maxillary sinuses and minor mucosal thickening of the ethmoid air cells. Normal calvarium and skull base. Normal visualized soft tissue structures. Normal visualized upper cervical spine. MRI/Brain without Contrast IMPRESSION: Normal unenhanced MRI of the brain. Bilateral maxillary and ethmoid sinusitis Electronically Signed: Young Winkler MD at 15:57 EDT , Service support ,
== END ==
PROVIDERS: Family Provider Internal Medicine; PCP Internal Medicine; Referring Provider Psychiatry & Neurology Neurology; Visit Provider Psychiatry & Neurology Neurology
DX: R41.3 Other amnesia (principal)
CPT/HCPCS: 70551

== ENCOUNTER 2019-03-01 17:22 | Outpatient (RCR) | payer BC, SELFPAY | END 2019-03-01 23:59 | disposition home or self-care (01) | LOC: NS 17:22 | PROVIDERS: Family Provider Internal Medicine; PCP Internal Medicine; Visit Provider Nurse Practitioner Family | DX: E66.9 Obesity, unspecified (principal); Z68.30 Body mass index [BMI] 30.0-30.9, adult; Z71.3 Dietary counseling and surveillance | CPT/HCPCS: 97803 ==

== ENCOUNTER 2019-03-31 21:56 | Emergency (ER) | payer BC, SELFPAY ==
[2019-03-31 21:57] VITALS: BP 129/80; PULSE 80; RESP 16; TEMP 36.7; O2SAT 100; BMI 33.0
[2019-03-31] MEDS: 0.9% Normal Saline 1,000 ML 999 ML IV (22:45)
--- NOTE | 2019-03-31 22:46 | ED.DCSUM_ITS ---
History of Present Illness Chief Complaint: Headache Informant: Patient Onset: Today - all day, about 15 hrs Context: Gradual Timing: Continuous Quality: Similar Prior Headaches, Throbbing Location: left retroorbital Current Severity: Moderate Maximum Severity: Moderate Worsened by: light Relieved by: dark Associated Symptoms: Nausea, Visual Changes - disturbance/spots, no vision loss or diplopia, Photophobia. Negative for: Vomiting Narrative: Patient has a history of migraines and lupus. 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 She did take her maintenance medication. His headache is not unlike others she has had in the past. She has been switched back and forth from and to migraine medications many times in the past. Same with her lupus. She has paresthesias in the left lower extremity, neuropathy, and memory problems that are all thought to be related to her lupus. She is following up with her specialist again with regards to these, and has seen her neurologist about the symptoms. 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 She states she noticed a little discomfort in her perineum earlier, however she has not had foul-smelling urine and dysuria like she has in the past with urine infections. However, she did urinate 3 times relatively frequently tonight, so she is presenting for evaluation of that and for treatment of her migraine, she is no longer working and has a ride home. Prior similar symptoms: Yes Past Medical History - Allergies and Home Meds Allergies/Adverse Reactions: Allergies Cephalosporins Allergy (Verified 03/31/19 21:58) Shortness of breath codeine Allergy (Verified 03/31/19 21:58) Shortness of breath fentanyl Allergy (Verified 03/31/19 21:58) Other metronidazole [From Flagyl] Allergy (Verified 03/31/19 21:58) Swelling Primary Care Physician: Mojgan Cintron MD [Primary Care Provider] - Smoking Status: Never smoker Review of Systems General: Reports: Malaise. Denies: Chills, Fever Eyes: Reports: Visual changes - bilaterally. Denies: Blurred Vision - bilaterally, Diplopia ENT: Denies: Rhinorrhea, Sore throat Cardiovascular: Denies: Chest pain, Palpitations Respiratory: Denies: Dyspnea, Cough, Dyspnea on exertion Gastrointestinal: Reports: Nausea. Denies: Abdominal pain, Vomiting Genitourinary: Reports: Frequency - today. Denies: Hematuria Musculoskeletal: Reports: Extremity Pain - LLE chronic. Denies: Back pain Skin: Denies: Rash, Abscess, Wounds Neurological: Reports: Headache, Parasthesia - LLE chronic. Denies: Weakness Physical Exam Vital Signs/Narrative: Vital Signs Temp Pulse Resp BP Pulse Ox 03/31/19 21:57 98.1 F 80 16 129/80 H 100 Inital Vital Signs reviewed: Yes General: Well nourished, Well developed Head: NC, AT Eyes: Perrl, EOMI, - - +photophobia ENT: Moist mucous membranes, No rhinorrhea. Negative for: Nasal congestion Neck: Supple, No Meningismus Respiratory: No distress Skin: Normal color, No rash, No Trauma Neuro: Alert, Oriented x3, Cranial nerves II-XII grossly intact, Normal Strength , Normal Sensation, Normal Gait Psychological: Normal affect, Normal Mood Diagnostic/Tx/Re-eval Laboratory Tests 03/31/19 Range/Units 22:05 Urine Color Yellow (Yellow) Urine Clarity Clear (Clear) Urine pH 6.0 (5.0 - 8.0) Ur Specific [place] 1.020 (1.002-1.030) Urine Protein 15 H (Negative) mg/dl Urine Glucose (UA) Normal (Normal) mg/dl Urine Ketones 5 H (Negative) mg/dl Urine Occult Blood 150 H (Negative) /ul Urine Nitrite Negative (Negative) Urine Bilirubin Negative (Negative) mg/dL Urine Urobilinogen 1 H (Normal) mg/dl Ur Leukocyte Esterase 25 H (Negative) /ul Urine RBC 0-5 SEEN (0-5) /hpf Urine WBC 0-5 SEEN (0-5) /hpf Ur Squamous Epith Cells 0-5 SEEN (5-10) /hpf Urine Bacteria 1+ (None Seen) /hpf Urine Mucus 0 SEEN (<or=2+) /hpf - Medical Decision Making Patient was given IV fluids along with Toradol and Reglan for her migraine. She did have some improvement, her headache did not resolve, and she developed mild akathisia with that. I offered her other medications, she is not sleepy and does not want to drive home, we discussed using Benadryl for side effects, and she is comfortable with this plan. With regards to her urine, urinalysis does not show acute infection, so I do not think a culture is warranted there, which I discussed with her as well. ED Disposition - Plan for ED Patient: Disposition: Home or Assisted Living Diagnosis: Migraine headache Instructions: ED, Migraine (Classical) Referrals: Mojgan Cintron MD [Primary Care Provider] - As Needed
[2019-03-31 22:52] LABS: Mucous, Urine 0 SEEN /hpf (<or=2+)
[2019-03-31 22:53] LABS: Color, Urine Yellow (Yellow); Glucose, Dipstick Normal (Normal); Ketone-Dipstick 5 mg/dl (Negative); Leukocyte Esterase-Dipstick 25 /ul (Negative); Nitrite-Dipstick Negative (Negative); Occult Blood-Urine 150 /ul (Negative); Protein-Dipstick 15 mg/dl (Negative); Urine Bilirubin Dipstick Negative (Negative); Urine Clarity Clear (Clear); Urine Urobilinogen 1 mg/dl (Normal)
[2019-03-31 23:05] LABS: Red Blood Cells-Urine 0-5 SEEN /hpf (0-5); Squamous Epithelial Cells - UA 0-5 SEEN /hpf (5-10); White Blood Cells 0-5 SEEN /hpf (0-5)
[2019-03-31 23:06] LABS: Bacteria 1+ /hpf (None Seen)
[2019-03-31] MEDS: Ketorolac 30 MG/ML Syringe IV (23:17)
[2019-03-31] MEDS: Metoclopramide 10 MG/2 ML Vial IV (23:17)
== END 2019-04-01 00:04 | disposition home or self-care (01) ==
PROVIDERS: Emergency Provider Emergency Medicine; Family Provider Internal Medicine; PCP Internal Medicine
DX: G43.909 Migraine, unspecified, not intractable, without status migrainosus (principal); M32.9 Systemic lupus erythematosus, unspecified; Z88.1 Allergy status to other antibiotic agents
CPT/HCPCS: 81001; 96361; 96374; 96375; 99283; J7030; A4216

== ENCOUNTER 2019-05-23 11:00 | Outpatient (RCR) | payer BC, SELFPAY ==
--- NOTE | 2019-03-09 12:39 | HP.PTEVAL_ITS ---
Patient's Visit Information SUSHIL OLMOS is a 43 year old F referred to Physical Therapy by Cruz Watters MD with a diagnosis of R knee pain, chondramalasis, TOMAS procedure. Date of Evaluation: 02/20/19 Physical Therapist: Zafar Keita DPT - Visit Plan Frequency: 1-2x /Week Duration: 4-6 Weeks Plan: Start with TKE ROM, quad, hip,core strengthening. Both on land and in aquatic setting. Progress HEP and stress to ensure compliance. - [facility]ive [facility]: [facility]glute [facility] after having TOMAS procedure on her R knee (R chondramalasia). Pt. had surgery several months prior and has been slowly returning back to work and recreational activities. Pt. has been biking upto 15 miles at a time,but reports having increased pain after. 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 Pt's physician did recommend that she not work back to back days and reduce milage with bike, but to allso continue with HEP, which she has not been doing much off. Pt. reports continud soreness with walking, standing for longer periods of time. Pt. is hopeful to reduce symptoms in order to get back to all recreational and work activities without limitations. - Pain R knee Pain Intensity (Out of 10): 2 Pain Intensity Range: 0, 4 - Objective POSTURE: PT. has normal posture in stance. Slight lack of TKE of RLE in stnace, but is able to achieve with VCing. SLight wt. shift to L side. PALPATION: Pt. has mild tenderness with palpation of medial joint line. NEURO: Pt. has normal sensation, but does report some numbness near incision. ROM: R knee 0-2-128deg AROM, PROM 0-0-133deg. Normal HS and hip flexor length. MMT: RLE- ankle 5/5 throughout; knee- ext 5-/5, flexion 5/5; hip- flexion 5-/5, abd 4+/5, add 5/5, ext 4+/5. Core strength- fair-. GAIT: Pt. ambulates without AD. Pt. has improved stride length, but lacks slight TKE during R stance phase. Pt. reports mild increase NW during stance phase as well. - Goals Goal 1:: Pt. to be I with HEP. Goal Time Frame: 4-6 Weeks Goal 2:: Pt. to have icnreased R knee ROM to 0-0-130deg without increase in symptoms. Goal Time Frame: 4-6 Weeks Goal 3:: Pt. to have increased RLE and core strength by 1/2 grade. Goal Time Frame: 4-6 Weeks Goal 4:: Pt. to ambulate with normal pattern unlimited distances without increase in symptoms. Goal Time Frame: 4-6 Weeks - Rehabilitation Potential Physical Therapy Diagnosis: Pt. has signs and symptoms consistent with R knee pain, chondramalasis, TOMAS procedure. Pt. has subsequent hypombility, weakness of core and hip and difficulty with work related activities. Rehabilitation Potential: Excellent - Anticipated Interventions Patient/Client Instruction: Educate patient on: Condition, Plan of Care, Risk Factors, Benefits of Fitness Program For the Purpose of:: To foster healthy habits, To improve decision making, To facilitate caregiver knowledge, To improve self management, To prevent re- injury, To improve ability to perform tasks related to life management Therapeutic Exercise to Include: Strength training, Power training, Balance training, Coordination, Postural training, Flexibilty training, Gait and locomotor training, In an aquatic setting, Passive ROM, Active ROM, Dynamic Lumbar Stabilization For the Purpose of:: To decrease pain, To decrease swelling/inflammation, To increase ROM, To improve nutrient delivery to tissue, To improve muscle performance and motor function, To improve gait and locomotor functions, To improve health of tissue, To increase flexibility/ROM, To improve endurance, To improve balance IF ES: Yes Cryotherapy (ice pack, ice massage): Yes Vasopneumatic device: Yes For the Purpose of:: To decrease pain, To decrease swelling/inflammation, To increase ROM Thank you for the opportunity to evaluate your patient. For Medicare and Medicare HMO plans, please review the plan of care and approve it. It will need to be FAXED BACK to us at [phone] for Medicare purposes. For Medicare only, by signing this I certify the plan of care. Please let me know if there are questions or concerns regarding this plan of care. Physician Signature: Date:
--- NOTE | 2019-09-06 07:18 | HP.PTDCNRP_ITS ---
HP - Discharge Summary (1) - Patient Information SUSHIL OLMOS was seen in my office for initial evaluation on 02/20/19. The following Plan of Care was established for this patient: Initial Frequency: 1-2x /Week Initial Duration: 4-6 Weeks - Anticipated Interventions Patient/Client Instruction: Educate patient on: Condition, Plan of Care, Risk Factors, Benefits of Fitness Program For the Purpose of:: To foster healthy habits, To improve decision making, To facilitate caregiver knowledge, To improve self management, To prevent re- injury, To improve ability to perform tasks related to life management Therapeutic Exercise to Include: Strength training, Power training, Balance training, Coordination, Postural training, Flexibilty training, Gait and locomotor training, In an aquatic setting, Passive ROM, Active ROM, Dynamic Lumbar Stabilization For the Purpose of:: To decrease pain, To decrease swelling/inflammation, To increase ROM, To improve nutrient delivery to tissue, To improve muscle performance and motor function, To improve gait and locomotor functions, To improve health of tissue, To increase flexibility/ROM, To improve endurance, To improve balance IF ES: Yes Cryotherapy (ice pack, ice massage): Yes Vasopneumatic device: Yes For the Purpose of:: To decrease pain, To decrease swelling/inflammation, To increase ROM This patient was last seen in our office 05/23/19. Pertinent comments regarding their Physical therapy will appear below: Pt. was seen for her L knee pain, post surgery. Pt. has not been seen in several months and will be DC from PT at this point in time. At this point I will be discontinuing this patient from physical therapy. I would be happy to see this patient again in the future if found appropriate by the physician. Thank you! Zafar Keita, IAMT
== END 2019-05-23 19:00 | disposition home or self-care (01) ==
LOC: PT 11:00
PROVIDERS: Family Provider Internal Medicine; PCP Internal Medicine; Referring Provider Internal Medicine Gastroenterology; Visit Provider Internal Medicine Gastroenterology
DX: M22.41 Chondromalacia patellae, right knee (principal)
CPT/HCPCS: 97110; 97113; 97161

== ENCOUNTER → 2019-11-02 | Outpatient (CLI) | payer BC, SELFPAY ==
[2019-10-29 12:36] VITALS: BMI 33.0
[2019-11-02 12:15] LABS: AST(SGOT) 37 U/L (15-37); Alanine Aminotransfer ALT/SGPT 83 U/L (13-56); Albumin, Serum 4.1 g/dL (3.2-5.0); Alkaline Phosphatase 87 U/L (45-117); Bilirubin, Direct 0.09 mg/dL (0.00-0.30); Globulin 4.2 g/dL (2.2-4.2); Protein, Total 8.3 g/dL (6.4-8.2)
== END | disposition home or self-care (01) ==
PROVIDERS: PCP Internal Medicine; Referring Provider Internal Medicine Rheumatology; Visit Provider Internal Medicine Rheumatology
DX: R74.8 Abnormal levels of other serum enzymes (principal)
CPT/HCPCS: 36415; 80076

== ENCOUNTER → 2019-12-05 11:44 | Outpatient (CLI) | payer OTHER, BC, SELFPAY ==
[2019-10-29 12:36] VITALS: BMI 33.0
--- NOTE | 2019-12-05 12:03 | RAD_ITS ---
STUDY: X-RAY CHEST REASON FOR EXAM: Female, 44 years old. DRY COUGH, SOB AND FEVER. TECHNIQUE: PA and lateral views of the chest. COMPARISON: Comparison is made with prior study dated September 24, 2017. FINDINGS: The lungs are clear and expanded. Scattered calcified granulomas. There is no demonstrated pleural abnormality. Normal size heart. Normal mediastinum and meghan. Normal visualized pulmonary arteries. Normal visualized aortic arch and descending thoracic aorta. Normal visualized thoracic spine. Normal visualized ribs, clavicles, and shoulders. There is no demonstrated abnormality of the visualized soft tissue structures of the upper abdomen. RAD/Chest PA and Lateral IMPRESSION: No acute abnormality is seen. Electronically Signed: Tito Sanchez, at 13:16 EDT , Service support ,
[2019-12-05 12:59] LABS: Erythrocyte Sedimentation Rate 2 mm/hr (0-20)
[2019-12-05 13:01] LABS: Absolute Lymphocyte Count 1.96 X10^3/uL (0.83-4.51); Absolute Neutrophil Count 4.1 X10^3/uL (2.0-7.7); Basophil# 0.06 X10^3/uL; Basophil% 0.9 % (0-1); Eosinophil# 0.18 X10^3/uL; Eosinophils% 2.6 % (0-5); Hematocrit 41.1 % (37-47); Hemoglobin 13.6 g/dL (12.0-15.0); Lymphocyte # 1.96 X10^3/ul (4.0); Lymphocyte % 28.5 % (19-41); Mean Corp Hgb Conc 33.1 g/dL (32-36); Mean Corpuscular Hgb 28.8 pg (27.0-32.0); Mean Corpuscular Volume 86.9 fL (81-99); Mean Platelet Vol. 10.9 fl (6.2-12.0); Monocyte# 0.54 X10^3/uL; Monocyte% 7.9 % (0-10); NRBC Flagged by Analyzer 0 % (0-5); Neutrophil # 4.11 X10^3/uL (2.7-7.7); Neutrophil % 59.8 % (47-70); Platelet Count 259 K/mm3 (150-450); RBC Distribution Width CV 12.2 % (11.6-14.6); RBC Distribution Width SD 38.4 fl (35.1-43.9); Red Blood Count 4.73 M/mm3 (4.2-5.4); White Blood Count 6.9 K/mm3 (4.4-11.0)
[2019-12-05 13:13] LABS: Albumin, Serum 3.8 g/dL (3.2-5.0); CRP < 2.90 mg/L (0.0-3.0)
== END ==
PROVIDERS: PCP Internal Medicine; Referring Provider Internal Medicine Pulmonary Disease; Visit Provider Internal Medicine Pulmonary Disease
DX: R05 Cough (principal); R06.00 Dyspnea, unspecified
CPT/HCPCS: 36415; 71046; 82040; 85025; 85652; 86140; 87804

== ENCOUNTER 2019-12-07 20:34 | Emergency (ER) | payer OTHER, BC, SELFPAY ==
[2019-10-29 12:36] VITALS: BMI 33.0
[2019-12-07 20:34] VITALS: BP 123/79; PULSE 79; RESP 15; TEMP 36.6; O2SAT 99; BMI 32.3
[2019-12-07 21:17] VITALS: O2SAT 99
--- NOTE | 2019-12-07 21:28 | ED.VIS.FLU ---
History of Present Illness Chief Complaint: Cough Informant: Patient Onset: Days - 17 Timing: Continuous Quality: Negative for: Dyspnea on exertion, Orthopnea, PND, Wheezing Associated Symptoms: Cough, Post-nasal drainage, Rhinorrhea, Sore throat Chest Pain: None Narrative: Patient is a 44-year-old female with history of undifferentiated connective tissue disease, Olu's thyroiditis, ray nods phenomenon, degenerative disc disease presenting with persistent cough. Patient states that she is had this cough for 17 days. She is been evaluated through telemedicine by her surgical scrub technologist who put her on a Z-Jorge in the past. She is also currently on Tessalon Perles, prednisone taper and albuterol inhaler/nebulizer. She states her cough that is slowly worsening but is not getting better. She [facility] They heard her cough and were concerned and instructed to go straight to the emergency room. Patient states her surgical scrub technologist actually told her to stay out of the emergency room. Patient she is had some intermittent vomiting diarrhea but states that seems to be better. She is been drinking plenty of water. Patient had chest x-ray as well as a CBC, CRP and ESR 2 days ago. She also had a flu swab. These were all negative/normal. Past Medical History - Allergies and Home Meds Allergies/Adverse Reactions: Allergies Cephalosporins Allergy (Verified 12/07/19 20:39) Shortness of breath codeine Allergy (Verified 12/07/19 20:39) Shortness of breath fentanyl Allergy (Verified 12/07/19 20:39) Other metronidazole [From Flagyl] Allergy (Verified 12/07/19 20:39) Swelling Primary Care Physician: Mojgan Cintron MD [Primary Care Provider] - Prior records reviewed: Yes Past Medical History: - - undifferentiated connective tissue disease, Olu's thyroiditis, raynauds phenomenon, degenerative disc disease Surgical History: noncontributory Smoking Status: Never smoker Review of Systems General: Reports: Malaise. Denies: Chills, Fever, Sweats Eyes: Denies: Visual changes - bilaterally, Diplopia ENT: Reports: Bilateral ear pain, Rhinorrhea, Sore throat Cardiovascular: Denies: Chest pain, Palpitations Respiratory: Reports: Cough. Denies: Dyspnea, Dyspnea on exertion Gastrointestinal: Denies: Abdominal pain, Nausea, Vomiting, Diarrhea, Melena, Hematochezia Genitourinary: Denies: Dysuria, Hematuria, Frequency Musculoskeletal: Denies: Myalgias, Arthralgias Skin: Denies: Rash Neurological: Reports: Headache. Denies: Weakness, Numbness Physical Exam Vital Signs/Narrative: Vital Signs Temp Pulse Resp BP Pulse Ox 12/07/19 20:34 97.8 F 79 15 123/79 H 99 Inital Vital Signs reviewed: Yes General: Well nourished, Well developed Head: Normocephalic, Atraumatic Eyes: Perrl, EOMI ENT: Moist mucous membranes, No rhinorrhea, TM's clear. Negative for: Purulent Discharge, Sinus tenderness Neck: Supple, Nontender Cardiovascular: Regular rate, Regular rhythm, No murmurs Respiratory: No distress, CTA bilaterally, No Stridor, Chest nontender, - - Hacking cough . Negative for: Rhonchi, Wheezing, Diminished, Decreased Air Movement Abdomen: Soft, Nontender, Nondistended, Normal bowel sounds Back: Nontender, Normal Inspection Extremities: Nontender, No edema Skin: Normal color, No rash Neurological: Alert, Oriented x3, Cranial nerves II-XII grossly intact, Normal Strength, Normal Sensation Psychological: Normal affect Diagnostic/Tx/Re-eval - Medical Decision Making Patient is evaluated for persistent upper respiratory symptoms including cough. She is not had any progression of her symptoms. She had blood work and chest x-ray 2 days ago. Patient has normal vital signs is not hypoxic. Patient only came in at the insistence of the [place] tele-doc. Did discuss with her surgical scrub technologist is very familiar with her and has been treating her. He feels that this is chronic and she does not require admission or further work-up. I am agreeable with this especially given her well-appearing physical exam and vital signs. Patient is already on optimal treatment including Tessalon Perles, prednisone and albuterol. I do not think have any medications to add. She will follow-up with pulmonology next week. Patient is counseled on signs symptoms require return the emergency room. She will continue to self quarantine at home. ED Disposition - Plan for ED Patient: Disposition: Home or Assisted Living Diagnosis: Cough, Viral respiratory illness Instructions: ED REACTIVE AIRWAY DISEASE Adult Referrals: Mojgan Cintron MD [Primary Care Provider] - Alex Soares MD [STAFF PHYSICIAN] -
[2019-12-07 21:46] VITALS: RESP 18
== END 2019-12-07 21:47 | disposition home or self-care (01) ==
PROVIDERS: Emergency Provider Emergency Medicine; PCP Internal Medicine
DX: R05 Cough (principal); B34.9 Viral infection, unspecified; E06.3 Autoimmune thyroiditis; I73.00 Raynaud's syndrome without gangrene; Z88.1 Allergy status to other antibiotic agents
CPT/HCPCS: 99282

== ENCOUNTER 2020-07-21 20:34 | Emergency (ER) | payer OTHER, BC, SELFPAY ==
[2020-03-03 14:10] VITALS: BMI 32.3
[2020-07-21 20:34] VITALS: BP 142/94; PULSE 90; RESP 20; TEMP 36.3; O2SAT 100; BMI 30.7
--- NOTE | 2020-07-21 20:53 | EKG12_ITS ---
Test Reason : CP Blood Pressure : / mmHG Vent. Rate : 082 BPM Atrial Rate : 082 BPM P-R Int : 148 ms QRS Dur : 096 ms QT Int : 398 ms P-R-T Axes : 055 017 008 degrees QTc Int : 464 ms Normal sinus rhythm Normal ECG Confirmed by SOLA CHRISTINA, BRANDT ([id number]), technical writer and editor ALIZE FAJARDO ([id number]) on 07/23/2020 8:45:02 AM Referred By: ZAIDA Confirmed By:BRANDT SELBY MD
[2020-07-21 21:04] LABS: Absolute Neutrophil Count 3.8 X10^3/uL (2.0-7.7); Basophil# 0.05 X10^3/uL; Basophil% 0.7 % (0-1); Eosinophil# 0.21 X10^3/uL; Eosinophils% 3.1 % (0-5); Hematocrit 38.8 % (37-47); Hemoglobin 12.8 g/dL (12.0-15.0); Lymphocyte % 29.6 % (19-41); Mean Corpuscular Hgb 28.5 pg (27.0-32.0); Mean Corpuscular Volume 86.4 fL (81-99); Mean Platelet Vol. 11.5 fl (6.2-12.0); Monocyte# 0.64 X10^3/uL; Monocyte% 9.5 % (0-10); NRBC Flagged by Analyzer 0 % (0-5); Neutrophil # 3.83 X10^3/uL (2.7-7.7); Neutrophil % 56.7 % (47-70); Platelet Count 218 K/mm3 (150-450); RBC Distribution Width CV 12.9 % (11.6-14.6); RBC Distribution Width SD 40.3 fl (35.1-43.9); Red Blood Count 4.49 M/mm3 (4.2-5.4); White Blood Count 6.8 K/mm3 (4.4-11.0)
[2020-07-21] MEDS: 0.9% Normal Saline 1,000 ML 1000 ML IV (21:04)
[2020-07-21] MEDS: Aspirin 81 MG TAB.CHEW 324 MG PO (21:04)
[2020-07-21 21:21] LABS: Anion Gap 8 (5-15); BUN 13 mg/dL (7-18); BUN/Creat Ratio 14.1 RATIO (10-20); Calcium,Total 8.5 mg/dL (8.5-10.1); Chloride 111 mmol/L (98-107); Creatinine, Serum 0.92 mg/dL (0.55-1.02); EST Glomerular Filtration Rate 70 mL/min (>60); Est Glom Filt Rate - Afr Amer 84 mL/min (>60); Estimated Creatinine Clearance 68.75 ml/min; Glucose 104 mg/dL (74-106); Potassium 3.3 mmol/L (3.5-5.1); Sodium Level 143 mmol/L (136-145)
--- NOTE | 2020-07-21 21:25 | RAD_ITS ---
STUDY: X-RAY CHEST REASON FOR EXAM: Female, 44 years old. CHEST PAIN, SHORTNESS OF BREATH. UNDERGOING EVALUATION FOR ABN EKG. TECHNIQUE: Single frontal view of the chest. COMPARISON: 12/05/2019. FINDINGS: The lungs are clear and expanded. There is no demonstrated pleural abnormality. There is a device projecting over the left hemithorax. Normal size heart. Normal mediastinum and meghan. Normal visualized pulmonary arteries. Normal visualized aortic arch and descending thoracic aorta. Normal visualized thoracic spine. Normal visualized ribs, clavicles, and shoulders. There is no demonstrated abnormality of the visualized soft tissue structures of the upper abdomen. RAD/Chest 1 View (Portable) IMPRESSION: No acute cardiopulmonary process. Electronically Signed: Mary Alvarado MD at 22:23 EST Tel , Service support ,
--- NOTE | 2020-07-21 22:01 | ED.VISSUMM ---
- ER Visit Summary Date of Service: 07/21/20 Chief Complaint: Chest pain History of Present Illness: The patient is a 44 F who presents with chest pain. This started 6 hours ago when she was exercising. She describes as a pressure and tightness. Is in her substernal region. Nothing seems to make it better or worse. She did feel nausea and shortness of breath with this. Her lips tongue and left hand became numb and tingly. She thought she was having allergic reaction but did not use her EpiPen. She was dizzy at the time. She has a history of a prolonged QTC which is being evaluated by cardiology. They took her off of some of her lupus medications and it is actually improving. No history of cardiac disease. Physical Examination: Vital signs reviewed. HEENT exam unremarkable. Heart is regular rate and rhythm without murmurs. Lungs are clear to auscultation. Abdomen is soft and nontender. Extremities reveal no edema. Peripheral pulses are equal. Skin exam normal. Neurologic exam normal. Test Results: EKG is sinus rhythm with rate of 82. No ST changes. QTc 464. Chest x-ray per my interpretation is unremarkable. Laboratory studies are unremarkable aside for potassium of 3.3 Emergency Department Course and Treatment: Patient was given aspirin. I do not see any acute causes for her symptoms. Her QTC is actually improved as she says it was over 500 at 1 point. I do not feel this was a cause of any of her symptoms. Patient will be discharged to follow-up with cardiology. Treatment Plan: [] Disposition: Discharge Impression: Chest pain This note was generated with [employer] (formerly [employer]) dictation software. It may contain incorrect words, spelling, and punctuation that were not noted in review of the chart prior to signing ED Disposition - Plan for ED Patient: Disposition: Home or Assisted Living Instructions: ED Chest Pain NonCardiac Referrals: Mojgan Cintron MD [Primary Care Provider] -
[2020-07-21 22:13] VITALS: BP 146/83; PULSE 84; RESP 16; O2SAT 99
== END 2020-07-21 22:15 | disposition home or self-care (01) ==
PROVIDERS: Emergency Provider Emergency Medicine; PCP Internal Medicine
DX: R07.9 Chest pain, unspecified (principal); M32.9 Systemic lupus erythematosus, unspecified; R11.0 Nausea; R42 Dizziness and giddiness; R06.02 Shortness of breath
CPT/HCPCS: 71045; 80048; 84484; 85025; 93005; 96360; 99285; J7030; A4216

== ENCOUNTER 2020-07-30 20:41 | Emergency (ER) | payer OTHER, BC, SELFPAY ==
[2020-07-30 20:42] VITALS: BP 137/91; PULSE 86; RESP 18; TEMP 35.5; O2SAT 100; BMI 32.1
--- NOTE | 2020-07-30 21:01 | EKG12_ITS ---
Test Reason : SOB Blood Pressure : / mmHG Vent. Rate : 074 BPM Atrial Rate : 074 BPM P-R Int : 148 ms QRS Dur : 086 ms QT Int : 424 ms P-R-T Axes : 042 020 012 degrees QTc Int : 470 ms Normal sinus rhythm Normal ECG Confirmed by IVETTE CHRISTINA, EDIL ([id number]), proposal editor ALIZE FAJARDO ([id number]) on 08/04/2020 9:33:05 A M Referred By: Confirmed By:ODESSA STEELE MD
--- NOTE | 2020-07-30 21:02 | CT_ITS ---
STUDY: CTA CHEST REASON FOR EXAM: Female, 44 years old. COUGH, SOB X 1 WK, LAZO,H/O PES, ASTHMA RADIATION DOSAGE (If Supplied By Facility): CTDIvol = ( 9.13 ) mGy, DLP = ( 375.15 ) mGycm TECHNIQUE: The examination was performed with the intravenous administration of IV 100mL Isovue-370. Post-processing of the angiographic images was performed, with multiplanar reformation and 3D reconstruction. Individualized dose optimization techniques were used for this CT. COMPARISON: Chest x-ray dated July 21, 2020 FINDINGS: Reidentification of small electronic device overlying the left chest. Normal enhancement of the main pulmonary artery and right and left pulmonary arteries. Normal enhancement of the bilateral peripheral pulmonary arteries. There is no demonstrated pulmonary embolism. Normal thoracic aorta and visualized great vessels. There is no demonstrated aortic dissection. Normal heart size and pericardium. Normal mediastinum. Normal hilar regions. Normal visualized trachea and bronchi. The lungs are well expanded. Normal pulmonary parenchyma. No consolidation or pulmonary edema or pleural effusion. No nodules are present. Normal pleura. Normal chest wall structures. There are degenerative changes of thoracic spine. No demonstrated acute or significant process of the upper abdomen. Mildly enlarged fatty liver. CT/CTA Chest W/WO Contrast IMPRESSION: 1. No demonstrated pulmonary embolism or arterial dissection. 2. No consolidation or pulmonary edema or pleural effusion. No nodules are present. Electronically Signed: Jeremy Rosen MD at 22:55 EST , Service support ,
[2020-07-30 21:44] LABS: Absolute Lymphocyte Count 2.28 X10^3/uL (0.83-4.51); Absolute Neutrophil Count 3.8 X10^3/uL (2.0-7.7); Basophil# 0.07 X10^3/uL; Eosinophil# 0.18 X10^3/uL; Eosinophils% 2.6 % (0-5); Hematocrit 41.4 % (37-47); Hemoglobin 13.7 g/dL (12.0-15.0); Lymphocyte # 2.28 X10^3/ul (4.0); Lymphocyte % 32.5 % (19-41); Mean Corp Hgb Conc 33.1 g/dL (32-36); Mean Corpuscular Hgb 28.8 pg (27.0-32.0); Mean Platelet Vol. 11.5 fl (6.2-12.0); Monocyte# 0.67 X10^3/uL; Monocyte% 9.5 % (0-10); NRBC Flagged by Analyzer 0 % (0-5); Neutrophil % 54.1 % (47-70); Platelet Count 219 K/mm3 (150-450); RBC Distribution Width CV 12.7 % (11.6-14.6); RBC Distribution Width SD 40.2 fl (35.1-43.9); Red Blood Count 4.76 M/mm3 (4.2-5.4)
[2020-07-30 22:00] LABS: AST(SGOT) 25 U/L (15-37); Alanine Aminotransfer ALT/SGPT 50 U/L (13-56); Albumin, Serum 3.7 g/dL (3.2-5.0); Alkaline Phosphatase 92 U/L (45-117); Anion Gap 4 (5-15); BUN 9 mg/dL (7-18); BUN/Creat Ratio 9.3 RATIO (10-20); Calcium,Total 8.5 mg/dL (8.5-10.1); Chloride 114 mmol/L (98-107); Creatinine, Serum 0.97 mg/dL (0.55-1.02); EST Glomerular Filtration Rate 66 mL/min (>60); Est Glom Filt Rate - Afr Amer 79 mL/min (>60); Estimated Creatinine Clearance 65.21 ml/min; Globulin 3.7 g/dL (2.2-4.2); Glucose 91 mg/dL (74-106); Potassium 3.6 mmol/L (3.5-5.1); Protein, Total 7.4 g/dL (6.4-8.2); Sodium Level 140 mmol/L (136-145)
--- NOTE | 2020-07-30 22:33 | ED.VISSUMM ---
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 Who reports that she has a cough began approximately 1 week ago. Is nonproductive. She reports that she has had constant chest pain for the past 1 to 2 weeks. She is currently being investigated for this with an event monitor through the [place]. She reports that she has shortness of breath is worse with exertion or coughing. It is improved with her inhaler. Patient states that she was taken off the medications for her lupus earlier this year because her QT was prolonged. Her umbrella frame maker states that she can be placed back on any other medications until her QT is more normal and she is cleared by cardiology. Patient denies any sick contacts. It sounds as though she wears her mask inconsistently. Physical Examination: Vitals: Stable. Afebrile. General: Well-nourished and well-developed. Head: Normocephalic atraumatic. Neck: Supple, no lymphadenopathy. No JVD. Nontender. Cardiovascular: Regular rate and rhythm. No murmurs. Respiratory: No respiratory distress. Clear to auscultation bilaterally. Abdominal: Soft, nontender, nondistended, normal bowel sounds. No guarding, rebound, or peritoneal signs. Back: Nontender. Extremities: Nontender, no edema. Skin: Normal color, no rash. Neurologic: Alert and oriented ?3. Cranial nerves II through XII are intact. Normal strength and sensation. Psych: Normal affect. Test Results: EKG is sinus at 74 with a QTC of 470. Is unchanged from the ninth of this month. Her QTC then was 464. Her troponin is negative. Influenza is negative. LFTs are normal. Chem-7 shows a chloride of 114. CBC is normal. COVID-19 was sent. CTA of the chest is pending. Emergency Department Course and Treatment: Patient was given a dose of Solu-Medrol IV. She is resting comfortably. She is not hypoxic. Treatment Plan: As the patient cannot take any other medications for her lupus and that may be a component of this she will be discharged on 2 weeks of prednisone. The oncoming physician will check on the CTA of her chest. If this shows any abnormality the patient does understand the plan may change. Follow-up with her computer lab aide and/or primary care physician in 1 to 2 days if not improving. Return to the emergency department for any worsening symptoms. Disposition: To home in improved and stable condition. Impression: 1. Dyspnea. 2. Systemic lupus erythematosus. This note was generated with Intacct dictation software. It may contain incorrect words, spelling, and punctuation that were not noted in review of the chart prior to signing ED Disposition - Plan for ED Patient: Instructions: ED Upper Resp Infec No Abx Tx Prescriptions: Prednisone 10 mg PO DAILY #63 tablet Referrals: Mojgan Cintron MD [Primary Care Provider] - 1-2 Days if not improving Alex Soares MD [STAFF PHYSICIAN] - 1-2 Days if not improving
[2020-07-30] MEDS: MethylPREDNISolone 125 MG/2 ML Vial IV (22:35)
[2020-07-31 00:24] VITALS: BP 111/66; PULSE 77; RESP 18; O2SAT 99
== END 2020-07-31 00:25 | disposition home or self-care (01) ==
LOC: ED 21:04
PROVIDERS: Emergency Provider Emergency Medicine; PCP Internal Medicine
DX: R06.00 Dyspnea, unspecified (principal); R07.9 Chest pain, unspecified; R05 Cough; R51.9 Headache, unspecified; M32.9 Systemic lupus erythematosus, unspecified; E78.00 Pure hypercholesterolemia, unspecified; J45.909 Unspecified asthma, uncomplicated; Z86.718 Personal history of other venous thrombosis and embolism
CPT/HCPCS: 71275; 80053; 84484; 85025; 87635; 87804; 93005; 99284; Q9967; A4216; U0003

== ENCOUNTER → 2021-04-07 14:08 | Outpatient (CLI) | payer OTHER, BC, SELFPAY ==
[2021-01-29 14:07] VITALS: BMI 32.3
[2021-02-19 09:02] VITALS: BMI 31.9
--- NOTE | 2021-04-07 14:26 | US_ITS ---
STUDY: ULTRASOUND BREAST - RIGHT REASON FOR EXAM: Female, 45 years old. Palpable lump in the right breast. TECHNIQUE: Axial and longitudinal images of the RIGHT breast were performed with a high resolution ultrasound transducer. # OF IMAGES: 14 COMPARISON: Comparison is made with prior examination dated 11/18/2020. FINDINGS: RIGHT Breast: The palpable abnormality corresponds to a 1.4 cm x 1.3 cm x 0.6 cm hypoechoic slightly lobular nodule at the 10 o''clock position of the breast at 5 cm from nipple. This is unchanged. This most likely represents a fibroadenoma. US/Breast Limited Unilateral IMPRESSION: Stable 1.4 cm x 1.3 cm x 0.6 cm hypoechoic slightly lobular nodule at the 10 o''clock position of the breast as described. ASSESSMENT CATEGORY: BIRADS Category 2: Benign. A letter regarding these results will be sent to the patient by the facility within 30 days. Electronically Signed: Tito Sanchez MD at 20:43 EDT , Service support ,
--- NOTE | 2021-04-07 14:26 | BI_ITS ---
MAMMOGRAPHY - UNILATERAL DIAGNOSTIC: RIGHT BREAST REASON FOR EXAM: Female, 45 years old. History of right breast fibroadenoma. Six-month follow-up could PERTINENT HISTORY: Non-contributory. TECHNIQUE: Digital unilateral breast jared (3D mammographic acquisition) in the CC and MLO projections. 2-D mediolateral oblique (MLO) and craniocaudad (CC) views of both breasts were obtained. CAD: Full Field Digital Mammography with Computer Added Detection was performed. COMPARISON: Comparison is made with prior examination dated 11/04/2020. FINDINGS: Breast Composition: The breasts are heterogeneously dense, which may obscure small masses. There is a 1 cm x 1 cm nodule in the deep upper lateral aspect of the right breast. Correlation with ultrasound is recommended. No other significant abnormalities are identified. BI/DIAG MAMM W/CAD, UNILAT IMPRESSION: 1 cm x 1 cm nodule in the deep upper lateral aspect of the right breast. Correlation with ultrasound is recommended. ASSESSMENT CATEGORY: BIRADS Category 0: Incomplete. Need additional imaging evaluation. A letter regarding these results will be sent to the patient by the facility within 30 days. Approximately 10% of breast cancers are not detected by mammography. A normal mammogram should not delay biopsy of a clinically suspicious abnormality. Electronically Signed: Tito Sanchez MD at 15:32 EDT , Service support ,
== END ==
PROVIDERS: PCP Internal Medicine; Referring Provider Internal Medicine
DX: N63.11 Unspecified lump in the right breast, upper outer quadrant (principal)
CPT/HCPCS: 76642; 77061; 77065; G0279

== ENCOUNTER 2021-09-09 09:44 | Outpatient (CLI) | payer BC, SELFPAY ==
[2021-09-09 10:07] VITALS: BP 145/84; PULSE 83; RESP 20; TEMP 36.6; O2SAT 100; BMI 29.1
[2021-09-09] MEDS: 0.9% Saline Lock 10 ML Syringe IV ×2 (10:11→11:16)
[2021-09-09 10:55] VITALS: BP 142/87; PULSE 80; RESP 18; TEMP 37; O2SAT 100
[2021-09-09] MEDS: MethylPREDNISolone 125 MG/2 ML Vial IV (11:16)
--- NOTE | 2021-09-09 11:18 | NURSING ---
Pt c/o mild itching to bilateral arms/face. No rash, redness, or hives noted. Pt medicated w/ solumedrol.
--- NOTE | 2021-09-09 11:35 | NURSING ---
Pt reports itching is gone.
[2021-09-09 11:55] VITALS: BP 123/79; PULSE 81; RESP 16; TEMP 36.8; O2SAT 100
== END 2021-09-09 11:55 | disposition home or self-care (01) ==
LOC: MS3OUT 09:45 → MS3 09:46
PROVIDERS: PCP Internal Medicine; Referring Provider Nurse Practitioner Adult Health; Visit Provider Nurse Practitioner Adult Health
DX: Z23 Encounter for immunization (principal); U07.1 COVID-19
CPT/HCPCS: J7050; M0245; Q0245; A4216

== ENCOUNTER 2021-10-13 09:49 | Outpatient (CLI) | payer OTHER, SELFPAY ==
--- NOTE | 2021-10-13 10:04 | MRI_ITS ---
STUDY: BILATERAL BREAST MR WITHOUT AND WITH CONTRAST REASON FOR EXAM: Female, 46 years old. Lesion in right breast most compatible with fibroadenoma. No documentation of biopsy confirmation of this lesion is included. TECHNIQUE: Multi-sequence multi-echo imaging of both breasts was performed with a dedicated breast coil. T1-weighted and T2-weighted images were performed before the administration of contrast. T1-weighted images were also performed after the administration of 16 ml of Dotarem contrast without complications. COMPARISON: Prior screening mammogram dated 12/13/2018, and diagnostic right mammogram dated 04/07/2021. Right breast ultrasound dated 04/07/2021. FINDINGS: RIGHT BREAST: The breast tissue is scattered fibroglandular densities with minimal background enhancement. In the upper outer quadrant of the right breast at approximately the 10 o''clock position there is a lobulated enhancing mass measuring 12 mm x 9 mm x 10 mm. This lesion corresponds to the lesion identified on the right breast ultrasound dated 04/07/2021. The size of this lesion is similar report was present at that time. This lesion is most compatible with a fibroadenoma. Medullary or colloid cancers may have a similar appearance. Therefore, ultrasound-guided biopsy of this mass for histologic confirmation would be appropriate. LEFT BREAST: The breast tissue is scattered fibroglandular densities with minimal background enhancement. There are no abnormal enhancing masses or areas of non-mass enhancement in the left breast. There are no enlarged or abnormal lymph nodes. There is no abnormality in the visualized regions of the chest or liver. MRI/Breast Bilateral W/O and W IMPRESSION: Lobular enhancing mass in the upper outer quadrant of the right breast. Ultrasound-guided biopsy of this mass for histologic confirmation would be appropriate, as outlined above. CATEGORY: BIRADS Category 4: Suspicious - Biopsy Should Be Considered. A letter regarding these results will be sent to the patient by the facility within 30 days. Electronically Signed: Simone Murphy MD at 10:12 EST ,
[2021-10-13 10:24] LABS: Albumin, Serum 3.9 g/dL (3.2-5.0); BUN 11 mg/dL (7-18); BUN/Creat Ratio 10.6 RATIO (10-20); Calcium,Total 8.7 mg/dL (8.5-10.1); Chloride 110 mmol/L (98-107); Creatinine, Serum 1.04 mg/dL (0.55-1.02); EST Glomerular Filtration Rate 60 mL/min (>60); Est Glom Filt Rate - Afr Amer 73 mL/min (>60); Glucose 113 mg/dL (74-106); Phosphorus 2.8 mg/dL (2.5-4.9); Potassium 4.5 mmol/L (3.5-5.1); Sodium Level 140 mmol/L (136-145)
== END 2021-10-13 23:59 | disposition home or self-care (01) ==
PROVIDERS: PCP Internal Medicine; Visit Provider Nurse Practitioner Women's Health
DX: N63.11 Unspecified lump in the right breast, upper outer quadrant (principal)
CPT/HCPCS: 36415; 77049; 80069; A9575; A4216; C8908

== ENCOUNTER 2021-12-10 09:16 | Outpatient (CLI) | payer OTHER, SELFPAY ==
--- NOTE | 2021-12-10 09:43 | US_ITS ---
ULTRASOUND GUIDED CORE BIOPSY REASON FOR EXAM: Female, 46 years old. Right breast mass PERTINENT HISTORY: Suspicious right breast nodule. COMPARISON: None. Under direct sonographic guidance, a decision perform core biopsies of the 1.5 cm x 1.1 cm by 0.6 cm solid nodule at the 10 o''clock position of the breast at 5 sinus on the US/US Breast Biopsy 1st Lesion IMPRESSION: Ultrasound guided core biopsy of a mass in the RIGHT breast at 10 o''clock position of the breast at 5 cm from nipple. without complication. Electronically Signed: Tito Sanchez MD at 11:21 EDT ,
--- NOTE | 2021-12-10 10:10 | BRBX_PTH ---
PATIENT: SUSHIL OLMOS LOC: [facility] U#:[id number] AGE/SX: 46/F ROOM: RE12/10/[address]: Dr. Sofiya Rios MD : 1975 BED: DIS: 12/10/2021 SPEC #: [id number] RECD: 12/10/21 10:54 STATUS: SANDRO REQ #: [id number] DEMETRI: 12/10/21 10:[address]: Sofiya Rios DEPT: SURGICAL PATHOLOGY RECD BY: Archana Lesetr ENTERED: 12/10/21 11:26 SP TYPE: BREAST BX OTHR DR: Dr. Mojgan Cintron MD Tissues: Right breast, NOS Procedures: Surgery Specimen Level IV HEADER OPERATION: Ultrasound-guided right breast biopsy PRE-OP DIAGNOSIS: Right breast mass, possible fibroadenoma TISSUE SUBMITTED: Right breast mass 10 o?clock, 5 cm from nipple ISCHEMIC TIME: 2 minutes FIXATION TIME: 9.5 hours MICROSCOPIC DIAGNOSIS Right breast mass, 10 o?clock, 5 cm from nipple, ultrasound-guided core biopsy: Fibroadenoma. Negative for atypia or malignancy. See comment. JENNIFER:kike 12/11/2021 COMMENT Correlation with clinical, radiologic findings and appropriate follow up are necessary. MICROSCOPIC DESCRIPTION Slides are reviewed. GROSS DESCRIPTION Received in fixative is one container labeled with the patient's name and designated right breast. The specimen consists of multiple elongated fragments of alexandre-yellow fibroadipose tissue that in aggregate measure 1 x 0.5 x 0.1 cm. The entire specimen is submitted in one cassette. / JENNIFER:kike 12/10/2021 TC:1 CPT: 27827
--- NOTE | 2021-12-10 10:21 | PCM.OPRPT ---
Report of Operation Date of Procedure: 12/10/21 Pre-Operative Diagnosis: Right breast mass Post-Operative Diagnosis: Right breast mass Surgery/Procedure Performed:: Ultrasound-guided right breast core biopsy?10:00 5 cm from the nipple Surgeon: Sofiya Rios Type of Anesthesia: Local Specimen's removed: Right breast mass 10:00 5 cm from the nipple Estimated Blood Loss (mL): < 5 cc Description of Procedure: Procedure: ultrasound-guided core biopsy Indications: 46 year-old female with hypoechoic nodule at 10:00 in the right breast 5 centimeters from the nipple. Risk benefits were discussed the patient and she elected to proceed with ultrasound guided core biopsy with clip placement Description of procedure: Patient was brought into the ultrasound room in the right breast was marked. A timeout was completed verifying correct patient, procedure, site, specially, prior to beginning procedure. The right breast was prepped and draped in usual sterile fashion and using local anesthesia was obtained with 1% lidocaine with epi. The lesion was located with the ultrasound. Small incision was made with 11 blade to introduced the BARD MaxCore through the skin. Under ultrasound guidance multiple core samples were obtained using then 14-gauge BARD MaxCore and sent in formalin for pathology. The Bard dual ultra?ribbon clip was then deployed into the biopsy cavity under ultrasound guidance and a picture was taken. Upon completion procedure hemostasis was obtained and a Steri-Strip and OpSite were placed. Patient was then taken to the mammography suite for clip verification. The clip was verified. The patient tolerated the procedure well and was discharged from the breast imaging department good condition. Complications none
== END 2021-12-10 23:59 | disposition home or self-care (01) ==
PROVIDERS: PCP Internal Medicine; Visit Provider Surgery
DX: D24.1 Benign neoplasm of right breast (principal)
CPT/HCPCS: 19083; 88305

== ENCOUNTER → 2022-07-09 | Outpatient (CLI) | payer BC, SELFPAY ==
[2022-07-09 10:14] LABS: Mucous, Urine 0 SEEN /hpf (<or=2+)
[2022-07-09 10:59] LABS: Color, Urine Yellow (Yellow); Glucose, Dipstick Normal (Normal); Ketone-Dipstick 5 mg/dl (Negative); Leukocyte Esterase-Dipstick 500 /ul (Negative); Nitrite-Dipstick Negative (Negative); Occult Blood-Urine 10 /ul (Negative); Protein-Dipstick Negative (Negative); Specific Gravity, Urine 1.025 (1.002-1.030); Urine Bilirubin Dipstick Negative (Negative); Urine Clarity Clear (Clear); Urine Urobilinogen Normal (Normal)
[2022-07-09 11:15] LABS: Bacteria 1+ /hpf (None Seen); Calcium Oxalate Crystals Ur 1+ /hpf (<or=2+); Red Blood Cells-Urine 0-5 SEEN /hpf (0-5); Squamous Epithelial Cells - UA 0-5 SEEN /hpf (5-10); White Blood Cells 50-100 SEEN /hpf (0-5)
== END | disposition home or self-care (01) ==
LOC: LABSPEC 09:42
PROVIDERS: PCP Internal Medicine; Visit Provider Physician Assistant Surgical
DX: N39.0 Urinary tract infection, site not specified (principal)
CPT/HCPCS: 81001; 87086

== ENCOUNTER → 2022-07-27 | Outpatient (CLI) | payer BC, SELFPAY ==
[2022-07-27 16:56] LABS: Absolute Lymphocyte Count 2.21 X10^3/uL (0.83-4.51); Absolute Neutrophil Count 3.7 X10^3/uL (2.0-7.7); Basophil# 0.06 X10^3/uL; Basophil% 0.9 % (0-1); Eosinophil# 0.12 X10^3/uL; Eosinophils% 1.8 % (0-5); Hematocrit 41.7 % (37-47); Hemoglobin 13.8 g/dL (12.0-15.0); Lymphocyte # 2.21 X10^3/ul (0.83-4.51); Lymphocyte % 33.4 % (19-41); Mean Corp Hgb Conc 33.1 g/dL (32-36); Mean Corpuscular Hgb 29.4 pg (27.0-32.0); Mean Corpuscular Volume 88.7 fL (81-99); Mean Platelet Vol. 11.3 fl (6.2-12.0); Monocyte# 0.51 X10^3/uL; Monocyte% 7.7 % (0-10); NRBC Flagged by Analyzer 0 % (0-5); Neutrophil # 3.71 X10^3/uL (2.7-7.7); Platelet Count 240 K/mm3 (150-450); RBC Distribution Width CV 12.3 % (11.6-14.6); RBC Distribution Width SD 40.3 fl (35.1-43.9); White Blood Count 6.6 K/mm3 (4.4-11.0)
[2022-07-27 18:00] LABS: AST(SGOT) 15 U/L (15-37); Alanine Aminotransfer ALT/SGPT 30 U/L (13-56); Albumin, Serum 3.8 g/dL (3.2-5.0); Alkaline Phosphatase 74 U/L (45-117); Anion Gap 8 (5-15); BUN 15 mg/dL (7-18); BUN/Creat Ratio 15.4 RATIO (10-20); Calcium,Total 8.8 mg/dL (8.5-10.1); Chloride 110 mmol/L (98-107); Creatinine, Serum 0.97 mg/dL (0.55-1.02); EST Glomerular Filtration Rate 65 mL/min (>60); Est Glom Filt Rate - Afr Amer 78 mL/min (>60); Globulin 3.7 g/dL (2.2-4.2); Glucose 98 mg/dL (74-106); Potassium 3.7 mmol/L (3.5-5.1); Protein, Total 7.5 g/dL (6.4-8.2); Sodium Level 140 mmol/L (136-145); Thyroid Stim Hormone (TSH) 0.84 uIU/mL (0.358-3.74)
== END | disposition home or self-care (01) ==
LOC: BIMLAB 16:19
PROVIDERS: PCP Internal Medicine; Referring Provider Nurse Practitioner Family; Visit Provider Nurse Practitioner Family
DX: Z01.818 Encounter for other preprocedural examination (principal)
CPT/HCPCS: 36415; 80053; 84443; 85025

== ENCOUNTER → 2022-07-29 | Outpatient (CLI) | payer BC, SELFPAY | END | disposition home or self-care (01) | LOC: PSN 15:58 | PROVIDERS: PCP Internal Medicine; Referring Provider Nurse Practitioner Family; Visit Provider Nurse Practitioner Family | DX: Z01.818 Encounter for other preprocedural examination (principal) | CPT/HCPCS: 93005 ==

== ENCOUNTER 2022-09-09 12:00 | Outpatient (RCR) | payer BC, OTHER, SELFPAY ==
--- NOTE | 2022-08-16 08:55 | HP.PTEVAL ---
Patient's Visit Information SUSHIL OLMOS is a 46 year old F referred to Physical Therapy by ANDREW BACON with a diagnosis of R RTC repair and SAD. Date of Evaluation: 08/12/22 Physical Therapist: Zafar Keita DPT - Visit Plan Frequency: 3x /Week Duration: 8 weeks Plan: Start with phase I PROM of R shoulder. I added pendulums, standing walk aways to HEP. PRogress per protocol using Dr. Ortiz's medium RTC protcol. May use ice/ifc for pain control. - Subjective Pt. is here today for her initial evaluation with diagnosis of R incomplete rotator cuff tear with repair and SAD. DOS: 08/03/22. Pt. arrives with sling and pillow on. Pt. reports overall doing okay, but still very sore. Pt. has been having some trouble with sleeping, but is slightly getting better. Pt. denies N/T. Pt. reports overall doing okay. She is to follow up with physician on Sep 15. Pt. has been following sling use and slight elbow flexion as tolerated. PMH: lupus, cancer (skin), previous knee surgery. Pt. is hopeful to get back to all recreational activities including rowing, biking, etc. She did have a heart issue post covid which has also limited her ability to do some activities due to tachycardia. Pt. is hopeful to get back to all previous activities without limitations. - Pain R shoulder Pain Intensity (Out of 10): 5 Pain Intensity Range: 3, 8 - Objective POSTURE: Pt. has R arm in guarded posture at side with shoulder elevated untill VCing to reduce. PALPATION: Pt. has well healing incision without signs of infection. Pt. has tenderness throughout R shoulder and shoulder blade regions. NEURO: Pt. has normal sensation throughout BUEs. ROM: L shoulder: full ROM with no issues iwth passive over pressure. R shoulder PROM: flexion 90deg increase NW, ER 20deg increase NW, IR at 30deg of abd 30deg increase NW. ELBOW: full active ROM. MMT: LUE: 5/5 throughout. RUE: DNT. - Balance/Special Test Scores Quick DASH Score: 63.6350 - Goals Goal 1:: LTG: Pt. to be I with HEP for both passive and AAROM of R shoulder. Goal Time Frame: 4-6 Weeks Goal 2:: STG: Pt. to be able to sleep throughout the night without increase in symptoms. Goal Time Frame: 2 Weeks Goal 3:: STG: Pt. to have increased PROM to at least 90% of L shoulder. Goal Time Frame: 2-4 Weeks Goal 4:: LTG: Pt. to have full R shoulder AROM without increase in symptoms. Goal Time Frame: 4-6 Weeks Goal 5:: LTG: Pt. to have at least 4+/5 strength throughout R scapular and periscapular musculature. Goal Time Frame: 6-8 Weeks - Rehabilitation Potential Physical Therapy Diagnosis: Pt. has signs and symptoms consistent with R RTC repair with SAD. Pt. has marked hypomobility and increased pain. Pt. would benefit from initial ROM progression into all ranges gradually. Then progressing active eventually to strengthening. Following protocol. Rehabilitation Potential: Excellent - Anticipated Interventions Patient/Client Instruction: Educate patient on: Condition, Plan of Care, Risk Factors, Benefits of Fitness Program For the Purpose of:: To improve decision making, To facilitate caregiver knowledge, To improve self management, To prevent re-injury, To improve ability to perform tasks related to life management, To improve tolerance to ADL's Therapeutic Exercise to Include: Strength training, Power training, Postural training, Flexibilty training, Passive ROM, Active ROM, Scapular Strength/Stabilization For the Purpose of:: To decrease pain, To decrease swelling/inflammation, To increase ROM, To improve nutrient delivery to tissue, To increase oxygenation perfusion, To improve muscle performance and motor function, To improve ability to perform ADL's, To increase tolerance to activity/condition/position, To improve ability of physical actions for home/community/work/leisure, To improve health of tissue, To decrease soft tissue restriction IF ES: Yes Cryotherapy (ice pack, ice massage): Yes Thermo therapy (hot pack): Yes For the Purpose of:: To decrease pain, To decrease swelling/inflammation, To increase ROM, To improve nutrient delivery to tissue Thank you for the opportunity to evaluate your patient. For Medicare and Medicare HMO plans, please review the plan of care and approve it. It will need to be FAXED BACK to us at [phone] for Medicare purposes. For Medicare only, by signing this I certify the plan of care. Please let me know if there are questions or concerns regarding this plan of care. Physician Signature: Date:
--- NOTE | 2022-09-27 08:54 | HP.PT.NRP ---
SUSHIL OLMOS was seen in my office for initial evaluation on 08/12/22. The following Plan of Care was established for this patient: Initial Frequency: 3x /Week Initial Duration: 8 weeks Patient/Client Instruction: Educate patient on: Condition, Plan of Care, Risk Factors, Benefits of Fitness Program For the Purpose of:: To improve decision making, To facilitate caregiver knowledge, To improve self management, To prevent re-injury, To improve ability to perform tasks related to life management, To improve tolerance to ADL's Therapeutic Exercise to Include: Strength training, Power training, Postural training, Flexibilty training, Passive ROM, Active ROM, Scapular Strength/Stabilization For the Purpose of:: To decrease pain, To decrease swelling/inflammation, To increase ROM, To improve nutrient delivery to tissue, To increase oxygenation perfusion, To improve muscle performance and motor function, To improve ability to perform ADL's, To increase tolerance to activity/condition/position, To improve ability of physical actions for home/community/work/leisure, To improve health of tissue, To decrease soft tissue restriction IF ES: Yes Cryotherapy (ice pack, ice massage): Yes Thermo therapy (hot pack): Yes For the Purpose of:: To decrease pain, To decrease swelling/inflammation, To increase ROM, To improve nutrient delivery to tissue This patient was last seen in our office 09/09/22. Pertinent comments regarding their Physical therapy will appear below: Pt. is changing insurances and this chart with be DC'd. At this point I will be discontinuing this patient from physical therapy. I would be happy to see this patient again in the future if found appropriate by the physician. Thank you! Zafar Keita, IAMT Balance/Gait/Functional tests - Balance/Special Test Scores Quick DASH Score: 63.1680
== END 2022-09-09 19:00 | disposition home or self-care (01) ==
LOC: PT 12:00
PROVIDERS: PCP Internal Medicine; Referring Provider Physician Assistant; Visit Provider Physician Assistant
DX: M75.111 Incomplete rotator cuff tear or rupture of right shoulder, not specified as traumatic (principal); M75.41 Impingement syndrome of right shoulder
CPT/HCPCS: 97110; 97140; 97161

== ENCOUNTER → 2022-11-24 | Outpatient (CLI) | payer OTHER, SELFPAY ==
--- NOTE | 2022-11-24 09:00 | BI_ITS ---
MAMMOGRAPHY - BILATERAL DIAGNOSTIC REASON FOR EXAM: Female, 47 years old. Biopsy follow-up PERTINENT HISTORY: No family history, previous right breast biopsy TECHNIQUE: Digital examination. Mediolateral oblique (MLO) and craniocaudad (CC) views of both breasts were obtained. CAD: CAD was performed on this study. COMPARISON: 04/07/2021 FINDINGS: Breast Composition: The breasts are heterogeneously dense, which may obscure small masses. There are no dominant masses or suspicious calcifications. Stable appearance of a nodule in the upper outer quadrant of the right breast which has been previously biopsied as a biopsy clip is noted. No interval change since the previous study is noted. No new suspicious findings No other significant abnormalities are identified. BI/DIAG MAMM W/CAD, BILAT IMPRESSION: Stable bilateral diagnostic mammogram. ASSESSMENT CATEGORY: BIRADS Category 2: Benign. A letter regarding these results will be sent to the patient by the facility within 30 days. FOLLOW UP RECOMMENDATION: Yearly follow up mammogram recommended. (A) Approximately 10% of breast cancers are not detected by mammography. A normal mammogram should not delay biopsy of a clinically suspicious abnormality. Electronically Signed: Krishan Madrid MD at 10:00 EDT ,
== END | disposition home or self-care (01) ==
PROVIDERS: PCP Internal Medicine
DX: R92.8 Other abnormal and inconclusive findings on diagnostic imaging of breast (principal)
CPT/HCPCS: 77062; 77066; G0279

== ENCOUNTER 2022-11-30 10:30 | Outpatient (RCR) | payer OTHER, SELFPAY ==
--- NOTE | 2022-09-27 08:54 | HP.PTEVAL_ITS ---
Patient's Visit Information SUSHIL OLMOS is a 47 year old F referred to Physical Therapy by SHARA BECK with a diagnosis of R SAD and RTC repair, DOS: 08/03/22. Date of Evaluation: 09/27/22 Physical Therapist: Zafar Keita DPT - Visit Plan Frequency: 2x /Week Duration: 6 Weeks Plan: Pt. has progressed to phase II and initiated light phase III of RTC program. Proceed, but cautiously as patient is anxious to progress and may need to hold her back a bit allowing proper healing times. - Subjective Pt. had a switch of insurance. She is being seen for her R RTC repair. DOS: 08/03/22. Pt. arrives with sling and pillow on. Pt. reports overall doing okay, but still very sore. Pt. has been having some trouble with sleeping, but is slightly getting better. Pt. denies N/T. Pt. reports overall doing okay. She is to follow up with physician on Sep 15. Pt. has been following sling use and slight elbow flexion as tolerated. PMH: lupus, cancer (skin), previous knee surgery. Pt. is hopeful to get back to all recreational activities including rowing, biking, etc. She did have a heart issue post covid which has also limited her ability to do some activities due to tachycardia. Pt. is hopeful to get back to all previous activities without limitations. - Pain R shoulder Pain Intensity (Out of 10): 1 Pain Intensity Range: 0, 4 - Objective POSTURE: Pt. has good posture in stance. Pt. has good equal shoulder heights, minimal gaurded posture. PALPATION: pt. has well healed incision. No signs of infection. Pt. has slight tenderness at R UT and lats, and levator scapulae region. Minimal at subacromial space. NEURO: normal. ROM: PROM: flexion 160deg, abd 160deg, ER at side 40deg, IR at 50deg of abd 30deg. AROM: flexion 140deg, abd 135deg, functional ER C1, functional IR L5. MMT: R side not tested (due to recent surgery), but able to move against gravity. L shoulder 5/5 throughout. - Balance/Special Test Scores Quick DASH Score: 27.2725 - Goals Goal 1:: LTG: Pt. to be I with HEP for both passive and AAROM of R shoulder. Goal Time Frame: 4-6 Weeks Goal 2:: STG: Pt. to be able to sleep throughout the night without increase in symptoms. Goal Time Frame: 2 Weeks Goal 3:: STG: Pt. to have full AROM of R shoulder without increase in symptoms. Goal Time Frame: 2-4 Weeks Goal 4:: LTG: Pt. to have full strength of R shoulder without increase in symptoms. Goal Time Frame: 4-6 Weeks Goal 5:: LTG: Pt. to resume all work and recreational activities with out increase in symptoms or limitations of R shoulder. Goal Time Frame: 6-8 Weeks - Rehabilitation Potential Physical Therapy Diagnosis: Pt. is overall doing very well. Her ROM is coming along great, she needs to continue to work on rotational motions and can start progressing AROM. May add in light strengthening, starting with isometrics. Pt. would benefit from PT to progress end range of motion and strengthening in order to progress back to work and recreational activities without limitations. - Anticipated Interventions Patient/Client Instruction: Educate patient on: Condition, Plan of Care, Risk Factors, Benefits of Fitness Program For the Purpose of:: To improve decision making, To facilitate caregiver knowledge, To improve self management, To prevent re-injury, To improve ability to perform tasks related to life management Therapeutic Exercise to Include: Strength training, Power training, Postural training, Flexibilty training, Passive ROM, Active ROM, Brennan Exercises, Scapular Strength/Stabilization For the Purpose of:: To decrease pain, To increase ROM, To improve nutrient delivery to tissue, To increase oxygenation perfusion, To improve muscle performance and motor function, To improve ability to perform ADL's, To increase tolerance to activity/condition/position, To improve performance and independence with ADL's, To decrease soft tissue restriction, To increase fle xibility/ROM Manual Therapy Techniques to Include: Passive ROM For the Purpose of:: To decrease pain, To decrease swelling/inflammation, To increase ROM, To improve health of tissue, To decrease soft tissue restriction, To increase flexibility/ROM Cryotherapy (ice pack, ice massage): Yes Thermo therapy (hot pack): Yes For the Purpose of:: To decrease pain, To decrease swelling/inflammation, To increase ROM, To improve nutrient delivery to tissue, To improve muscle perfor brandt and motor function Thank you for the opportunity to evaluate your patient. For Medicare and Medicare HMO plans, please review the plan of care and approve it. It will need to be FAXED BACK to us at [phone] for Medicare purposes. For Medicare only, by signing this I certify the plan of care. Please let me know if there are questions or concerns regarding this plan of care. Physician Signature: Date:
== END 2022-11-30 19:00 | disposition home or self-care (01) ==
LOC: PT 10:30
PROVIDERS: PCP Internal Medicine; Referring Provider Nurse Practitioner; Visit Provider Nurse Practitioner
DX: M25.511 Pain in right shoulder (principal)
CPT/HCPCS: 97014; 97110; 97164; G0283

== ENCOUNTER → 2023-02-15 | Outpatient (CLI) | payer BC, OTHER, SELFPAY ==
[2023-02-15 17:48] LABS: Mucous, Urine 0 SEEN /hpf (<or=2+); Red Blood Cells-Urine 0 SEEN /hpf (0-5); White Blood Cells 0 SEEN /hpf (0-5)
[2023-02-15 17:56] LABS: Color, Urine Yellow (Yellow); Glucose, Dipstick Normal (Normal); Ketone-Dipstick Negative (Negative); Leukocyte Esterase-Dipstick Negative /ul (Negative); Nitrite-Dipstick Negative (Negative); Occult Blood-Urine Negative /ul (Negative); Protein-Dipstick Negative (Negative); Specific Gravity, Urine 1.015 (1.002-1.030); Urine Bilirubin Dipstick Negative (Negative); Urine Clarity Clear (Clear); Urine Urobilinogen Normal (Normal); Urine pH 6.5 (5.0 - 8.0)
[2023-02-15 18:07] LABS: Bacteria RARE /hpf (None Seen); Squamous Epithelial Cells - UA 0-5 SEEN /hpf (5-10)
== END | disposition home or self-care (01) ==
PROVIDERS: PCP Internal Medicine; Visit Provider Physician Assistant
DX: R35.0 Frequency of micturition (principal)
CPT/HCPCS: 81001; 87086; 87088

== ENCOUNTER → 2023-04-08 | Outpatient (CLI) | payer BC, OTHER, SELFPAY ==
[2023-04-08 10:33] LABS: Erythrocyte Sedimentation Rate < 1 mm/hr (0-30)
[2023-04-08 10:55] LABS: CRP < 2.90 mg/L (0.0-3.0)
[2023-04-11 22:07] LABS: Angiotensin Convert Enzyme 43 U/L (14-82); B. pertussis IgA < 1.0 index (0.0-0.9); B. pertussis IgG 2.09 index (0.00-0.94); B. pertussis IgM < 1.0 index (0.0-0.9); Mycoplasma Pneum AB IgG 903 U/mL (0-99); Mycoplasma pneum. AB IgM < 770 U/mL (0-769)
== END | disposition home or self-care (01) ==
PROVIDERS: PCP Internal Medicine; Referring Provider Internal Medicine Pulmonary Disease; Visit Provider Internal Medicine Pulmonary Disease
DX: R06.00 Dyspnea, unspecified (principal)
CPT/HCPCS: 36415; 82164; 85652; 86140; 86615; 86738

== ENCOUNTER → 2023-04-18 | Outpatient (CLI) | payer BC, SELFPAY ==
[2023-04-18 12:08] LABS: Absolute Lymphocyte Count 2.15 X10^3/uL (0.83-4.51); Absolute Neutrophil Count 5.3 X10^3/uL (2.0-7.7); Basophil# 0.07 X10^3/uL; Basophil% 0.8 % (0-1); Eosinophil# 0.18 X10^3/uL; Eosinophils% 2.1 % (0-5); Hematocrit 40.8 % (37-47); Lymphocyte # 2.15 X10^3/ul (0.83-4.51); Lymphocyte % 25.2 % (19-41); Mean Corp Hgb Conc 31.9 g/dL (32-36); Mean Corpuscular Hgb 29.3 pg (27.0-32.0); Mean Corpuscular Volume 92.1 fL (81-99); Monocyte# 0.83 X10^3/uL; Monocyte% 9.7 % (0-10); NRBC Flagged by Analyzer 0 % (0-5); Neutrophil # 5.25 X10^3/uL (2.7-7.7); Neutrophil % 61.5 % (47-70); Platelet Count 234 K/mm3 (150-450); RBC Distribution Width CV 13.2 % (11.6-14.6); RBC Distribution Width SD 44.4 fl (35.1-43.9); Red Blood Count 4.43 M/mm3 (4.2-5.4); White Blood Count 8.5 K/mm3 (4.4-11.0)
[2023-04-18 13:13] LABS: AST(SGOT) 20 U/L (15-37); Alanine Aminotransfer ALT/SGPT 32 U/L (13-56); Albumin, Serum 3.4 g/dL (3.2-5.0); Alkaline Phosphatase 69 U/L (45-117); Anion Gap 6 (5-15); BUN 13 mg/dL (7-18); BUN/Creat Ratio 13.7 RATIO (10-20); Calcium,Total 8.5 mg/dL (8.5-10.1); Chloride 110 mmol/L (98-107); Creatinine, Serum 0.95 mg/dL (0.55-1.02); EST Glomerular Filtration Rate 67 mL/min (>60); Est Glom Filt Rate - Afr Amer 81 mL/min (>60); Globulin 3.5 g/dL (2.2-4.2); Glucose 104 mg/dL (74-106); Potassium 3.7 mmol/L (3.5-5.1); Protein, Total 6.9 g/dL (6.4-8.2); Sodium Level 140 mmol/L (136-145); Thyroid Stim Hormone (TSH) 0.55 uIU/mL (0.358-3.74)
== END | disposition home or self-care (01) ==
LOC: BIMLAB 10:41
PROVIDERS: PCP Internal Medicine; Referring Provider Internal Medicine; Visit Provider Internal Medicine
DX: E03.9 Hypothyroidism, unspecified (principal)
CPT/HCPCS: 36415; 80053; 84443; 85025

== ENCOUNTER → 2023-11-28 | Outpatient (CLI) | payer OTHER, BC, SELFPAY ==
--- NOTE | 2023-11-28 10:55 | BI_ITS ---
MAMMOGRAPHY - BILATERAL SCREENING REASON FOR EXAM: Female, 48 years old. Routine annual screening examination. PERTINENT HISTORY: Non-contributory. TECHNIQUE: Digital bilateral breast megan (3D mammographic acquisition) in the CC and MLO projections. 2-D mediolateral oblique (MLO) and craniocaudad (CC) views of both breasts were obtained. CAD: Full Field Digital Mammography with Computer Added Detection was performed. COMPARISON: Comparison is made with prior outside examination dated August 04, 2021 and November 24, 2022. FINDINGS: Breast Composition: The breasts are heterogeneously dense, which may obscure small masses. There are no dominant masses or suspicious calcifications. A tissue clip marker is seen in the deep upper lateral aspect of the right breast from prior right breast biopsy. No other significant abnormalities are identified. There has been no significant change since the prior study. BI/SCRN MAMM (CAD)W/MEGAN BILAT IMPRESSION: Stable bilateral screening mammogram. Yearly follow-up mammogram recommended. (A) ASSESSMENT CATEGORY: BIRADS Category 2: Benign. A letter regarding these results will be sent to the patient by the facility within 30 days. Approximately 10% of breast cancers are not detected by mammography. A normal mammogram should not delay biopsy of a clinically suspicious abnormality. [id number] Electronically Signed: Tito Sanchez MD at 12:35 EDT ,
== END | disposition home or self-care (01) ==
PROVIDERS: PCP Internal Medicine
DX: Z12.31 Encounter for screening mammogram for malignant neoplasm of breast (principal)
CPT/HCPCS: 77063; 77067

== ENCOUNTER → 2024-03-22 | Outpatient (CLI) | payer BC, SELFPAY ==
[2024-03-22 15:21] LABS: Absolute Lymphocyte Count 1.55 X10^3/uL (0.83-4.51); Absolute Neutrophil Count 3.9 X10^3/uL (2.0-7.7); Basophil# 0.06 X10^3/uL; Eosinophil# 0.12 X10^3/uL; Hematocrit 43.2 % (37-47); Hemoglobin 14.1 g/dL (12.0-15.0); Lymphocyte # 1.55 X10^3/ul (0.83-4.51); Lymphocyte % 25.3 % (19-41); Mean Corp Hgb Conc 32.6 g/dL (32-36); Mean Corpuscular Hgb 29.2 pg (27.0-32.0); Mean Corpuscular Volume 89.4 fL (81-99); Mean Platelet Vol. 11.9 fl (6.2-12.0); Monocyte# 0.44 X10^3/uL; Monocyte% 7.2 % (0-10); NRBC Flagged by Analyzer 0 % (0-5); Neutrophil # 3.93 X10^3/uL (2.7-7.7); Neutrophil % 64.2 % (47-70); Platelet Count 216 K/mm3 (150-450); RBC Distribution Width CV 12.9 % (11.6-14.6); RBC Distribution Width SD 41.9 fl (35.1-43.9); Red Blood Count 4.83 M/mm3 (4.2-5.4); White Blood Count 6.1 K/mm3 (4.4-11.0)
[2024-03-22 16:31] LABS: Erythrocyte Sedimentation Rate 2 mm/hr (0-30)
[2024-03-22 17:08] LABS: CRP < 2.90 mg/L (0.0-3.0)
[2024-03-27 00:07] LABS: B. pertussis IgA < 1.0 index (0.0-0.9); B. pertussis IgG 1.89 index (0.00-0.94); B. pertussis IgM < 1.0 index (0.0-0.9)
== END | disposition home or self-care (01) ==
LOC: BIMLAB 14:19
PROVIDERS: PCP Internal Medicine; Referring Provider Nurse Practitioner; Visit Provider Nurse Practitioner
DX: R05.8 Other specified cough (principal)
CPT/HCPCS: 36415; 85025; 85652; 86140; 86615; 87449

== ENCOUNTER → 2024-04-10 | Outpatient (CLI) | payer BC, SELFPAY ==
--- NOTE | 2024-04-10 14:05 | CT_ITS ---
EXAM: CT CHEST WITHOUT INTRAVENOUS CONTRAST CLINICAL INDICATION: COUGH TECHNIQUE: Helically acquired images were obtained of the chest without intravenous contrast. This CT exam was performed using one or more of the following dose reduction techniques: automated exposure control, adjustment of the mA and/or kV according to patient size, and/or use of iterative reconstruction technique. COMPARISON: CTA chest 07/30/2020 FINDINGS: LUNGS AND PLEURAL SPACES: Normal. No mass. No consolidation or edema. No pleural effusion or thickening. No pneumothorax. HEART: Normal. Normal heart size. Minimal coronary artery calcification. MEDIASTINUM: Normal. No mediastinal or hilar adenopathy. Esophagus is unremarkable. No hiatal hernia. BONES/JOINTS: No suspicious lytic or blastic abnormality. VASCULATURE: No aortic aneurysm. LIVER: Mild to moderate hepatic steatosis. CT/Chest without Contrast IMPRESSION: 1. No acute cardiopulmonary abnormality. 2. Mild to moderate hepatic steatosis. Electronically Signed: Jerome Barlow MD at 15:04 EDT ,
== END | disposition home or self-care (01) ==
PROVIDERS: PCP Internal Medicine; Referring Provider Internal Medicine Pulmonary Disease; Visit Provider Internal Medicine Pulmonary Disease
DX: R05.9 Cough, unspecified (principal)
CPT/HCPCS: 71250

== ENCOUNTER → 2024-11-29 | Outpatient (CLI) | payer BC, SELFPAY ==
--- NOTE | 2024-11-29 09:55 | BI_ITS ---
EXAM: SCRN MAMM (CAD)W/MEGAN BILAT DATE: 11/29/2024 CLINICAL HISTORY: F, Age 49 y/o , SCREENING. No family history. History of prior ultrasound biopsy of the right breast. BREAST CANCER RISK ASSESSMENT: Not assessed. TECHNIQUE: Bilateral screening digital breast tomosynthesis with 2D and 3D images. Computer aided detection. COMPARISON: Prior exam(s) dating back to November 28, 2023.. FINDINGS: Bilateral Breast Mammographic Findings: No significant masses, calcifications or other abnormalities are identified. TISSUE DENSITY: The breast tissue is heterogenously dense, which may obscure small masses. A tissue clip marker is once again seen in the deep upper lateral aspect of the right breast. No suspicious masses, areas of developing architectural distortion, or suspicious calcifications. There has been no significant interval change. BI/SCRN MAMM (CAD)W/MEGAN BILAT IMPRESSION: Right Breast: BIRADS 2 BENIGN FINDING. Left Breast: BIRADS 1 NEGATIVE. OVERALL FINAL ASSESSMENT: BIRADS 2 BENIGN FINDING RECOMMENDATION: ROUTINE ANNUAL FOLLOW-UP Bilateral in 1 Year Normal interval followup mammograms are recommended in 12 months. A letter with findings and recommendations will be mailed to the patient. Reading Location: [place] [id number]
== END | disposition home or self-care (01) ==
LOC: OPBI 09:53
PROVIDERS: PCP Internal Medicine; Referring Provider Obstetrics & Gynecology; Visit Provider Obstetrics & Gynecology
DX: Z12.31 Encounter for screening mammogram for malignant neoplasm of breast (principal)
CPT/HCPCS: 77063; 77067